=== PATIENT | male | born 1945 | race Caucasian/White ===

== ENCOUNTER 2018-10-02 11:32 | Inpatient (IN) | payer MEDICARE ==
[~2018-10-02] VITALS: Ht 170.2 cm; Wt 133.8 kg
[~2018-10-02 11:32] MED LIST: ADVAIR 250-501 EACH IH; ASPIRIN CHEW81 MG PO; COUMADIN3 MG PO; DILTIAZEM HCL ER PO; GLUCOTROL XL2.5 MG PO; LASIX40 MG PO; METOLAZONE5 MG PO; POTASSIUM CHLO10 ME1 PO; PRAVASTATIN SOD20 MG PO; TERAZOSIN HCL1 MG PO
--- OUTSIDE RECORDS SUMMARY | 2018-10-02 11:36 | XMS REPORT | Clinical Summary ---
Author Author SARIA[facility] Organization [facility] Address Unknown Phone Unavailable Care Team Providers Care Fryer Operator Name Role Phone PCP Unavailable Allergies Not on File Medications Not on file Active Problems Not on file Social History Date Tobacco Use Types Packs/Day Years Used Never Assessed Sex Assigned at Date Recorded Not on file Industry Job Start Date Occupation Not on file Not on file Not on file Travel End Travel History Travel Start No recent travel history available. Last Filed Vital Signs Not on file Plan of Treatment Not on file Results Not on fileafter 10/01/2017 Insurance Payer Benefit Subscriber ID Type Phone Address Plan / Group AETNA - MEDICARE MGD CARE AETNA xxxxxxxx [facility] [phone] [address] [place] [address] [facility] [place]
[2018-10-02 12:28] LABS: BASOPHILS # (AUTO) 0.1 (0.0-0.1); BASOPHILS % 0.6 % (0.0-1.0); EOSINOPHILS # (AUTO) 0.3 (0.0-0.4); EOSINOPHILS % 3.3 % (0.0-6.0); HEMATOCRIT 22.9 % (38.2-49.6); LYMPHOCYTES # (AUTO) 0.9 (1.0-3.2); LYMPHOCYTES % 11.4 % (18.0-39.1); MEAN CORPUSCULAR HEMOGLOBIN 30.4 pg (28-32); MEAN CORPUSCULAR HGB CONC 31.4 g/dL (31-35); MEAN CORPUSCULAR VOLUME 96.6 fL (81-99); MONOCYTES # (AUTO) 1.2 (0.2-0.8); MONOCYTES % 14.8 % (4.4-11.3); NEUTROPHILS # (AUTO) 5.5 (2.1-6.9); NEUTROPHILS % 69.1 % (38.7-80.0); PLATELET COUNT 362 x10e3/uL (140-360); RED BLOOD COUNT 2.37 x10e6/uL (4.3-5.7); RED CELL DISTRIBUTION WIDTH 14.8 % (11.7-14.4)
[2018-10-02] MEDS ORDERED: PANTOPRAZOLE 40 MG 10ML VIAL IV NR (12:30)
[2018-10-02 12:32] LABS: HEMOGLOBIN 7.2 g/dL (14.0-18.0)
[2018-10-02 12:41] LABS: INR 2.97
[2018-10-02 12:42] LABS: PARTIAL THROMBOPLASTIN TIME 59.2 seconds (23.8-35.5)
[2018-10-02 12:50] LABS: ALBUMIN 3.1 g/dL (3.5-5.0); ALBUMIN/GLOBULIN RATIO 0.8 (0.8-2.0); ANION GAP 12.9 mmol/L (8-16); CALCIUM 8.5 mg/dL (8.4-10.2); CREATININE, SERUM 2.41 mg/dL (0.72-1.25); MAGNESIUM 2.3 MG/DL (1.3-2.1); POTASSIUM 3.9 mmol/L (3.5-5.1)
--- NOTE | 2018-10-02 13:05 | Diagnostic Imaging Report ---
Examination: Single AP view of the chest. COMPARISON: None. INDICATION: Atrial fibrillation DISCUSSION: Lines/tubes: None. Lungs: Low lung volumes with atelectasis. No consolidation or edema. Pleura: There is no pleural effusion or pneumothorax. Heart and mediastinum: Prominent heart size. Bones and soft tissues: No acute bony abnormalities. IMPRESSION: 1. Low inspiration chest radiograph. No acute finding. Signed by: Dr. Rico West M.D. on 10/02/2018 1:02 PM
[2018-10-02] MEDS ORDERED: FUROSEMIDE INJ 10 MG/ML 2 ML VIAL IV PRN (13:30)
[2018-10-02] MEDS ORDERED: SODIUM CHLORIDE 0.9% 250ML 250 ML IV ONE (13:30)
[2018-10-02] MEDS ORDERED: DEXTROSE 50% SYRINGE 50 ML IV PRN (14:30)
--- OUTSIDE RECORDS SUMMARY | 2018-10-02 14:42 | XMS REPORT | Clinical Summary ---
Author Author SARIAH [facility] Organization [facility] Address Unknown Phone Unavailable Care Team Providers Care Fleet Manager Name Role Phone PCP Unavailable Allergies Not [...] AETNA - MEDICARE MGD CARE AETNA xxxxxxxx [facility] [phone] [id number] [place] [address] [facility] [place]
--- OUTSIDE RECORDS SUMMARY | 2018-10-02 14:42 | XMS REPORT ---
Author [facility] Address Unknown Phone Unavailable Care Team Providers Care Pantry Steward/Stewardess Name Role Phone Lilliana MARTINEZ Unavailable Unavailable Problems This patient has no known problems. Allergies, Adverse Reactions, Alerts This patient has no known allergies or adverse reactions. Medications This patient has no known medications. Results Test Description Test Time Test Comments Text Results Atomic Results Result Comments CHEST SINGLE (PORTABLE) 2018-10-02 13:01:00 [place] [address] Patient Name: VELMA RICO MR #: [id number] : 1945 Age/Sex: 73/M Req #: [id number] Adm Physician: Ordered by: ZAKIYA MARTINEZ MD Report #: [id number] Location: ER Room/Bed: Procedure: [id number] DX/CHEST SINGLE (PORTABLE) Exam Date: 10/02/18 Exam Time: 1210 REPORT STATUS: Signed Examination: Single AP view of the chest. ALFA RISON: None. INDICATION: Atrial fibrillation DISCUSSION: Lines/tubes: None. Lungs: Low lung volumes with atelectasis. No consolidation or edema. Pleura: There is no pleural effusion or pneumothorax. Heart and mediastinum: Prominent heart size. Bones and soft tissues: No acute bony abnormalities. IMPRESSION: 1. Low inspiration chest radiograph. No acute finding. Signed by: Dr. Jc Muhammad M.D. on 10/02/2018 1:02 PM Dictated By: JC MUHAMMAD MD 1302 Transcribed By: RAE on 10/02/18 1302 COPY TO: ZAKIYA MARTINEZ MD
--- NOTE | 2018-10-02 15:30 | NUR ---
Patient admitted to unit from ER. Patient arrived via wheelchair. Patient is AAox3. Wears glasses. Ambulates with a cane. No shortness of breath noted at rest or exertion. Lung moreno clear to auscultation. Bowel sounds present x4. LBM this morning and no dark stools noted per patient. 2+ edema noted to BLE. NO c/o pain. Right AC Iv in place. Patient to receive blood transfusion.
[2018-10-02 16:08] VITALS: BP 173/76
[2018-10-02] MEDS ORDERED: LEVOTHYROXINE50 MCG PO (16:20)
[2018-10-02] MEDS ORDERED: DILTIAZEM 24HR180 MG PO (16:20)
[2018-10-02] MEDS: INSULIN LISPRO 100 UNIT/1 ML 3ML VIAL SQ SCH ×2 (16:30→21:00)
[2018-10-02] MEDS ORDERED: HYDRALAZINE HCL 25 MG TAB ONE (16:38)
[2018-10-02] MEDS: HYDRALAZINE HCL 25 MG TAB PO PRN (16:43)
[2018-10-02 16:54] VITALS: BP 173/76
[2018-10-02] MEDS ORDERED: SODIUM CHLORIDE 0.9% 250ML 250 ML ONE (17:29)
--- NOTE | 2018-10-02 17:40 | NUR ---
patient receiving blood at this time. Patient tolerating well.
[2018-10-02 18:00] LABS: BASOPHILS # (AUTO) 0.1 (0.0-0.1); BASOPHILS % 0.8 % (0.0-1.0); EOSINOPHILS # (AUTO) 0.2 (0.0-0.4); EOSINOPHILS % 2.2 % (0.0-6.0); HEMATOCRIT 27.7 % (38.2-49.6); HEMOGLOBIN 7.9 g/dL (14.0-18.0); LYMPHOCYTES # (AUTO) 1.1 (1.0-3.2); LYMPHOCYTES % 12.6 % (18.0-39.1); MEAN CORPUSCULAR HEMOGLOBIN 29.9 pg (28-32); MEAN CORPUSCULAR HGB CONC 28.5 g/dL (31-35); MEAN CORPUSCULAR VOLUME 104.9 fL (81-99); MONOCYTES % 10.9 % (4.4-11.3); NEUTROPHILS # (AUTO) 6.4 (2.1-6.9); NEUTROPHILS % 72.7 % (38.7-80.0); PLATELET COUNT 309 x10e3/uL (140-360); RED BLOOD COUNT 2.64 x10e6/uL (4.3-5.7); RED CELL DISTRIBUTION WIDTH 14.9 % (11.7-14.4)
--- NOTE | 2018-10-02 18:10 | NUR ---
Nurse went to check on patient and patient noted to be having some shortness of breath. Patient states "I just feel funny." Nurse informed for patient to tell her what he feels. He says my arms feel like lead and my chest feels tight. Rate of transfusion lowered to 75ml, patient placed on O2 at 2L NC. Afib on heart monitor. Patient has a history of Afib. Call placed to MD to inform. Awaiting call back. Call placed to charge nurse to evaluate patient as well
--- NOTE | 2018-10-02 18:28 | NUR ---
Spoke with Dr. Dominguez and received new order for benadryl 25mg po, solumedrol 40mg IV and tylenol 650mg. MD informed not to stop the blood. no reaction at this time. Continue to monitor.
[2018-10-02] MEDS ORDERED: ACETAMINOPHEN 325 MG TAB PO ONE (18:30)
[2018-10-02] MEDS ORDERED: DIPHENHYDRAMINE HCL 25 MG CAP PO ONE (18:30)
[2018-10-02] MEDS ORDERED: METHYLPREDNISOLONE SOD SUCC 40 MG/ML VIAL 1ML IV ONE (18:30)
--- NOTE | 2018-10-02 18:48 | NUR ---
Dr. Lim in room assessing patient and new order for a STAT EKG.
--- NOTE | 2018-10-02 19:04 | NUR ---
Walking rounds done and patient noted to be feeling better he said. Patient's shortness of breath has decreased. Patient sitting on edge of bed and no s/s of distress noted
--- NOTE | 2018-10-02 19:10 | NUR ---
REPORT TAKEN FROM AM RN.WALKING ROUNDS DONE.BLOOD IS TRANSFUSING.EKG TAKEN.REPORTED TO .KEEP MONITOR THE PT.
[2018-10-02 20:00] VITALS: BP 149/67
[2018-10-02 21:00] VITALS: BP 149/67
[2018-10-02] MEDS: PANTOPRAZOLE 40 MG 10ML VIAL IV SCH (22:00)
[2018-10-02] MEDS: FUROSEMIDE INJ 10 MG/ML 2 ML VIAL IV PRN (22:00)
--- NOTE | 2018-10-02 22:00 | NUR ---
FIRST UNITS OF BLOOD COMPLETED.V/S STABLE.INJ.LASIX 40 MG IV GIVEN.EDUCATE PT ABOUT THE SIDE EFFECT OF LASIX.NO RESP.DISTRESS.NO PAIN VOICED.PT REFUSED TO PUT BED ALARM ON.BED LOCKED AN DIN LOWEST POSITION.PHONE AND CALL LIGHT WITHIN REACH.INSTRUCTED TO CALL FOR ASSISTANCE NEEDED.
--- NOTE | 2018-10-02 22:29 | NUR ---
Cardiology Consult Dictation# [id number]
--- NOTE | 2018-10-02 23:30 | NUR ---
second unit blood started.v/s stable.no resp.distress.keep monitor the pt.
[2018-10-03] VITALS (8 sets, daily range): BP systolic 144–167; BP diastolic 61–71
--- NOTE | 2018-10-03 | Consultation ---
DATE OF CONSULTATION: 10/02/2018 Cardiology Consultation REQUESTING PHYSICIAN: Dr. Dominguez. REASON FOR CONSULTATION: Atrial fibrillation. HISTORY OF PRESENT ILLNESS: This is a 73-year-old man with coronary artery disease with known 100% [employer], carotid artery disease with 50% stenosis of bilateral internal carotid artery and peripheral arterial disease, status post atherectomy and drug-coated balloon angioplasty of the left external iliac and superficial femoral artery with remaining stenosis of the right SFA, atrial fibrillation, on Xarelto, hypertension, hyperlipidemia, diabetes mellitus, and chronic kidney disease, who was instructed to present to the ER due to anemia. The patient reports he has been feeling fatigued for the last week. He had labs drawn by his PCP, and was found to be anemic. He was instructed to present to the ER for further evaluation. Of note, the patient indicates he has chest pressure when he lays down that is associated with shortness of breath. Denies any nausea, diaphoresis, or radiation. The episode lasted approximately 20 minutes and with one prior episode earlier this week as well. REVIEW OF SYSTEMS: Negative as per HPI. PAST MEDICAL HISTORY: 1. Coronary artery disease with known [employer] of the LAD. 2. Carotid artery disease with 50% stenosis of the bilateral ICA. 3. Peripheral arterial disease, status post atherectomy and drug-coated balloon angioplasty of the left external iliac and superficial femoral arteries with remaining stenosis in the right SFA, atrial fibrillation, on Xarelto. 4. Hypertension. 5. Hyperlipidemia. 6. Diabetes mellitus. 7. Chronic kidney disease. 8. COPD. PAST SURGICAL HISTORY: 1. Carpal tunnel surgery. 2. Right knee surgery. ALLERGIES: PLEASE SEE EMR. MEDICATIONS: Please see medication list. SOCIAL HISTORY: Denies tobacco or illicit drugs. He does indicate he drinks about 3-4 drinks every other day. FAMILY HISTORY: Noncontributory to current illness. PHYSICAL EXAMINATION: VITAL SIGNS: Temperature 96 degrees, pulse 87, respiratory rate 18, blood pressure 173/76, and oxygen saturation 100% on 2 L nasal cannula. GENERAL: Well-developed and well-nourished man, in no acute distress. Awake and alert. HEENT: Normocephalic and atraumatic. Pupils are equal. No scleral icterus. NECK: Supple. No thyromegaly or cervical lymphadenopathy. No carotid bruits. LUNGS: Clear to auscultation bilaterally. No wheezes or crackles. CARDIOVASCULAR: Normal rate, irregularly irregular, 3/6 systolic murmur. Normal S1 and S2. ABDOMEN: Soft and nontender. EXTREMITIES: No edema. NEUROLOGIC: Nonfocal exam. LABORATORY DATA: Sodium 135, potassium 3.9, chloride 109, CO2 is 17, BUN 46, and creatinine 2.46. Troponin 0.017. BNP 799. INR 2.97. WBC 8.8, hemoglobin 7.9, hematocrit 27.7, and platelets 309. EKG, atrial fibrillation with right bundle-branch block, inferior infarct, age undetermined. IMPRESSION: 1. Anemia. 2. Chest pain. 3. Atrial fibrillation. 4. Coronary artery disease, known chronic total occlusion of the left anterior descending. 5. Carotid artery disease with 50% stenosis of the bilateral internal carotid arteries. 6. Peripheral arterial disease, status post drug-coated balloon angioplasty, atherectomy of left external iliac and superficial femoral artery, pending staged revascularization of right superficial femoral artery. 7. Hypertension and hyperlipidemia. 8. Diabetes mellitus. 9. Chronic kidney disease. 10. Chronic obstructive pulmonary disease. RECOMMENDATIONS: Repeat EKG. Trend cardiac enzymes to rule out myocardial infarction. The patient has known chronic systolic heart failure with an EF of 45% on last echo at the office. Check BNP. Could benefit from diuresis given need for blood transfusion. Hold all anticoagulation at this time. We will order a stool occult blood. The patient's heart rate is controlled. Continue home cardiac medications. Check fasting lipid panel. Monitor patient closely on telemetry. Further evaluation of bleeding per primary, titrate up antianginal therapies given the patient's known [employer]. The patient's last cath was reviewed. Other than the LAD [employer] and 99% subtotal OM, there were no other obstructive lesions. We will titrate up antianginal therapy. The patient does have known aortic stenosis by echo performed within the last few months. If the patient is ruled out for myocardial infarction, no further cardiac evaluation is indicated at this time. Thank you for this consult. We will continue to follow. Dorita Lim MD ABS/MODL /[id number]
[2018-10-03 00:27] LABS: CREATINE KINASE MB 7.7 ng/mL (0-5.0)
[2018-10-03] MEDS: FUROSEMIDE INJ 10 MG/ML 2 ML VIAL IV PRN (03:20)
--- NOTE | 2018-10-03 03:27 | NUR ---
BLOOD TRANSFUSION COMPLETED.V/S STABLE.PT TOLERATED WELL.INJ.LASIX 40 MG IV GIVEN.NO REACTION NOTED.
[2018-10-03] MEDS: HYDRALAZINE HCL 25 MG TAB PO PRN (05:33)
[2018-10-03 06:00] LABS: BASOPHILS % 0.2 % (0.0-1.0); HEMATOCRIT 30.2 % (38.2-49.6); HEMOGLOBIN 9.6 g/dL (14.0-18.0); LYMPHOCYTES # (AUTO) 0.2 (1.0-3.2); LYMPHOCYTES % 3.8 % (18.0-39.1); MEAN CORPUSCULAR HEMOGLOBIN 29.4 pg (28-32); MEAN CORPUSCULAR HGB CONC 31.8 g/dL (31-35); MONOCYTES # (AUTO) 0.1 (0.2-0.8); MONOCYTES % 0.9 % (4.4-11.3); NEUTROPHILS % 94.2 % (38.7-80.0); PLATELET COUNT 307 x10e3/uL (140-360); RED BLOOD COUNT 3.27 x10e6/uL (4.3-5.7)
[2018-10-03 06:14] LABS: MEAN CORPUSCULAR VOLUME 92.4 fL (81-99)
[2018-10-03 06:24] LABS: ALBUMIN 3.4 g/dL (3.5-5.0); ALBUMIN/GLOBULIN RATIO 0.9 (0.8-2.0); ANION GAP 15.9 mmol/L (8-16); CALCIUM 8.9 mg/dL (8.4-10.2); CREATININE, SERUM 2.54 mg/dL (0.72-1.25); POTASSIUM 3.9 mmol/L (3.5-5.1)
[2018-10-03 06:31] LABS: CREATINE KINASE MB 9.4 ng/mL (0-5.0)
--- NOTE | 2018-10-03 07:00 | NUR ---
REPORT GIVEN TO THE ONCOMING RN.WALKING ROUNDS DONE.STABLE CONDITION.
[2018-10-03 07:12] LABS: FERRITIN 19.58 ng/mL (21.81-274.66)
[2018-10-03 07:38] LABS: LYMPHOCYTES % (MANUAL) 2 % (19-48); NEUTROPHILS % (MANUAL) 98 % (40-74); PLATELET ESTIMATE ADEQUATE; PLATELET MORPHOLOGY COMMENT NORMAL; RBC MORPHOLOGY COMMENT NORMAL
[2018-10-03] MEDS: PANTOPRAZOLE 40 MG 10ML VIAL IV SCH (08:44)
[2018-10-03] MEDS: INSULIN LISPRO 100 UNIT/1 ML 3ML VIAL SQ SCH ×4 (08:44→20:33)
[2018-10-03] MEDS: DILTIAZEM HCL ER 120 MG CAP PO SCH (08:44)
--- NOTE | 2018-10-03 08:55 | NUR ---
adair wharton regarding pt c/o pressure to chest describing it as a 6/10 v/s taken are within normal limits. tele reading showing a fib at a controlled rate pt states he felt this way yesterday. looked at previous ekg ,one done yesterday and was showing a fib while pt presented these same symptoms. cardiac markers x3 have been negative. will wait on cardio to call back for further orders will continue to monitor pt
[2018-10-03] MEDS ORDERED: DILTIAZEM HCL 180 MG CAP ER PO SCH (09:00)
[2018-10-03] MEDS ORDERED: PANTOPRAZOLE 40 MG 10ML VIAL IV SCH (09:00)
--- NOTE | 2018-10-03 10:40 | NUR ---
MD METS ROUNDED ON PT. PT STATES PRESSURE TO CHEST HAS SUBSIDED. MOSTLY C/O HEAVINESS TO EXTREMITIES AND NECK. MD STATES WEAKNESS COULD BE DUE TO ANEMIA, UPON CARDIAC STANDPOINT PT IS STABLE. WILL CONTINUE CARE AT THIS TIME
[2018-10-03] MEDS ORDERED: PHYTONADIONE 5 MG TAB PO NR ×2 (11:45→14:00)
[2018-10-03 12:07] LABS: BASOPHILS % 0.1 % (0.0-1.0); HEMOGLOBIN 10.2 g/dL (14.0-18.0); LYMPHOCYTES # (AUTO) 0.4 (1.0-3.2); LYMPHOCYTES % 4.6 % (18.0-39.1); MEAN CORPUSCULAR HEMOGLOBIN 29.8 pg (28-32); MEAN CORPUSCULAR HGB CONC 31.9 g/dL (31-35); MEAN CORPUSCULAR VOLUME 93.6 fL (81-99); MONOCYTES # (AUTO) 0.2 (0.2-0.8); MONOCYTES % 2.7 % (4.4-11.3); NEUTROPHILS # (AUTO) 7.4 (2.1-6.9); NEUTROPHILS % 91.5 % (38.7-80.0); PLATELET COUNT 370 x10e3/uL (140-360); RED BLOOD COUNT 3.42 x10e6/uL (4.3-5.7); RED CELL DISTRIBUTION WIDTH 16.6 % (11.7-14.4)
[2018-10-03 12:53] LABS: CREATINE KINASE MB 10.4 ng/mL (0-5.0)
--- NOTE | 2018-10-03 13:41 | NUR ---
SOCIAL WORK INITIAL ASSESSMENT Die Lay Out Worker to bedside to discuss plan of care with patient/family. CM/SW role and care transitions discussed. Anticipated discharge plan discussed along with duration of care. CM/SW discussed patients right to make decisions in care. CM/SW work hours given. Patient lives: IN APARTMENT BY SELF Admit/Transfer: VIA ED POA/Emergency contact: TWIN SISTER IN [facility] [place] [phone] Current/Previous Home Health: NONE PCP/Follow-up Care: Kaylen HEMPHILL Current/Previous DME:[facility] Other Services: NONE Employment Status: RETIRED Areas of Concerns: NONE Referral Needs: NONE Education Needs: NONE IMM/KEANE given and signed (if applicable): IMM Goal for discharge: RETURN HOME NO NEEDS CM/SW left business card at the bedside with contact information. Name and number was also written on the patients whiteboard. Patient verbalized understanding of discussion. CM will follow-up with ongoing discharge and transition of care needs.
--- NOTE | 2018-10-03 13:56 | NUR ---
Nutrition Screen Note RD Recommendation for Physician: Continue diet as ordered Plan of Care: RD following, monitoring for adequacy and tolerance Nutrition reason for involvement: Nutrition Risk Trigger - MST Primary Diagnose(s):Anemia, CHF, Atrial flutter Ht:67 in Wt:295lbs BMI:46.2 kg/m2 IBW:148lbs RD Assessment:(10/03/2018) Initial encounter with patient. Pt is reporting a good PO intake. Had some questions about the menu and they were answeres. Pt denies any nausea, vomiting or diarrhea, nor has any difficulty chewing or swallowing. Denies any wt changes Current Diet: Cardiac diet Malnutrition Evaluation (10/03/2018) The patient does not meet criteria for a specified degree of malnutrition at this time. Will re-evaluate at follow-up as appropriate. Diet Education Needs Assessment: Diet education not indicated. Diet Adequacy: Meeting calorie needs, Meeting protein needs, Meeting fluid needs Tolerance: Tolerating PO Nutrition Care Level:Cyril Chavez RD, LD, CNSC
--- NOTE | 2018-10-03 14:42 | Consultation ---
DATE OF CONSULTATION: Gastroenterology Consultation REASON FOR CONSULTATION: Anemia. HISTORY OF PRESENT ILLNESS: Mr. Alcala is a very pleasant 73-year-old man with below past medical history. He has considerable history of anemia. He requires chronic anticoagulation. He denies any overt bleeding aside from when he scratches himself and has minor skin bleeding. Previously, he was having a lot of trouble with anemia, requiring transfusions. During that time, he reports he already underwent EGD, colonoscopy, and a capsule endoscopy as well without any revealing thing. He denies any upper or lower GI symptoms. His outpatient chart was reviewed. He underwent capsule endoscopy on November 22, 2015. At that time, he had AVM, an hour and 23 minutes into his study without active bleeding as well as healing duodenal ulcer. His EGD on August 11, 2015, had shown some reflux esophagitis, hiatal hernia, gastritis, and had been otherwise unremarkable. His colonoscopy on September 08, 2015, showed a lipoma, colonic polyps, which were removed and diverticulosis as well as uncomplicated internal hemorrhoids. He was recommended to have another colonoscopy in 3 years or repeat colon screening with Dr. Graham. PAST MEDICAL HISTORY: Hypertension, diabetes, COPD, CHF, coronary artery disease, atrial fibrillation, hypothyroidism, and chronic kidney disease. PAST SURGICAL HISTORY: Includes carpal tunnel surgery, diagnostic and therapeutic heart catheterization, angioplasty and stent. MEDICATIONS: Reviewed. Please see MAR medication reconciliation form. ALLERGIES: REVIEWED. SOCIAL HISTORY: No alcohol, tobacco, or illicit substance. FAMILY HISTORY: Reviewed, noncontributory. REVIEW OF SYSTEMS: A 10-system is positive for that mentioned in HPI. PHYSICAL EXAMINATION: GENERAL: He is calm, alert, and oriented, in no acute distress. HEENT: Pupils are equal, round, and reactive to light. NECK: Supple. LUNGS: Clear. CARDIOVASCULAR: Irregularly irregular. ABDOMEN: Soft, nontender, and nondistended. Normal bowel sounds. EXTREMITIES: He has mild pedal edema. PSYCHIATRIC: Calm, cooperative. NEUROLOGIC: Nonfocal. LABORATORY DATA: The electronic health record was reviewed for laboratory . ASSESSMENT AND PLAN: 1. [id number] anemia without overt bleeding and with a normal MCV. 2. History of peptic ulcer disease. 3. History of colon polyps. 4. 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 It is most likely that his ongoing anemia is related to AVM disease. At the current time, I would recommend checking iron studies and considering iron replacement if deficient. At the current time, he would prefer to avoid repeat endoscopic evaluation. As he has most likely bleeding related AVMs on anticoagulation, it is not completely unreasonable, however, it has been several years since his last evaluation and he is due for a screening colonoscopy if desired given his comorbidities. At the current time, we will go ahead and watch him and follow up his iron studies. Thank you very much for asking me to see Mr. Alcala. Any questions or concerns, please do not hesitate to contact me. We will follow with you. Ashely Serra MD RLS/MODL /[id number]
[2018-10-03] MEDS: PANTOPRAZOLE SOD 40 MG TABEC PO SCH (14:48)
--- NOTE | 2018-10-03 15:00 | Progress Note ---
DATE: Cardiology Progress Note SUBJECTIVE: The patient reports heaviness of his head, fatigue, pruritus of his left upper extremity. Chest discomfort this morning resolved spontaneously. OBJECTIVE: VITAL SIGNS: Temperature 96.6, heart rate 94, respirations 16, blood pressure 156/65, and oxygen saturation 98% on room air. GENERAL: He is an elderly man, seated comfortably at bedside, in no apparent distress. CARDIOVASCULAR: Irregularly irregular. Normal rate. Systolic murmur at right upper sternal border. LUNGS: Clear to auscultation. ABDOMEN: Soft and nontender. EXTREMITIES: No edema. LABORATORY DATA: Hemoglobin 9.6. Creatinine 2.54. Troponin negative x3. Telemetry monitoring revealed atrial fibrillation. IMPRESSION: 1. Acute anemia. 2. Precordial pain. 3. Atrial fibrillation. 4. Coronary artery disease with known chronic total occlusion of the left anterior descending. 5. Carotid artery disease. 6. Peripheral arterial disease status post intervention. 7. Hypertension. 8. Hyperlipidemia. 9. Diabetes mellitus. 10. Chronic kidney disease. 11. Chronic systolic congestive heart failure. RECOMMENDATIONS: Continue telemetry monitoring. Anemia workup and treatment per primary team. The patient has mild chronic systolic congestive heart failure and we will continue current cardiovascular medications. The patient has negative troponin x3. There is no evidence of acute coronary syndrome at this point in time. The patient also has a component of anxiety and treatment per primary team. I have titrated antianginal therapies and we will continue to follow clinically. DO RUDI Zimmerman/MODL /[id number]
--- NOTE | 2018-10-03 15:22 | Diagnostic Imaging Report ---
EXAM: CT Chest without contrast INDICATION: Shortness of breath. COMPARISON: Chest radiograph 10/02/18. TECHNIQUE: Chest was scanned utilizing a multidetector helical scanner from the lung apex through the level of the adrenal glands without administration of IV contrast. Coronal and sagittal reformations were obtained. Routine protocol was performed. Dose modulation, iterative reconstruction, and/or weight based adjustment of the mA/kV was utilized to reduce the radiation dose to as low as reasonably achievable. RADIATION DOSE: Total DLP: 458.4 mGy*cm COMPLICATIONS: None FINDINGS: LINES/ TUBES: None. LUNGS AND AIRWAYS/PLEURA: The central airways are patent. There is mild diffuse bronchial wall thickening. There are small bilateral pleural effusions, right greater than left. There are mild patchy opacities within the right lower lobe. Opacities limit evaluation for underlying lung nodule. Scattered calcified and noncalcified lung nodules measuring up to 2 mm. There is a 3 mm calcified granuloma in the left lower lobe on image 28. There is scarring/atelectasis in the lingula. HEART AND MEDIASTINUM: The thyroid gland is normal. No mediastinal, hilar or axillary lymphadenopathy. There is mild cardiomegaly. No evidence of pericardial effusion. There are extensive coronary atherosclerosis. Extensive atherosclerotic calcifications of the thoracic aorta and great vessels. Aortic valvular calcifications. UPPER ABDOMEN: Limited non-contrast views of the upper abdomen show no abnormality within the partially visualized liver, spleen, or stomach. BONES: No acute osseous abnormality. No suspicious lytic or blastic lesions. Degenerative changes of the visualized spine. IMPRESSION: Small bilateral pleural effusions with patchy opacities in the right lower lobe, which may represent atelectasis or pneumonia in the appropriate clinical context. Signed by: Dr. Sherita Renteria MD on 10/03/2018 3:19 PM
[2018-10-04] VITALS (7 sets, daily range): BP systolic 123–177; BP diastolic 59–78
--- NOTE | 2018-10-04 00:51 | History and Physical ---
CHIEF COMPLAINT: Increasing shortness of breath, rapid heart rate, and anemia. PRIMARY CARE PHYSICIAN: Redd Franco MD. HISTORY OF PRESENT ILLNESS: The patient is a 73-year-old male with increasing fatigue and shortness of breath. The patient had his lab work checked previously and noticed that he has severe anemia. The patient was sent to the emergency room for an evaluation. In the emergency room, the patient was found to have hemoglobin and hematocrit of 7.2 and 22.9 respectively. The patient now received 2 units of blood transfusion. The patient is otherwise stable. He has previously had multiple workups in the past. He has iron deficiency anemia. He does have history of diverticulosis. He is on blood thinner for his atrial fibrillation. The patient is taking Xarelto. His total iron is 25 with iron saturation of 5% and transferrin is elevated at 377. BUN and creatinine are 45 and 2.5. The patient is pending for further evaluation. In the emergency room, the patient's heart rate was under control at 77 beats minute. The patient does have atrial fibrillation, however. PAST MEDICAL HISTORY: Chronic anemia, most likely secondary to diverticulosis. He is on anticoagulant therapy for atrial fibrillation. He had coronary artery disease with previous intervention. He has stent previously. He had carotid disease with noncritical stenosis. Peripheral vascular disease, hypertension, dyslipidemia, diabetes type 2, chronic kidney disease, and COPD. PAST SURGICAL HISTORY: Right knee surgery, carpal tunnel surgery, and angioplasty. SOCIAL HISTORY: The patient does not smoke or use alcohol. No recreational drugs. ALLERGIES: MORPHINE. HOME MEDICATIONS: List is reviewed. Aspirin, diltiazem, Xarelto, metolazone, pravastatin, levothyroxine, and Lasix. PHYSICAL EXAMINATION: VITAL SIGNS: Temperature is 97, blood pressure 173/74, pulse rate is 74, and respirations 18. GENERAL: The patient is not in acute distress. He is awake. HEENT: Normocephalic and atraumatic. Anicteric. NECK: Supple grossly. PULMONARY: Diminished breath sounds at the bases without any wheezing or rales. CARDIOVASCULAR: S1 and S2. Rate controlled atrial fibrillation. ABDOMEN: Obese. EXTREMITIES: No cyanosis or edema. NEUROLOGIC: No gross focal deficits. LABORATORY DATA: Sodium is 135, potassium 3.9, chloride 109, bicarb 17, BUN 46, creatinine 2.4, and glucose 130. AST and ALT are normal. Troponins negative. WBC is 7.7, hemoglobin 7.2, hematocrit 22.9, and platelets 362. Fecal occult blood is positive. INR is 2.97. IMPRESSION: 1. Chronic anemia secondary to , most likely diverticular bleed. The patient is on anticoagulant therapy. 2. Multiple chronic baseline problems including congestive heart failure, atrial fibrillation, chronic anemia, and diverticular disease. PLAN: The patient is pending for endoscopy. Continue with home medication. Hold off on his anticoagulant therapy for now. Repeat lab work. Many pending on further evaluation. IV Lasix. The chest x-ray did show some possible vascular congestion. We will obtain a CT of the chest without contrast. MD MACK Rubio/NANO /[id number]
[2018-10-04 06:05] LABS: BASOPHILS % 0.3 % (0.0-1.0); EOSINOPHILS % 0.3 % (0.0-6.0); HEMOGLOBIN 8.8 g/dL (14.0-18.0); LYMPHOCYTES # (AUTO) 0.7 (1.0-3.2); LYMPHOCYTES % 6.3 % (18.0-39.1); MEAN CORPUSCULAR HEMOGLOBIN 29.6 pg (28-32); MEAN CORPUSCULAR HGB CONC 31.4 g/dL (31-35); MEAN CORPUSCULAR VOLUME 94.3 fL (81-99); MONOCYTES % 8.8 % (4.4-11.3); NEUTROPHILS # (AUTO) 9.5 (2.1-6.9); NEUTROPHILS % 83.7 % (38.7-80.0); PLATELET COUNT 305 x10e3/uL (140-360); RED BLOOD COUNT 2.97 x10e6/uL (4.3-5.7); RED CELL DISTRIBUTION WIDTH 16.6 % (11.7-14.4)
[2018-10-04 06:28] LABS: ANION GAP 15.7 mmol/L (8-16); CALCIUM 8.6 mg/dL (8.4-10.2); CREATININE, SERUM 2.65 mg/dL (0.72-1.25); POTASSIUM 3.7 mmol/L (3.5-5.1)
[2018-10-04] MEDS: INSULIN LISPRO 100 UNIT/1 ML 3ML VIAL SQ SCH ×4 (07:30→21:00)
[2018-10-04] MEDS: DILTIAZEM HCL ER 120 MG CAP PO SCH (08:30)
[2018-10-04] MEDS: PANTOPRAZOLE SOD 40 MG TABEC PO SCH (08:30)
[2018-10-04] MEDS ORDERED: ACETAMINOPHEN 325 MG TAB PO NR (10:45)
[2018-10-04] MEDS ORDERED: DIPHENHYDRAMINE HCL 25 MG CAP PO NR (10:45)
[2018-10-04] MEDS: IRON SUCROSE 100 MG in SODIUM CHLORIDE 0.9% 100 ML 100 ML IV SCH (11:52)
[2018-10-04] MEDS ORDERED: NEBIVOLOL 10 MG TAB PO SCH (12:15)
--- NOTE | 2018-10-04 12:31 | NUR ---
SPOKE WITH MD ALICEA REGARDING HIGH BP OF 177/78 AND HR OF 78 NEW ORDERS FOR BYSTOLIC STARTED DAILY GIVEN
--- NOTE | 2018-10-04 14:24 | NUR ---
TELE CALLED PT HR DROPPED TO 48. WENT INTO PT ROOM , PT IS IN NO S.S OF DISTRESS, RESTING COMFORTABLY IN BED ,WILL CONTINUE TO MONITOR CLOSELY
--- NOTE | 2018-10-04 15:44 | NUR ---
spoke with md wharton regarding pt sustained low hr in the 40s, reported pt is asymptomatic. states he will be here shortly to round . no orders received at this time
[2018-10-04] MEDS ORDERED: PEG (High)/E-LYTE SOLN 4,000 ML BTL PO NR (16:45)
--- NOTE | 2018-10-04 18:39 | NUR ---
md wharton has rounded on pt and has addressed low hr by changing bp medication. pt remains asymptomatic .will continue to monitor
--- NOTE | 2018-10-04 20:39 | Progress Note ---
DATE: 10/04/2018 Cardiology Progress Note SUBJECTIVE: No further anginal symptoms. No other events. Blood pressure was elevated, given Bystolic. OBJECTIVE: VITAL SIGNS: Temperature is 96.3, heart rate is 56, respirations are 18, blood pressure is 133/59, and ox saturation is 98% on room air. GENERAL: He is well-appearing, well-built man, in no apparent distress. CARDIOVASCULAR: Irregularly irregular. Normal rate. Systolic murmur at the right sternal border. LUNGS: Clear to auscultation. ABDOMEN: Soft, nontender, and nondistended. EXTREMITIES: No edema. MEDICATIONS: Cardiovascular medications reviewed. Notable, the patient received Bystolic and Cardizem today. LABORATORY VALUES: Reviewed. Telemetry monitoring this morning revealed atrial fibrillation. IMPRESSION: 1. Acute anemia. 2. Precordial pain. 3. Atrial fibrillation. 4. Coronary artery disease. 5. Carotid artery disease. 6. Peripheral artery disease, status post intervention. 7. Hypertension. 8. Hyperlipidemia. 9. Chronic systolic congestive heart failure. 10. Xbojz-zl-mgdsjnl kidney disease. RECOMMENDATIONS: Continue close telemetry monitoring. The patient is tachy-bradycardic, however, he did receive Bystolic and Cardizem today. We will discontinue his Cardizem. Continue Bystolic and add amlodipine today for better blood pressure control. No evidence of acute coronary syndrome at this point in time for his chest pain as his troponin values are within normal limits x3. The patient has a component of anxiety and treatment per primary team. Jordi Birch DO BM/MODL /[id number]
--- NOTE | 2018-10-04 22:15 | NUR ---
PT ON BOWEL PREP FOR EGD AND COLONOSCOPY TOMORROW. CLEAR BM NOTED.
[2018-10-05] VITALS (7 sets, daily range): BP systolic 137–178; BP diastolic 63–74
[2018-10-05] MEDS: LEVOTHYROXINE SODIUM 50 MCG TAB PO SCH (06:00)
[2018-10-05 07:02] LABS: BASOPHILS # (AUTO) 0.1 (0.0-0.1); BASOPHILS % 0.7 % (0.0-1.0); EOSINOPHILS # (AUTO) 0.4 (0.0-0.4); EOSINOPHILS % 5.1 % (0.0-6.0); HEMATOCRIT 29.2 % (38.2-49.6); HEMOGLOBIN 9.3 g/dL (14.0-18.0); LYMPHOCYTES # (AUTO) 1.2 (1.0-3.2); LYMPHOCYTES % 14.6 % (18.0-39.1); MEAN CORPUSCULAR HEMOGLOBIN 29.3 pg (28-32); MEAN CORPUSCULAR HGB CONC 31.8 g/dL (31-35); MEAN CORPUSCULAR VOLUME 92.1 fL (81-99); MONOCYTES # (AUTO) 0.8 (0.2-0.8); MONOCYTES % 9.3 % (4.4-11.3); NEUTROPHILS % 69.8 % (38.7-80.0); PLATELET COUNT 317 x10e3/uL (140-360); RED BLOOD COUNT 3.17 x10e6/uL (4.3-5.7); RED CELL DISTRIBUTION WIDTH 16.1 % (11.7-14.4)
--- NOTE | 2018-10-05 07:08 | NUR ---
UPON WALKING ROUNDS, PM NURSE STATES PT IS CLEAR FOR COLONOSCOPY AND LAST BM WAS LAST NIGHT, PT EDUCATED ON NPO PENDING PROCEDURES, VERBALIZED UNDERSTANDING, CALL LIGHT WITHIN REACH
[2018-10-05] MEDS: INSULIN LISPRO 100 UNIT/1 ML 3ML VIAL SQ SCH ×4 (07:30→20:45)
[2018-10-05] MEDS: PANTOPRAZOLE SOD 40 MG TABEC PO SCH (07:30)
[2018-10-05] MEDS: AMLODIPINE BESYLATE 10 MG TAB PO SCH (09:00)
[2018-10-05] MEDS: NEBIVOLOL 10 MG TAB PO SCH (09:00)
--- NOTE | 2018-10-05 09:05 | NUR ---
CONSENT COMPLETED FOR GERRI AND COLONOSCOPY, PT STATES HE IS CLEAR, LAST BM WAS "LAST NIGHT", PT EDUCATED TO CALL FOR ASSISTANCE PRIOR TO GETTING OOB FOR SAFETY AND THE NEXT TIME HE HAS BM SO NURSE CAN ACCESS, PT VERBALIZED UNDERSTANDING, CALL LIGHT WITHIN REACH
--- NOTE | 2018-10-05 09:22 | NUR ---
IMM EXPLAINED TO PT, SIGNED AND PLACED ON CHART COPY TO PT IN CARE TRANSITION FOLDER
[2018-10-05] MEDS ORDERED: SODIUM CHLORIDE 0.9% 250ML 250 ML ONE (10:59)
[2018-10-05] MEDS: IRON SUCROSE 100 MG in SODIUM CHLORIDE 0.9% 100 ML 100 ML IV SCH (11:00)
--- NOTE | 2018-10-05 12:50 | NUR ---
PT WHEELED OFF UNIT VIA STRETCHER FOR EGD/COLONOSCOPY, NO CHANGE IN CONDITION
--- NOTE | 2018-10-05 15:06 | NUR ---
REPORT TO ALMITA RINCON TAKING OVER CARE OF PT
--- NOTE | 2018-10-05 15:14 | NUR ---
RECD PT FROM RECOVERY VIA STRETCHER AAOX3,DENIES PAIN ,NO DISTRESS NOTED,PT AMBULATED TO BED WITH ASSIST TOLERATED WELL.GLUCOSE 82 FROM PACU.
--- NOTE | 2018-10-05 17:15 | Progress Note ---
DATE: 10/05/2018 Cardiology Progress Note SUBJECTIVE: No major events overnight. OBJECTIVE: VITAL SIGNS: Temperature 96.5, pulse 86, respiratory rate 18, blood pressure 137/63, satting 96% on room air. GENERAL: Elderly man, well developed, well nourished, in no acute distress. CARDIOVASCULAR: Regular rate and rhythm. No murmurs, rubs, or gallops. LUNGS: Clear to auscultation bilaterally. ABDOMEN: Soft, nontender, and nondistended. NEURO/PSYCH: Alert and oriented to person, place, and time. Normal affect. INPATIENT MEDICATIONS: Reviewed. LABORATORY DATA: Reviewed. TELEMETRY: Data reviewed and shows atrial fibrillation. ASSESSMENT AND PLAN: 1. Acute anemia. 2. Precordial pain. 3. Atrial fibrillation. 4. Coronary artery disease. 5. Carotid artery disease. 6. Peripheral arterial disease, status post intervention. 7. Hypertension. 8. Hyperlipidemia. 9. Chronic systolic congestive heart failure. 10. Acute on chronic kidney disease. RECOMMENDATIONS: The patient remains on Bystolic and amlodipine. Heart rate well controlled overall. Blood pressure has improved today as well. Continue current cardiovascular medications. Thank you for this consult. We will continue to follow. MD CRISTOPHER Lozoya/NANO /[id number]
--- NOTE | 2018-10-05 17:26 | NUR ---
PT UP ON SIDE OF BED NO C/O PAIN
[2018-10-05] MEDS ORDERED: MIDAZOLAM HCL 2 MG/2 ML VIAL ONE (18:40)
[2018-10-05] MEDS ORDERED: KETAMINE HCL INJ 50 MG/ML 10 ML VIAL ONE (18:40)
--- NOTE | 2018-10-05 19:05 | NUR ---
Report received from morning nurse. Pt alert and orient to name. Pt lying in bed HOB 30 degrees. Denies pain at this time. No acute distress noted. Call luque within reach. Will continue to monitor.
[2018-10-05] MEDS ORDERED: PROPOFOL IV EMULSION 10 MG/ML 20 ML VIAL ONE (19:06)
[2018-10-05] MEDS ORDERED: IRON SUCROSE 100 MG in SODIUM CHLORIDE 0.9% 100 ML 100 ML IV SCH (20:00)
[2018-10-06] VITALS: BP 140/66
[2018-10-06 04:00] VITALS: BP 154/70
[2018-10-06] MEDS: LEVOTHYROXINE SODIUM 50 MCG TAB PO SCH (05:34)
[2018-10-06 07:30] VITALS: BP 165/72
--- NOTE | 2018-10-06 07:30 | NUR ---
PT SITTING ON SIDE OF BED NO C/O PAIN ,TELE IN PLAE NO DISTRESS NTOED.
[2018-10-06 07:57] VITALS: BP 165/72
[2018-10-06] MEDS: NEBIVOLOL 10 MG TAB PO SCH (08:22)
[2018-10-06] MEDS: PANTOPRAZOLE SOD 40 MG TABEC PO SCH (08:22)
[2018-10-06] MEDS: AMLODIPINE BESYLATE 10 MG TAB PO SCH (08:23)
--- NOTE | 2018-10-06 10:06 | NUR ---
PT DISCHARGED HOME,IV DCD WITHOUT REDNESS OR SWELLING,TRANSPORTED TO [facility] VIA W/C
== END 2018-10-06 10:06 | disposition home or self-care (01) | DRG 392 ==
LOC: ER 11:32 → ERHOLD 14:39 → MED/SURG 15:37 → MED/SURG3 10-05 15:05
PROVIDERS: ADMIT Internal Medicine; ATTEND Internal Medicine
PROC: 30233N1 Transfusion of Nonautologous Red Blood Cells into Peripheral Vein, Percutaneous Approach (ICD-10-PCS; 2018-10-02)
PROC: 0DB78ZX Excision of Stomach, Pylorus, Via Natural or Artificial Opening Endoscopic, Diagnostic (ICD-10-PCS; 2018-10-05)
PROC: 0DBM8ZX Excision of Descending Colon, Via Natural or Artificial Opening Endoscopic, Diagnostic (ICD-10-PCS; principal; 2018-10-05 13:00)
PROC: 0DBL8ZX Excision of Transverse Colon, Via Natural or Artificial Opening Endoscopic, Diagnostic (ICD-10-PCS; 2018-10-05 13:00)
PROC: 0DBP8ZX Excision of Rectum, Via Natural or Artificial Opening Endoscopic, Diagnostic (ICD-10-PCS; 2018-10-05 13:00)
PROC: 0DB98ZX Excision of Duodenum, Via Natural or Artificial Opening Endoscopic, Diagnostic (ICD-10-PCS; 2018-10-05 13:00)
DX: K31.819 Angiodysplasia of stomach and duodenum without bleeding (principal); N17.9 Acute kidney failure, unspecified; I13.0 Hypertensive heart and chronic kidney disease with heart failure and stage 1 through stage 4 chronic kidney disease, or unspecified chronic kidney disease; I50.22 Chronic systolic (congestive) heart failure; D62 Acute posthemorrhagic anemia; D50.9 Iron deficiency anemia, unspecified; K29.80 Duodenitis without bleeding; K63.5 Polyp of colon; K57.90 Diverticulosis of intestine, part unspecified, without perforation or abscess without bleeding; Z87.11 Personal history of peptic ulcer disease; I48.2 Chronic atrial fibrillation; Z79.01 Long term (current) use of anticoagulants; I25.10 Atherosclerotic heart disease of native coronary artery without angina pectoris; I73.9 Peripheral vascular disease, unspecified; E78.5 Hyperlipidemia, unspecified; J44.9 Chronic obstructive pulmonary disease, unspecified; I65.23 Occlusion and stenosis of bilateral carotid arteries; N18.9 Chronic kidney disease, unspecified; E11.22 Type 2 diabetes mellitus with diabetic chronic kidney disease; Z79.4 Long term (current) use of insulin
CPT/HCPCS: 36415; 43239; 43255; 45380; 45385; 71045; 71250; 80048; 80053; 80061; 82270; 82550; 82553; 82728; 82948; 83540; 83735; 83880; 84466; 84484; 85025; 85610; 85730; 86850; 86900; 86920; 88305; 88312; 93005; 93306; 99284; J1756; J1940; J2250; J2920; J7050; P9016

== ENCOUNTER 2019-03-22 13:48 | Inpatient (IN) | payer MEDICARE ==
[~2019-03-22] VITALS: Ht 170.2 cm; Wt 67.6 kg
[~2019-03-22 13:48] MED LIST changes: +DILTIAZEM 24HR180 MG PO; +LEVOTHYROXINE50 MCG PO
--- OUTSIDE RECORDS SUMMARY | 2019-03-22 13:52 | XMS REPORT | Summary of Care ---
Author Author CALVIN Logan, ABBI Organization Unknown Address Unknown Phone Unavailable Care Team Providers Care Fleece Tier Name Role Phone ABBI MINAYA M.D. Unavailable Unavailable JESUS HEMPHILL MD Unavailable Unavailable Abbi Minaya MD Unavailable Unavailable Unavailable Unavailable Functional Status Name Dates Details Functional status health issues are not documented Status: Name Dates Details Cognitive status health issues are not documented Status: Problems Name Dates Details Fracture of femoral neck, left (820.8, S72.002A) Status: Active Medications Name Dates Details Medications not documented Allergies and Adverse Reactions Name Dates Details Allergy history not documented Status: Procedures Procedure Dates Details Post Op Promis 29 Survey Date: 18-Nov-2018 Immunization Name Dates Details Immunizations not documented Social History Name Dates Details Unknown if ever smoked Vital Signs Date Test Result Details No Known Vitals to report Results Date Description Value Details [id number] [U] XRAY PELVIS 1 OR 2 VWS [id number] XR PELVIS 1 OR 2 VWS Images acquired, not reported on this accession number. [id number] [U] XRAY HAND MIN 3 VWS LEFT [id number] XR HAND MIN 3 VWS LEFT Images acquired, not reported on this accession number. Plan of Care Name Dates Details Planned Observations Planned Goals not documented Planned Encounters Appointment; ABBI MINAYA M.D. On: 09-Apr-2019 11:00 Interventions Provided Labs/Procedures/Imaging* [U] XRAY HAND MIN 3 VWS LEFT [id number]; Done: 08 Jan 2019 * [U] XRAY PELVIS 1 OR 2 VWS [id number]; Done: 08 Jan 2019 Instructions Name Dates Details Instructions not documented Encounters Appointment; ABBI MINAYA M.D. Encounter Diagnosis: Problem not documented On: 30-Oct-2018 8:30 Appointment; ABBI MINAYA M.D. Encounter Diagnosis: Problem not documented On: 27-Nov-2018 11:00 Appointment; ABBI MINAYA M.D. Encounter Diagnosis: Problem not documented On: 08-Jan-2019 11:00
--- OUTSIDE RECORDS SUMMARY | 2019-03-22 13:52 | XMS REPORT | Continuity of Care Document ---
Author Author [employer] Organization [facility] [employer] Information [employer] Address Unknown Phone Unavailable Care Team Providers Care Scuba Diving Instructor Name Role Phone [facility] [employer] Information [employer] Unavailable Unavailable Problems Problem Status Onset Date Classification Date Reported Comments Source Anemia Active 09/05/2015 Problem 10/06/2018 [facility] Atrial flutter Active Problem 10/06/2018 [facility] CHF Active Problem 10/06/2018 [facility] Medications Medication Details Route Status Patient Instructions Ordering Provider Order Date Source Aspirin (Aspirin Chew) 81 Mg Chew, 81 Mg Oral Daily Active 10/06/2018 [facility] Metolazone 5 Mg Tablet, 5 Mg Oral Daily Active 10/06/2018 [facility] Diltiazem Hcl Er , 240 Mg Oral Daily Active 10/02/2018 [facility] Glipizide (Glucotrol Xl*) 2.5 Mg Tab.er.24, 2.5 Mg Oral Daily Active 10/02/2018 [facility] Potassium Chloride 10 Meq Tab.er.prt, 10 Meq Oral Twice A Day Active 10/02/2018 [facility] Terazosin Hcl 1 Mg Capsule, 1 Mg Oral Daily Active 10/02/2018 [facility] Warfarin Sodium (Coumadin*) 3 Mg Tablet, 3 Mg Oral Daily Active 10/02/2018 [facility] Diltiazem Hcl (Diltiazem 24HR Er) 180 Mg Capcr Daily Active [facility] Furosemide (Lasix) 40 Mg Tablet Daily Active [facility] Levothyroxine Sodium 50 Mcg Tablet Daily@0600 Active [facility] Pravastatin Sodium 20 Mg Tablet Bedtime Active [facility] Allergies, Adverse Reactions, Alerts Substance Category Reaction Severity Reaction type Status Date Reported Comments Source Morphine SWEATING, ITCHING, INTOLERANCE Mild Allergy to Substance Active 08/04/2016 [facility] Immunizations No Data Provided for This Section Results Order Name Results Value Reference Range Date Interpretation Comments Source Capillary blood glucose measurement by glucometer (mass/volume) 99 70 - 120 10/06/2018 [facility] Blood leukocytes automated count (number/volume) 8.51 4.8 - 10.8 10/05/2018 [facility] Blood erythrocytes automated count (number/volume) 3.17 4.3 - 5.7 10/05/2018 [facility] Blood hemoglobin measurement (moles/volume) 9.3 14.0 - 18.0 10/05/2018 [facility] Automated blood hematocrit (volume fraction) 29.2 38.2 - 49.6 10/05/2018 [facility] Automated erythrocyte mean corpuscular volume 92.1 81 - 99 10/05/2018 [facility] Automated erythrocyte mean corpuscular hemoglobin (mass per erythrocyte) 29.3 28 - 32 10/05/2018 [facility] Automated erythrocyte mean corpuscular hemoglobin concentration measurement (mass/volume) 31.8 31 - 35 10/05/2018 [facility] RDW BldCo-Rto 16.1 11.7 - 14.4 10/05/2018 [facility] Automated blood platelet count (count/volume) 317 140 - 360 10/05/2018 [facility] Automated blood segmented neutrophil count as percentage of total leukocytes 69.8 38.7 - 80.0 10/05/2018 [facility] Automated blood lymphocyte count as percentage ot total leukocytes 14.6 18.0 - 39.1 10/05/2018 [facility] Automated blood monocyte count as percentage of total leukocytes 9.3 4.4 - 11.3 10/05/2018 [facility] Automated blood eosinophil count as percentage of total leukocytes 5.1 0.0 - 6.0 10/05/2018 [facility] Automated blood basophil count as percentage of total leukocytes 0.7 0.0 - 1.0 10/05/2018 [facility] IM GRANULOCYTES % 0.5 0.0 - 1.0 10/05/2018 [facility] Automated blood neutrophil count 6.0 2.1 - 6.9 10/05/2018 [facility] Blood lymphocytes count (number/volume) 1.2 1.0 - 3.2 10/05/2018 [facility] Blood monocytes automated count (number/volume) 0.8 0.2 - 0.8 10/05/2018 [facility] Automated blood eosinophil count 0.4 0.0 - 0.4 10/05/2018 [facility] Automated blood basophil count (count/volume) 0.1 0.0 - 0.1 10/05/2018 [facility] Absolute Immature Granulocyte (auto 0.04 0 - 0.1 10/05/2018 [facility] Serum or plasma sodium measurement (moles/volume) 137 136 - 145 10/04/2018 [facility] Serum or plasma potassium measurement (moles/volume) 3.7 3.5 - 5.1 10/04/2018 [facility] Serum or plasma chloride measurement (moles/volume) 109 98 - 107 10/04/2018 [facility] Serum or plasma carbon dioxide, total measurement (moles/volume) 16 22 - 29 10/04/2018 [facility] Serum or plasma anion gap 15.7 8 - 16 10/04/2018 [facility] Serum or plasma urea nitrogen measurement (mass/volume) 63 7 - 26 10/04/2018 [facility] Serum or plasma creatinine measurement (mass/volume) 2.65 0.72 - 1.25 10/04/2018 [facility] Serum or plasma urea nitrogen/creatinine mass ratio 24 6 - 25 10/04/2018 [facility] Estimated glomerular filtration rate (GFR) determination 24 60 10/04/2018 [facility] Glucose measurement 115 74 - 118 10/04/2018 [facility] Serum or plasma calcium measurement (mass/volume) 8.6 8.4 - 10.2 10/04/2018 [facility] Serum or plasma creatine kinase measurement (enzymatic activity/volume) 200 30 - 200 10/03/2018 [facility] Serum or plasma creatine kinase MB measurement (mass/volume) 10.40 0 - 5.0 10/03/2018 [facility] Troponin I measurement by highly sensitive enzyme immunoassay 0.030 0 - 0.300 10/03/2018 [facility] Stool gastrointestinal hemoglobin detection POSITIVE NEGATIVE 10/03/2018 [facility] Differential Total Cells Counted 100 10/03/2018 [facility] Manual blood neutrophils/100 leukocytes 98 40 - 74 10/03/2018 [facility] Manual blood lymphocytes/100 leukocytes 2 19 - 48 10/03/2018 [facility] Blood platelets count by estimate (number/volume) ADEQUATE 10/03/2018 [facility] Platelet morphology NORMAL 10/03/2018 [facility] RBC morphology NORMAL 10/03/2018 [facility] Serum or plasma iron measurement (mass/volume) 25 65 - 175 10/03/2018 [facility] Serum or plasma iron binding capacity measurement (mass/volume) 528 261 - 478 10/03/2018 [facility] Serum or plasma iron saturation measurement (mass fraction) 5 15 - 50 10/03/2018 [facility] Serum or plasma transferrin measurement (mass/volume) 377 174 - 364 10/03/2018 [facility] Serum or plasma ferritin measurement (mass/volume) 19.58 21.81 - 274.66 10/03/2018 [facility] Serum or plasma total bilirubin measurement (mass/volume) 1.4 0.2 - 1.2 10/03/2018 [facility] Aspartate Amino Transf (AST/SGOT) 13 5 - 34 10/03/2018 [facility] Serum or plasma alanine aminotransferase measurement (enzymatic activity/volume) 11 0 - 55 10/03/2018 [facility] Serum or plasma protein measurement (mass/volume) 7.4 6.5 - 8.1 10/03/2018 [facility] Serum or plasma albumin measurement (mass/volume) 3.4 3.5 - 5.0 10/03/2018 [facility] Plasma globulin measurement (mass/volume) 4.0 2.3 - 3.5 10/03/2018 [facility] Serum or plasma albumin/globulin mass ratio 0.9 0.8 - 2.0 10/03/2018 [facility] Serum or plasma alkaline phosphatase measurement (enzymatic activity/volume) 108 40 - 150 10/03/2018 [facility] Serum or plasma triglyceride measurement (mass/volume) 70 0 - 149 10/03/2018 [facility] Serum or plasma cholesterol measurement (mass/volume) 166 0 - 199 10/03/2018 [facility] Serum or plasma cholesterol in LDL measurement (mass/volume) 97 60 - 130 10/03/2018 [facility] Serum or plasma cholesterol in HDL measurement (mass/volume) 55 40 - 60 10/03/2018 [facility] Serum or plasma total cholesterol/cholesterol in HDL mass ratio 3.0 3.9 - 4.7 10/03/2018 [facility] BNP d[facility] 799.6 0 - 100 10/02/2018 [facility] Prothrombin time (PT) in platelet poor plasma by coagulation assay 33.0 11.9 - 14.5 10/02/2018 [facility] INR in Platelet poor plasma by Coagulation assay 2.97 10/02/2018 [facility] Activated partial thromboplastin time (aPTT) in platelet poor plasma bycoagulation assay 59.2 23.8 - 35.5 10/02/2018 [facility] Serum or plasma magnesium measurement (mass/volume) 2.3 1.3 - 2.1 10/02/2018 [facility] Pathology Reports No Data Provided for This Section Diagnostic Reports No Data Provided for This Section Consultation Notes No Data Provided for This Section Discharge Summaries No Data Provided for This Section History and Physicals No Data Provided for This Section Vital Signs No Data Provided for This Section Encounters Location Location Details Encounter Type Encounter Number Reason For Visit Attending Provider ADM Date DC Date Status Source Discharged Inpatient [id number] SABRINA ALICEA MD 10/02/2018 10/06/2018 [facility] Procedures Procedure Code Date Perfomer Comments Source EGD with biopsy [id number] 10/05/2018 [facility] Colonoscopy with biopsy [id number] 10/05/2018 [facility] Colonoscopy with polypectomy [id number] 10/05/2018 [facility] Computed tomography of chest without contrast [id number] 10/03/[address] [facility] Assessment and Plan No Data Provided for This Section Plan of Care Plan of Care Date Source Discharge Date 10/06/18 10:06am Disposition HOME, SELF-CARE Instructions/Education Provided Anemia Congestive Heart Failure Prescriptions See Medication Section Referrals TREVER EDOUARD MD (Cardiology) Order Date: 1-2 Weeks Entered Date: 10/06/2018 9:45am Address: [address] [place] [id number] VISHAL NESS MD (Gastroenterology) Order Date: 1-2 Weeks Entered Date: 10/06/2018 9:46am Address: [address] [place] [address] [id number] 10/06/2018 [facility] Social History Social History Date Source Social History Problem Response Recorded Date/Time Onset Date Status Hx Psychiatric Problems No 09/05/2015 2:05pm Not Applicable Not Applicable Hx Eating Disorder No 09/05/2015 2:05pm Not Applicable Not Applicable Hx Substance Use Disorder No 09/05/2015 2:05pm Not Applicable Not Applicable Hx Depression No 09/05/2015 2:05pm Not Applicable Not Applicable Hx Alcohol Use No 09/05/2015 2:05pm Not Applicable Not Applicable Hx Substance Use Treatment No 09/05/2015 2:05pm Not Applicable Not Applicable Hx Physical Abuse No 09/05/2015 2:05pm Not Applicable Not Applicable 10/06/2018 [facility] Family History No Data Provided for This Section Advance Directives Order Name Results Value Date Source Advance Directives Advance Directives Directive Response Recorded Date/Time Does the patient have an advance directive? No 10/02/18 3:45pm If yes, is advance directive on file with [facility]? No 09/05/15 2:05pm If not on file with [facility] will patient provide a copy? Yes 09/05/15 2:05pm Do you have a Directive to Physician? No 10/02/18 1:50pm Do you have a Medical Power of Pediatric Physician Assistant? No 10/02/18 1:50pm Do you have an out of hospital Do Not Resuscitate Order? No 10/02/18 1:50pm Do you have any special needs we should be aware of? No 10/02/18 1:50pm Do you have a support person here with you today? Yes 10/02/18 1:50pm Did patient receive Notice of Privacy Practices? Yes 10/02/18 1:50pm Did patient receive patient rights and responsibilities? Yes 10/02/18 1:50pm 10/06/2018 [facility] Functional Status No Data Provided for This Section
--- OUTSIDE RECORDS SUMMARY | 2019-03-22 13:52 | XMS REPORT | Clinical Summary ---
Author Author SARIAH [facility] Organization [facility] Address Unknown Phone Unavailable Care Team Providers Care Research Scientist Name Role Phone PCP Unavailable Allergies Not [...] Not on file Results Not on fileafter 03/21/2018 Insurance Payer Benefit Subscriber ID Type Phone Address Plan / Group [employer] - MEDICARE MGD CARE [employer] xxxxxxxx [facility] [phone] [address] [place] [address] O POS
[2019-03-22 15:05] LABS: BASOPHILS # (AUTO) 0.1 (0.0-0.1); BASOPHILS % 0.6 % (0.0-1.0); EOSINOPHILS # (AUTO) 0.2 (0.0-0.4); HEMATOCRIT 40.4 % (38.2-49.6); HEMOGLOBIN 12.7 g/dL (14.0-18.0); LYMPHOCYTES # (AUTO) 0.7 (1.0-3.2); LYMPHOCYTES % 9.2 % (18.0-39.1); MEAN CORPUSCULAR HEMOGLOBIN 31.5 pg (28-32); MEAN CORPUSCULAR HGB CONC 31.4 g/dL (31-35); MEAN CORPUSCULAR VOLUME 100.2 fL (81-99); MONOCYTES # (AUTO) 0.6 (0.2-0.8); MONOCYTES % 7.7 % (4.4-11.3); NEUTROPHILS # (AUTO) 6.4 (2.1-6.9); NEUTROPHILS % 80.1 % (38.7-80.0); PLATELET COUNT 157 x10e3/uL (140-360); RED BLOOD COUNT 4.03 x10e6/uL (4.3-5.7); RED CELL DISTRIBUTION WIDTH 14.4 % (11.7-14.4)
[2019-03-22 15:13] LABS: INR 1.31; PARTIAL THROMBOPLASTIN TIME 37.1 seconds (23.8-35.5); PROTHROMBIN TIME 16.9 seconds (11.9-14.5)
[2019-03-22 15:20] LABS: ALBUMIN 3.6 g/dL (3.5-5.0); ALBUMIN/GLOBULIN RATIO 0.9 (0.8-2.0); ANION GAP 17.2 mmol/L (8-16); CALCIUM 8.9 mg/dL (8.4-10.2); CREATININE, SERUM 5.33 mg/dL (0.72-1.25)
[2019-03-22 15:25] LABS: CREATINE KINASE MB 5.2 ng/mL (0-5.0)
[2019-03-22 15:27] LABS: POTASSIUM 5.2 mmol/L (3.5-5.1)
--- NOTE | 2019-03-22 15:41 | Diagnostic Imaging Report ---
EXAMINATION: CHEST SINGLE (PORTABLE) INDICATION: Weakness COMPARISON: Chest radiograph of 10/02/2018, chest CT of 10/03/2018 FINDINGS: LINES/TUBES:Interval placement of left chest pacer. EKG leads overlie the chest. LUNGS/PLEURA:The lung volumes are low. Mild apical pleural parenchyma thickening/scarring. Patchy opacity at the peripheral left lung base. Overlying well circumscribed lucency along the left lateral pleura. No pleural effusion. No pneumothorax. MEDIASTINUM:The cardiomediastinal silhouette appears normal in size and shape. Atherosclerotic calcifications of the thoracic aorta. BONES/SOFT TISSUES:No acute osseous injury. Possible small amount of subcutaneous emphysema at the left chest wall. ABDOMEN:No free air under the diaphragm. IMPRESSION: Left lateral basilar patchy opacity, possible subsegmental atelectasis versus aspiration or pneumonia. Interval left chest pacemaker placement. Possible subcutaneous emphysema along the left chest wall and circumscribed lucency overlying the left lateral costophrenic angle could be postprocedural if the procedure was very recent. Please correlate with procedural history. RECOMMENDATIONS: If the patient is not in the immediate postoperative period from left chest pacer placement, recommend chest CT for further evaluation. Signed by: Boyd Wilhelm MD on 03/22/2019 3:38 PM
[2019-03-22] MEDS ORDERED: SODIUM CHLORIDE 0.9% 500ML 500 ML IV ONE (15:45)
[2019-03-22] MEDS ORDERED: VANCOMYCIN 1GM/NS 250 ML 250 ML IV ONE (16:00)
[2019-03-22 16:15] LABS: ABG HCO3 7 mmol/L (23-28); ABG PCO2 22 mmHg (41-51); ABG PH 7.11 (7.31-7.41); ABG PO2 140 mmHg (80-105)
--- NOTE | 2019-03-22 16:38 | NUR ---
Bladder scan performed at bedside, noted to have approx 40 cc.
[2019-03-22] MEDS ORDERED: SODIUM CHLORIDE 0.9% 1000ML 1,000 ML IV SCH (16:47)
[2019-03-22] MEDS: CEFEPIME 1GM/NS 0.9% 50 ML 50 ML IV SCH (16:50)
[2019-03-22 16:55] LABS: BILIRUBIN,URINE SMALL (NEGATIVE); CLARITY,URINE CLOUDY (CLEAR); COLOR,URINE YELLOW (YELLOW); KETONES,URINE NEGATIVE (NEGATIVE); LEUKOCYTE ESTERASE ,URINE NEGATIVE (NEGATIVE); NITRITE,URINE NEGATIVE (NEGATIVE); PROTEIN,URINE DIPSTICK 2+ (NEGATIVE); URINE UROBILINOGEN 0.2 mg/dL (0.2 - 1)
[2019-03-22] MEDS ORDERED: SODIUM CHLORIDE 0.9% 1000ML 1,000 ML IV ONE ×2 (16:56→19:30)
[2019-03-22] MEDS ORDERED: SODIUM BICARBONATE 8.4% 50 ML VIAL IV ONE (16:56)
[2019-03-22] MEDS ORDERED: SODIUM BICARBONATE 8.4% INJ 50 ML SYR IV ONE (17:15)
[2019-03-22 17:17] LABS: AMORPHOUS SEDIMENT,URINE MODERATE (FEW); BACTERIA,URINE FEW /HPF; EPITHELIAL CELLS,URINE FEW /LPF; RBC,URINE 0-5 /HPF (0-5)
[2019-03-22] MEDS: SODIUM BICARBONATE 8.4% SYRING 150 ML in DEXTROSE 5% 1,000 ML IV SCH (17:52)
--- OUTSIDE RECORDS SUMMARY | 2019-03-22 18:01 | XMS REPORT | Continuity of Care Document ---
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 Phone [facility] Information Exchange Unavailable Unavailable Problems Problem Status Onset Date Classification Date Reported Comments Source Anemia Active 09/05/2015 Problem 10/06/2018 [facility] Atrial flutter Active Problem 10/06/2018 [facility] CHF Active Problem 10/06/2018 [facility] Medications Medication Details Route Status Patient Instructions Ordering Provider Order Date Source Aspirin (Aspirin Chew) 81 Mg Chew, 81 Mg Oral Daily Active 10/06/2018 [facility] Metolazone 5 Mg Tablet, 5 Mg Oral Daily Active 10/06/2018 [facility] Diltiazem Hcl Er , 240 Mg Oral Daily Active 10/02/2018 [facility] Glipizide (Glucotrol Xl*) 2.5 Mg Tab.er.24, 2.5 Mg Oral Daily Active 10/02/2018 [facility] Potassium Chloride 10 Meq Tab.er.prt, 10 Meq Oral Twice A Day Active 10/02/2018 [facility] Terazosin Hcl 1 Mg Capsule, 1 Mg Oral Daily Active 10/02/2018 [facility] Warfarin Sodium (Coumadin*) 3 Mg Tablet, 3 Mg Oral Daily Active 10/02/2018 [facility] Diltiazem Hcl (Diltiazem 24HR Er) 180 Mg Capcr Daily Active [facility] Furosemide (Lasix) 40 Mg Tablet Daily Active [facility] Levothyroxine Sodium 50 Mcg Tablet Daily@0600 Active [facility] Pravastatin Sodium 20 Mg Tablet Bedtime Active [facility] Allergies, Adverse Reactions, Alerts Substance Category Reaction Severity Reaction type Status Date Reported Comments Source Morphine SWEATING, ITCHING, INTOLERANCE Mild Allergy to Substance Active 08/04/2016 [facility] Immunizations No Data Provided for This Section Results Order Name Results Value Reference Range Date Interpretation Comments Source Capillary blood glucose measurement by glucometer (mass/volume) 99 70 - 120 10/06/2018 [facility] Blood leukocytes automated count (number/volume) 8.51 4.8 - 10.8 10/05/2018 [facility] Blood erythrocytes automated count (number/volume) 3.17 4.3 - 5.7 10/05/2018 [facility] Blood hemoglobin measurement (moles/volume) 9.3 14.0 - 18.0 10/05/2018 [facility] Automated blood hematocrit (volume fraction) 29.2 38.2 - 49.6 10/05/2018 [facility] Automated erythrocyte mean corpuscular volume 92.1 81 - 99 10/05/2018 [facility] Automated erythrocyte mean corpuscular hemoglobin (mass per erythrocyte) 29.3 28 - 32 10/05/2018 [facility] Automated erythrocyte mean corpuscular hemoglobin concentration measurement (mass/volume) 31.8 31 - 35 10/05/2018 [facility] RDW BldCo-Rto 16.1 11.7 - 14.4 10/05/2018 [facility] Automated blood platelet count (count/volume) 317 140 - 360 10/05/2018 [facility] Automated blood segmented neutrophil count as percentage of total leukocytes 69.8 38.7 - 80.0 10/05/2018 [facility] Automated blood lymphocyte count as percentage ot total leukocytes 14.6 18.0 - 39.1 10/05/2018 [facility] Automated blood monocyte count as percentage of total leukocytes 9.3 4.4 - 11.3 10/05/2018 [facility] Automated blood eosinophil count as percentage of total leukocytes 5.1 0.0 - 6.0 10/05/2018 [facility] Automated blood basophil count as percentage of total leukocytes 0.7 0.0 - 1.0 10/05/2018 [facility] IM GRANULOCYTES % 0.5 0.0 - 1.0 10/05/2018 [facility] Automated blood neutrophil count 6.0 2.1 - 6.9 10/05/2018 [facility] Blood lymphocytes count (number/volume) 1.2 1.0 - 3.2 10/05/2018 [facility] Blood monocytes automated count (number/volume) 0.8 0.2 - 0.8 10/05/2018 [facility] Automated blood eosinophil count 0.4 0.0 - 0.4 10/05/2018 [facility] Automated blood basophil count (count/volume) 0.1 0.0 - 0.1 10/05/2018 [facility] Absolute Immature Granulocyte (auto 0.04 0 - 0.1 10/05/2018 [facility] Serum or plasma sodium measurement (moles/volume) 137 136 - 145 10/04/2018 [facility] Serum or plasma potassium measurement (moles/volume) 3.7 3.5 - 5.1 10/04/2018 [facility] Serum or plasma chloride measurement (moles/volume) 109 98 - 107 10/04/2018 [facility] Serum or plasma carbon dioxide, total measurement (moles/volume) 16 22 - 29 10/04/2018 [facility] Serum or plasma anion gap 15.7 8 - 16 10/04/2018 [facility] Serum or plasma urea nitrogen measurement (mass/volume) 63 7 - 26 10/04/2018 [facility] Serum or plasma creatinine measurement (mass/volume) 2.65 0.72 - 1.25 10/04/2018 [facility] Serum or plasma urea nitrogen/creatinine mass ratio 24 6 - 25 10/04/2018 [facility] Estimated glomerular filtration rate (GFR) determination 24 60 10/04/2018 [facility] Glucose measurement 115 74 - 118 10/04/2018 [facility] Serum or plasma calcium measurement (mass/volume) 8.6 8.4 - 10.2 10/04/2018 [facility] Serum or plasma creatine kinase measurement (enzymatic activity/volume) 200 30 - 200 10/03/2018 [facility] Serum or plasma creatine kinase MB measurement (mass/volume) 10.40 0 - 5.0 10/03/2018 [facility] Troponin I measurement by highly sensitive enzyme immunoassay 0.030 0 - 0.300 10/03/2018 [facility] Stool gastrointestinal hemoglobin detection POSITIVE NEGATIVE 10/03/2018 [facility] Differential Total Cells Counted 100 10/03/2018 [facility] Manual blood neutrophils/100 leukocytes 98 40 - 74 10/03/2018 [facility] Manual blood lymphocytes/100 leukocytes 2 19 - 48 10/03/2018 [facility] Blood platelets count by estimate (number/volume) ADEQUATE 10/03/2018 [facility] Platelet morphology NORMAL 10/03/2018 [facility] RBC morphology NORMAL 10/03/2018 [facility] Serum or plasma iron measurement (mass/volume) 25 65 - 175 10/03/2018 [facility] Serum or plasma iron binding capacity measurement (mass/volume) 528 261 - 478 10/03/2018 [facility] Serum or plasma iron saturation measurement (mass fraction) 5 15 - 50 10/03/2018 [facility] Serum or plasma transferrin measurement (mass/volume) 377 174 - 364 10/03/2018 [facility] Serum or plasma ferritin measurement (mass/volume) 19.58 21.81 - 274.66 10/03/2018 [facility] Serum or plasma total bilirubin measurement (mass/volume) 1.4 0.2 - 1.2 10/03/2018 [facility] Aspartate Amino Transf (AST/SGOT) 13 5 - 34 10/03/2018 [facility] Serum or plasma alanine aminotransferase measurement (enzymatic activity/volume) 11 0 - 55 10/03/2018 [facility] Serum or plasma protein measurement (mass/volume) 7.4 6.5 - 8.1 10/03/2018 [facility] Serum or plasma albumin measurement (mass/volume) 3.4 3.5 - 5.0 10/03/2018 [facility] Plasma globulin measurement (mass/volume) 4.0 2.3 - 3.5 10/03/2018 [facility] Serum or plasma albumin/globulin mass ratio 0.9 0.8 - 2.0 10/03/2018 [facility] Serum or plasma alkaline phosphatase measurement (enzymatic activity/volume) 108 40 - 150 10/03/2018 [facility] Serum or plasma triglyceride measurement (mass/volume) 70 0 - 149 10/03/2018 [facility] Serum or plasma cholesterol measurement (mass/volume) 166 0 - 199 10/03/2018 [facility] Serum or plasma cholesterol in LDL measurement (mass/volume) 97 60 - 130 10/03/2018 [facility] Serum or plasma cholesterol in HDL measurement (mass/volume) 55 40 - 60 10/03/2018 [facility] Serum or plasma total cholesterol/cholesterol in HDL mass ratio 3.0 3.9 - 4.7 10/03/2018 [facility] BNP d-[facility] 799.6 0 - 100 10/02/2018 [facility] Prothrombin time (PT) in platelet poor plasma by coagulation assay 33.0 11.9 - 14.5 10/02/2018 [facility] INR in Platelet poor plasma by Coagulation assay 2.97 10/02/2018 [facility] Activated partial thromboplastin time (aPTT) in platelet poor plasma bycoagulation assay 59.2 23.8 - 35.5 10/02/2018 [facility] Serum or plasma magnesium measurement (mass/volume) 2.3 1.3 - 2.1 10/02/2018 [facility] Pathology Reports No Data Provided for This [...] Date DC Date Status Source Discharged Inpatient [id number] SABRINA ALICEA MD 10/02/2018 10/06/2018 [facility] Procedures Procedure Code Date Perfomer Comments Source EGD with biopsy [id number] 10/05/2018 [facility] Colonoscopy with biopsy [id number] 10/05/2018 [facility] Colonoscopy with polypectomy [id number] 10/05/2018 [facility] Computed tomography of chest without contrast [id number] 10/03/2018 [facility] Assessment and Plan No Data Provided for This Section Plan of Care Plan of Care Date Source Discharge Date 10/06/18 10:06am Disposition HOME, SELF-CARE Instructions/Education Provided Anemia Congestive Heart Failure Prescriptions See Medication Section Referrals TREVER EDOUARD MD (Cardiology) Order Date: 1-2 Weeks Entered Date: 10/06/2018 9:45am Address: [address] [place] [id number] VISHAL NESS MD (Gastroenterology) Order Date: 1-2 Weeks Entered Date: 10/06/2018 9:46am Address: [address] [place] [address] [id number] 10/06/2018 [facility] Social History Social History Date Source Social [...] 09/05/2015 2:05pm Not Applicable Not Applicable 10/06/2018 [facility] Family History No Data Provided for This Section Advance Directives Order Name Results Value Date Source Advance Directives Advance Directives Directive Response Recorded Date/Time Does the patient have an advance directive? No 10/02/18 3:45pm If yes, is advance directive on file with [facility]? No 09/05/15 2:05pm If not on file with [facility] will patient provide a copy? Yes 09/05/15 2:05pm Do you have a Directive to Physician? No 10/02/18 1:50pm Do you have a Medical Power of [place]? No 10/02/18 1:50pm Do you have an [...] rights and responsibilities? Yes 10/02/18 1:50pm 10/06/2018 [facility] Functional Status No Data Provided for This Section
--- OUTSIDE RECORDS SUMMARY | 2019-03-22 18:01 | XMS REPORT | Clinical Summary ---
Author Author [facility] Organization [facility] Address Unknown Phone Unavailable Care Team Providers Care Associate [employer] Name Role Phone PCP Unavailable Allergies Not [...] AETNA - MEDICARE MGD CARE [employer] xxxxxxxx [place] [phone] [id number] [place] [address] O POS
--- NOTE | 2019-03-22 18:20 | NUR ---
Pt noted to be expressing "trouble breathing", Pt noted to be anxious and working self up, c/o itching, stopped Vancomycin at this time; informed Dr. Posada.
--- NOTE | 2019-03-22 18:50 | NUR ---
Pt noted to have large BM with dark tarry stool of foul odor, additionally noted to have drop in blood pressure, 73/47 RUE and 77/40 LUE; Infored Dr. Posada, received orders for 1000 mL NS Bolus at this time.
[2019-03-22] MEDS: ALBUTEROL/IPRATROPIUM 3 ML NEB NEB SCH (19:00)
[2019-03-22 19:01] LABS: FOLATE 17.7 ng/mL (7.0-15.4)
[2019-03-22] MEDS ORDERED: SODIUM CHLORIDE 0.9% 1000ML 1,000 ML ONE (19:10)
[2019-03-22 19:25] LABS: OCCULT BLOOD STOOL POSITIVE (NEGATIVE)
[2019-03-22 19:34] LABS: FREE THYROXINE INDEX 1.782 (1.4-3.8); THYROID STIMULATING HORMONE 2.518 uIU/mL (0.350-4.940)
--- NOTE | 2019-03-22 20:10 | NUR ---
Bedside report completed with night auditor nurse, updated on current Pt status and plan of care for continuity of care.
[2019-03-22] MEDS: AZITHROMYCIN 500MG/NS 250 ML 250 ML IV SCH (20:12)
[2019-03-22 20:15] VITALS: BP 85/42
--- NOTE | 2019-03-22 20:16 | Diagnostic Imaging Report ---
EXAM: CT Chest WITHOUT contrast 03/22/2019 3:43 PM INDICATION: ^? INFILTRATE LEFT BASE ^[id number] ^[id number] COMPARISON: Chest CT, 10/03/2018 TECHNIQUE: Chest was scanned utilizing a multidetector helical scanner from the lung apex through the level of the adrenal glands without administration of IV contrast. Absence of intravenous contrast decreases sensitivity for detection of lymphadenopathy and vascular pathology. Coronal and sagittal reformations were obtained. Routine protocol was performed. Dose modulation, iterative reconstruction, and/or weight based adjustment of the mA/kV was utilized to reduce the radiation dose to as low as reasonably achievable. IV CONTRAST: None RADIATION DOSE: Total DLP: 514.51 mGy*cm Estimated effective dose: (DLP x 0.014 x size factor) mSv COMPLICATIONS: None FINDINGS: LINES/ TUBES: Implanted cardiac device on the left with transvenous leads extending to the right atrium, right ventricle and coronary sinus. LUNGS AND AIRWAYS: There is patchy subpleural airspace opacity at the right lung base. There is mild linear atelectasis at the left lung base. Trachea and main bronchi are clear. There is bilateral perihilar bronchial wall thickening noted. PLEURA: No pleural effusion or pneumothorax. HEART AND MEDIASTINUM: The thyroid gland is normal. No mediastinal, hilar or axillary lymphadenopathy. The heart is normal in size.. There is no pericardial effusion. The thoracic aorta is atherosclerotic with extensive calcified plaque. Calcifications are also seen in the aortic valve and there are extensive calcifications in the coronary arteries. There are calcifications in the mitral annulus. UPPER ABDOMEN: Included portions of the unenhanced liver, spleen, pancreas and adrenals unremarkable. BONES: No acute or suspicious bony lesions. There are degenerative changes in the thoracic spine. SOFT TISSUES: Superficial surrounding soft tissue unremarkable. IMPRESSION: There is minimal patchy airspace opacity at the right lung base. This may be due to atelectasis or minimal/early pneumonia. Findings are slightly more prominent than on the previous CT. Since last exam pleural effusions have resolved. Signed by: Dr. Raymond Mazariegos M.D. on 03/22/2019 8:13 PM
[2019-03-22 20:55] VITALS: BP 79/60
[2019-03-22 21:18] VITALS: BP 92/47
[2019-03-22 21:45] VITALS: BP 80/46
[2019-03-22] MEDS: THIAMINE HCL 100 MG TAB PO SCH (22:41)
[2019-03-22] MEDS: PRAVASTATIN 20 MG TAB PO SCH (22:41)
[2019-03-22 23:00] VITALS: BP 81/60
[2019-03-22 23:59] VITALS: BP 92/47
[2019-03-23] VITALS (28 sets, daily range): BP systolic 73–118; BP diastolic 38–77
[2019-03-23 00:08] LABS: CREATINE KINASE MB 7.6 ng/mL (0-5.0)
[2019-03-23] MEDS: METRONIDAZOLE 500MG/NS 100ML 100 ML IV SCH ×4 (00:15→20:42)
--- NOTE | 2019-03-23 01:05 | NUR ---
Patient refused Bipap. Patient refused Moore catheter. Explained to patient that he is on strict I&O'S. Patient still refused
[2019-03-23] MEDS: ALBUTEROL/IPRATROPIUM 3 ML NEB NEB SCH ×4 (01:18→19:30)
--- NOTE | 2019-03-23 02:05 | Consultation ---
DATE OF CONSULTATION: Pulmonary Consultation The patient of Dr. Franco, Dr. Birch, Dr. Dominguez, and Dr. Arcos. HISTORY OF PRESENT ILLNESS: Charming, but unfortunate 73-year-old gentleman admitted from a grocery store, the fellow customers insisted that he go to the hospital because of severe weakness. He has had a history of NJ in the past and cardiomyopathy, renal failure in the past requiring life support for two weeks at the time of his NJ. He has diarrhea. He denies dietary indiscretion. He cooks for himself. Lives alone. Pacemaker was implanted some two months ago. ALLERGIES: HE IS ALLERGIC TO MORPHINE, WHICH MAKES HIM ITCH. MEDICATIONS: Have included Xarelto, Entresto, Synthroid, Cardizem, and Pravachol. He has a history of atrial fibrillation, sick sinus syndrome, diverticular disease, AVMs in the past. He had a hip fracture, required pacemaker before the hemiarthroplasty at [facility]. He has had knee replacement, tendon repair. 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 He was born in [place]. 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 SOCIAL HISTORY: Smoked a pack a day for 40 years. Drinks 3-4 times a week, 4-5 drinks of vodka. Smoked for 25 years. PHYSICAL EXAMINATION: GENERAL: He is a well-developed jovial white male, in no acute distress. VITAL SIGNS: Temperature 97.6, pulse 80, respirations 27, blood pressure 92/40 on admission. Head: Normocephalic, atraumatic. Pacemaker in left chest. LUNGS: Few rhonchi. HEART: Regular rhythm, paced. ABDOMEN: Nontender. EXTREMITIES: Nonedematous. IMPRESSION: 1. Dehydration, severe metabolic acidosis, azotemia. Baseline creatinine seems to be 2.4, currently 5.33. 2. Diarrhea, the inciting event. The patient also has a history of obstructive sleep apnea, history of AVMs and diverticular disease, colon polyps. We will resume BiPAP at night ICU care, central line if needed. Avoid PICC line in view of this renal failure. The patient requests full measures at this time. Empiric antibiotics to cover intestinal organs. CT of the chest to evaluate lucency in the left chest, left base. Thank you for this kind referral. MD LEIGHTON Carroll/NANO /[id number]
[2019-03-23] MEDS ORDERED: LIDOCAINE HCL 2% JELLY 5 ML TUBE TOP ONE (03:00)
[2019-03-23] MEDS ORDERED: HYDROMORPHONE 1MG/1ML INJ IV PRN (03:00)
[2019-03-23] MEDS: CEFEPIME 1GM/NS 0.9% 50 ML 50 ML IV SCH ×2 (03:49→20:15)
[2019-03-23 04:40] LABS: BASOPHILS % 0.2 % (0.0-1.0); EOSINOPHILS % 0.2 % (0.0-6.0); HEMATOCRIT 35.2 % (38.2-49.6); HEMOGLOBIN 11.3 g/dL (14.0-18.0); LYMPHOCYTES # (AUTO) 0.3 (1.0-3.2); MEAN CORPUSCULAR HEMOGLOBIN 31.6 pg (28-32); MEAN CORPUSCULAR HGB CONC 32.1 g/dL (31-35); MEAN CORPUSCULAR VOLUME 98.3 fL (81-99); MONOCYTES # (AUTO) 0.9 (0.2-0.8); MONOCYTES % 6.1 % (4.4-11.3); NEUTROPHILS # (AUTO) 12.9 (2.1-6.9); NEUTROPHILS % 91.1 % (38.7-80.0); PLATELET COUNT 112 x10e3/uL (140-360); RED BLOOD COUNT 3.58 x10e6/uL (4.3-5.7); RED CELL DISTRIBUTION WIDTH 14.3 % (11.7-14.4)
[2019-03-23 04:53] LABS: INR 1.17; PROTHROMBIN TIME 15.5 seconds (11.9-14.5)
[2019-03-23 04:54] LABS: PARTIAL THROMBOPLASTIN TIME 34.3 seconds (23.8-35.5)
[2019-03-23] MEDS: LEVOTHYROXINE SODIUM 25 MCG TABLET PO SCH (05:21)
[2019-03-23 05:35] LABS: ALBUMIN 2.6 g/dL (3.5-5.0); ANION GAP 14.9 mmol/L (8-16); CALCIUM 7.8 mg/dL (8.4-10.2); CREATININE, SERUM 4.96 mg/dL (0.72-1.25); POTASSIUM 3.9 mmol/L (3.5-5.1)
[2019-03-23] MEDS ORDERED: LEVOTHYROXINE SODIUM 50 MCG TAB PO SCH (06:00)
[2019-03-23] MEDS ORDERED: VASOPRESSIN 100 UNIT in DEXTROSE 5% 100ML 100 ML IV PRN (06:45)
[2019-03-23] MEDS ORDERED: SODIUM CHLORIDE 0.9% 500ML 500 ML IV ONE (07:00)
--- NOTE | 2019-03-23 07:27 | Diagnostic Imaging Report ---
A single frontal view of the chest. HISTORY: Shortness of breath COMPARISON: Chest radiograph March 22, 2019, CT of the chest March 22, 2019. DISCUSSION: Portable technique, limits sensitivity of the exam. Soft tissue attenuation partially limits sensitivity of the exam. Multiple overlying monitoring leads. Tubes/Lines: Unchanged appearance of the left-sided implanted cardiac device. Lungs and pleura: Low lung volumes result in bibasilar vascular crowding, accentuation of the pulmonary interstitial markings, central pulmonary vasculature, and the cardiac silhouette. Allowing for these limitations, the findings are as follows: Diffusely increased mild patchy interstitial and airspace opacities. No definite pleural effusion or pneumothorax is identified. Heart and mediastinum: The cardiomediastinal silhouette is partially obscured. Bones and soft tissues: Appear unremarkable, given this limited exam. IMPRESSION: Diffuse bilateral interstitial and airspace opacities, consider mild pulmonary edema versus atypical infection in the appropriate setting. Signed by: Dr. Abrahan Barillas D.O., M.M.M. on 03/23/2019 7:24 AM
[2019-03-23 07:44] LABS: BAND NEUTROPHILS % (MANUAL) 9 %; LYMPHOCYTES % (MANUAL) 3 % (19-48); MONOCYTES % (MANUAL) 9 % (3.4-9.0); NEUTROPHILS % (MANUAL) 79 % (40-74)
[2019-03-23 07:45] LABS: ANISOCYTOSIS SLIGHT; PLATELET ESTIMATE SLIGHTLY DECREASED; PLATELET MORPHOLOGY COMMENT NORMAL; POIKILOCYTOSIS SLIGHT; RBC MORPHOLOGY COMMENT NORMAL
[2019-03-23] MEDS: AZITHROMYCIN 500MG/NS 250 ML 250 ML IV SCH (09:00)
[2019-03-23] MEDS: THIAMINE HCL 100 MG TAB PO SCH (09:46)
[2019-03-23] MEDS ORDERED: IOPAMIDOL 300 MG/ML 15ML VIAL IT ONE (11:04)
[2019-03-23] MEDS: SODIUM BICARBONATE 8.4% SYRING 150 ML in DEXTROSE 5% 1,000 ML IV SCH ×2 (11:30→16:00)
[2019-03-23 12:00] LABS: C DIFFICILE TOXIN A&B AMP PROB NEGATIVE (NEGATIVE)
--- NOTE | 2019-03-23 12:06 | Diagnostic Imaging Report ---
EXAM: Renal Ultrasound INDICATION: ^decreased urine output potential for blockage COMPARISON: None TECHNIQUE: Transverse and longitudinal images of the kidneys and bladder were obtained. FINDINGS: Right Kidney: Length: 8.9 cm Appearance: Normal echogenicity. Collecting system: No hydronephrosis Stones: None Cyst/Mass: None Left Kidney: Length: 9.7 cm Appearance: Normal echogenicity. Collecting system: No hydronephrosis Stones: None Cyst/Mass: None Bladder: Moore catheter terminates in the bladder. IMPRESSION: No renal calculi or hydronephrosis. Signed by: Boyd Wilhelm MD on 03/23/2019 12:03 PM
[2019-03-23 12:38] LABS: CREATINE KINASE MB 8.8 ng/mL (0-5.0)
[2019-03-23] MEDS ORDERED: BUMETANIDE INJ 0.25MG/ML 4ML VIAL IV ONE (12:40)
--- NOTE | 2019-03-23 14:57 | Diagnostic Imaging Report ---
PROCEDURE: Non-tunneled central venous catheter placement Procedural Personnel Attending physician(s): Boyd Wilhelm MD Fellow physician(s): None Resident physician(s): None Advanced practice provider(s): None Pre-procedure diagnosis: Acute kidney injury Post-procedure diagnosis: Same Indication: Performance of hemodialysis Additional clinical history: None Complications: No immediate complications. IMPRESSION: Insertion of right-sided non-tunneled triple-lumen temporary trialysis catheter, with tip in the expected location of the superior vena cava. Plan: The catheter may be used immediately. PROCEDURE SUMMARY: - Venous access with ultrasound guidance - Non-tunneled central venous catheter insertion with fluoroscopic guidance - Additional procedure(s): None PROCEDURE DETAILS: Pre-procedure Consent: Informed consent for the procedure including risks, benefits and alternatives was obtained and time-out was performed prior to the procedure. Preparation (MIPS): The site was prepared and draped using all elements of maximal sterile barrier technique including sterile gloves, sterile gown, cap, mask, large sterile sheet, sterile ultrasound probe cover, hand hygiene and cutaneous antisepsis with 2% chlorhexidine. Medical reason for site preparation exception (MIPS): Not applicable Anesthesia/sedation Level of anesthesia/sedation: No sedation Anesthesia/sedation administered by: Independent trained observer under attending supervision with continuous monitoring of the patient?s level of consciousness and physiologic status Access Local anesthesia was administered. The vessel was sonographically evaluated and determined to be patent. Real time ultrasound was used to visualize needle entry into the vessel and a permanent image was stored. Vein accessed: Internal jugular vein Access technique: Micropuncture set with 21 gauge needle Venography Indication for venography: Difficulty advancing wire. Vein catheterized: Right internal jugular Findings: Stenosis and tortuosity of right innominate vein, then successfully crossed. Catheter placement The access site was dilated and the catheter was placed into the vein over a wire under fluoroscopic guidance. The catheter tip location was fluoroscopically verified and a permanent image was stored.. A sterile dressing was applied. Catheter placed: Bard Trialysis Catheter size ([place]): 13 Catheter length (cm): 15 Catheter flush: Normal saline Catheter securement technique: Non-absorbable suture Contrast Contrast agent: Isovue 300 Contrast volume (mL): 10 Radiation Dose Fluoroscopy time (minutes): 2.6 Reference air kerma (mGy): 28.9 Additional Details Additional description of procedure: None Equipment details: None Specimens removed: None Estimated blood loss (mL): Less than 10 Standardized report: [email or web address] Attestation Signer name: Boyd Wilhelm MD I attest that I was present for the entire procedure. I reviewed the stored images and agree with the report as written. Signed by: Boyd Wilhelm MD on 03/23/2019 2:54 PM
[2019-03-23] MEDS ORDERED: HEPARIN SOD (PORCINE) 1000 UNIT/ML SDV ONE (15:46)
[2019-03-23] MEDS ORDERED: SODIUM CHLORIDE 0.9% 1000ML 1,000 ML ONE (15:46)
--- NOTE | 2019-03-23 15:50 | Diagnostic Imaging Report ---
PROCEDURE: Aborted non-tunneled trialysis catheter placement Procedural Personnel Attending physician(s): Boyd Wilhelm MD Fellow physician(s): None Resident physician(s): None Advanced practice provider(s): None Pre-procedure diagnosis: Acute kidney injury Post-procedure diagnosis: Same Indication: Performance of hemodialysis Additional clinical history: None IMPRESSION: Aborted non-tunneled trialysis catheter placement. Resistance was encountered passing the wire beyond the internal jugular vein under sonographic guidance after successful venous access. This could represent central venous stenosis or resistance against known pacemaker leads. Plan: Re-attempt placement in radiology department under sonographic and fluoroscopic guidance with possible venogram. PROCEDURE SUMMARY: - Venous access with ultrasound guidance - Aborted central venous catheter insertion PROCEDURE DETAILS: Pre-procedure Consent: Informed consent for the procedure including risks, benefits and alternatives was obtained and time-out was performed prior to the procedure. Preparation (MIPS): The site was prepared and draped using all elements of maximal sterile barrier technique including sterile gloves, sterile gown, cap, mask, large sterile sheet, sterile ultrasound probe cover, hand hygiene and cutaneous antisepsis with 2% chlorhexidine. Medical reason for site preparation exception (MIPS): Not applicable Anesthesia/sedation Level of anesthesia/sedation: 1% local lidocaine. Access Local anesthesia was administered. The vessel was sonographically evaluated and determined to be patent. Real time ultrasound was used to visualize needle entry into the vessel and a permanent image was stored. Vein accessed: Internal jugular vein Access technique: Micropuncture set with 21 gauge needle Catheter placement Resistance was encountered passing the wire beyond the internal jugular vein under sonographic guidance after successful venous access. This could represent central venous stenosis or resistance against known pacemaker leads. Additional Details Additional description of procedure: None Equipment details: None Specimens removed: None Estimated blood loss (mL): Less than 10 Standardized report: [id number] Attestation Signer name: Boyd Wilhelm MD I attest that I was present for the entire procedure. I reviewed the stored images and agree with the report as written. Signed by: Boyd Wilhelm MD on 03/23/2019 3:47 PM
[2019-03-23] MEDS ORDERED: BUMETANIDE INJ 0.25MG/ML 4ML VIAL ONE (17:36)
--- NOTE | 2019-03-23 19:52 | Consultation ---
DATE OF CONSULTATION: 03/23/2019 HISTORY OF PRESENT ILLNESS: Mr. Roger Alcala is a 73-year-old gentleman, who presented to the emergency room with two weeks history of diarrhea, became quite weak and was subsequently brought here to the emergency room, where he was found to be aneuric with acute kidney injury, serum creatinine 4.9 with a BUN 67. Initial bicarb 8 and potassium was elevated at 5.2. The patient was treated with Kayexalate and IV fluids. He also found to be acidotic and a normal white count with no fever was given empiric antibiotics. There was suspicion of pneumonia on initial chest x-ray. Workup also included a CT of the chest, please see official report. Overnight, the patient refused Moore catheter, subsequently agreed after I spoke to him and thereafter. Once the Moore was placed, there was no urine output. Bladder scan showed empty urinary bladder. His potassium responded well to the measures taken. He is currently awake, alert, and oriented x3. No apparent distress. Has had prior history of cardiac arrest, IA, kidney failure, three years ago, was on dialysis temporarily for a month, went [facility], and was taken off dialysis. He stop seeing Nephrology last three years. Sees Dr. Kaylen Franco as an outpatient. 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 Has four stents in the heart as well as a pacemaker. Has a history of congestive heart failure, hypertension. States he had diabetes, but since he lost 7 pounds, he is not taking anything for diabetes. LABORATORY DATA: Most recent lab show potassium 3.9, bicarbonate 12, BUN 67, creatinine 4.96. Troponin I is 0.023. SOCIAL HISTORY: Patient lives by himself. Drinks vodka every day. Does not smoke. Does not own groceries, takes care of himself. Since arrival, his white count has gone up. His cultures have been sent, which are pending. Had initial urinalysis shows specific gravity of 1.030 with rbc 0-5, wbc none. ALLERGIES: TO MORPHINE. CURRENT MEDICATIONS: The patient is on pravastatin 20 mg at bedtime. He is on IV bicarbonate drip at 100 mL an hour, thiamine 50 mg daily. He received a dose of vancomycin, received normal saline bolus earlier, started on cefepime 1 g IV q.12h, azithromycin 500 mg IV piggyback daily, metronidazole for suspicion of possible C diff. C diff test has been negative. PHYSICAL EXAMINATION: VITAL SIGNS: He is currently in no apparent respiratory distress with a blood pressure of 94/48, pulse rate 78, afebrile, respiratory rate 17. HEAD AND NECK: Shows dry mucosa. No icterus. Neck veins not distended. LUNGS: Rales noted right base more than the left. HEART: S1, S2 audible. ABDOMEN: Soft, nontender. No apparent visceromegaly. Flanks full. EXTREMITIES: Lower extremity, no edema. IMPRESSION AND PLAN: Acute kidney injury, possibly ATN with a history of prior chronic kidney disease and ATN in the past, right kidney 8.9 cm, left kidney 9.7. No calculi or hydronephrosis. Hyperkalemia, resolved. Metabolic acidosis presume sepsis. Dialysis catheter is to be placed today and then subsequent dialysis will attempt to diurese. We may be dealing with bilateral atelectasis versus congestive heart failure. We will obtain a stat BMP level, decrease IV fluid rate to 60 mL an hour, dialyzed today once the dialysis catheter was placed. Discussed with patient, plan of care discussed. MD ANDRE Duff/NANO /[id number]
[2019-03-23] MEDS ORDERED: AZITHROMYCIN 500MG/NS 250 ML 250 ML IV SCH (20:00)
[2019-03-23] MEDS: PRAVASTATIN 20 MG TAB PO SCH (20:44)
--- NOTE | 2019-03-23 20:53 | NUR ---
Pt complaining of excrutiating pain in left wrist. Area swollen and erythema noted. Dr. Dominguez notified about pt condition and that pt state's he has had a blood clot before. Dr. Dominguez aware, new orders noted.
[2019-03-23] MEDS: HYDROCODONE/APAP 5MG-325MG TAB PO PRN ×2 (21:20→21:30)
--- NOTE | 2019-03-23 21:57 | Consultation ---
DATE OF CONSULTATION: REASON FOR CONSULTATION: Sepsis, pneumonia. HISTORY OF PRESENT ILLNESS: This patient is very pleasant 73-year-old white male. The patient comes in to the hospital on March 22, 2019, here [facility] because he was not feeling well. The patient apparently he was at the grocery store shopping, while he continued to do the shopping, suddenly he felt really bad, could not even walk, so he was sent to the emergency room. The patient who is currently lying in the intensive care unit, has no specific complaint except he is weak. He stated that since he came here is better. The patient does have history of coronary artery disease, myocardial infarction, cardiomyopathy, renal failure in the past requiring life support for 2 weeks at the time of his myocardial infarction. The patient comes in with the above. He does have also history of hypothyroidism and hypercholesteremia. He is currently on Xarelto. The patient has history of atrial fibrillation, sick sinus syndrome, AVM malformation in the past, hip fracture, required pacemaker. Hemiarthroplasty in the past. He had total knee replacement, tendon repair. The patient comes in with the above complaints. Starts IV fluids, IV antibiotic. I was asked to see him and his workup was consistent with pneumonia, but the patient was not doing well at all when he first came, so he was admitted. PAST MEDICAL HISTORY: Otherwise, as above. PAST SURGICAL HISTORY: As above. ALLERGIES: NKA. SOCIAL HISTORY: There is no smoking, drug abuse, or alcohol abuse. FAMILY HISTORY: Otherwise, noncontributory. REVIEW OF SYSTEMS: GENERAL: At present time, he is just very weak. HEENT: There is no headache, visual changes, or hearing changes. GI: There is no nausea, no vomiting, no diarrhea. CARDIAC: There is no arrhythmia. NEURO: No seizure activity. SKIN: There is no rash. JOINTS: There is no erythema or edema. PHYSICAL EXAMINATION: VITAL SIGNS: Temperature 97.5, heart rate of 80, respiration 20, and blood pressure 87/65. HEENT: Normocephalic, not icteric. NECK: Supple. No JVD. No carotid. No thyromegaly. CHEST: Few crackles at the bases. HEART: S1, S2. No S3, S4, or murmur. ABDOMEN: Soft. Bowel sounds present. No tenderness. No hepatosplenomegaly. EXTREMITIES: No edema. SKIN: There is no rash. LABORATORY DATA: Reviewed. Chest x-ray showed left lateral basal opacity. CT of the chest was done, which showed minimal patchy in the right lung base. His white count on admission was 7.95, today 14.1, hemoglobin 12.7. His sodium 139, potassium 3.9, creatinine 4.96. Blood cultures, no growth in 24 hours. He had renal ultrasound, which showed no renal calculi. IMPRESSION: 1. Sepsis, on admission. Source is possibly pneumonia concerned about other. 2. Debility. 3. Weakness from [id number] kidney disease. 4. Dehydration. I would recommend to obtain blood culture, which was done. We will obtain CT of abdomen and pelvis. Agree with cefepime and azithromycin. We will change Rocephin to 1 g a day. Await the blood cultures. Agree with supportive care. The patient may need dialysis. Cardiac workup per Cardiology consult. We will follow with you to summarize sudden onset of weakness, etiology unclear, rule out cardiac versus other. Agree with antibiotic. We will get a CT scan to rule out intraabdominal process. MD KAROLYN Ball/NANO /[id number]
[2019-03-24] VITALS (26 sets, daily range): BP systolic 88–134; BP diastolic 43–82
[2019-03-24] MEDS: ALBUTEROL/IPRATROPIUM 3 ML NEB NEB SCH ×4 (01:00→18:55)
[2019-03-24] MEDS: HYDROCODONE/APAP 5MG-325MG TAB PO PRN ×3 (01:30→11:27)
[2019-03-24] MEDS: SODIUM BICARBONATE 8.4% SYRING 150 ML in DEXTROSE 5% 1,000 ML IV SCH ×3 (03:24)
[2019-03-24] MEDS: CEFEPIME 1GM/NS 0.9% 50 ML 50 ML IV SCH ×2 (03:31→15:28)
[2019-03-24] MEDS: ONDANSETRON HCL INJ 2MG/ML 2ML 2 MG/ML VIAL IV PRN (04:42)
[2019-03-24] MEDS: LEVOTHYROXINE SODIUM 25 MCG TABLET PO SCH (05:00)
[2019-03-24 05:15] LABS: BASOPHILS % 0.4 % (0.0-1.0); EOSINOPHILS # (AUTO) 0.3 (0.0-0.4); EOSINOPHILS % 3.7 % (0.0-6.0); HEMATOCRIT 27.9 % (38.2-49.6); HEMOGLOBIN 9.1 g/dL (14.0-18.0); LYMPHOCYTES # (AUTO) 0.5 (1.0-3.2); LYMPHOCYTES % 7.5 % (18.0-39.1); MEAN CORPUSCULAR HEMOGLOBIN 30.6 pg (28-32); MEAN CORPUSCULAR HGB CONC 32.6 g/dL (31-35); MEAN CORPUSCULAR VOLUME 93.9 fL (81-99); MONOCYTES # (AUTO) 0.6 (0.2-0.8); MONOCYTES % 9.2 % (4.4-11.3); NEUTROPHILS # (AUTO) 5.4 (2.1-6.9); NEUTROPHILS % 78.6 % (38.7-80.0); PLATELET COUNT 83 x10e3/uL (140-360); RED BLOOD COUNT 2.97 x10e6/uL (4.3-5.7); RED CELL DISTRIBUTION WIDTH 14.1 % (11.7-14.4)
[2019-03-24 05:26] LABS: INR 1.12; PROTHROMBIN TIME 14.9 seconds (11.9-14.5)
[2019-03-24] MEDS: METRONIDAZOLE 500MG/NS 100ML 100 ML IV SCH ×4 (05:30→17:28)
[2019-03-24 05:33] LABS: ALBUMIN 2.9 g/dL (3.5-5.0); ANION GAP 14.5 mmol/L (8-16); CALCIUM 7.2 mg/dL (8.4-10.2); CREATININE, SERUM 3.29 mg/dL (0.72-1.25); POTASSIUM 3.5 mmol/L (3.5-5.1)
[2019-03-24 06:48] LABS: PLATELET ESTIMATE SLIGHTLY DECREASED; RBC MORPHOLOGY COMMENT NORMAL
[2019-03-24 06:49] LABS: PLATELET MORPHOLOGY COMMENT NORMAL
[2019-03-24] MEDS ORDERED: SODIUM CHLORIDE 0.9% 1000ML 2,000 ML ONE (07:11)
--- NOTE | 2019-03-24 09:26 | Diagnostic Imaging Report ---
EXAMINATION: WRIST COMPLETE LEFT INDICATION: Wrist pain COMPARISON: None FINDINGS: 3 views of the left wrist demonstrate no acute fracture or dislocation. Alignment is anatomic. No substantial degenerative change. The soft tissues appear unremarkable. IMPRESSION: No acute osseous injury. Signed by: Boyd Wilhelm MD on 03/24/2019 9:23 AM
[2019-03-24] MEDS ORDERED: METHYLPREDNISOLONE SOD SUCC 40 MG/ML VIAL 1ML IV ONE (09:30)
[2019-03-24] MEDS ORDERED: PROMETHAZINE 25MG/ NS 50ML (IV) IV ONE (10:45)
[2019-03-24] MEDS: THIAMINE HCL 100 MG TAB PO SCH (11:11)
[2019-03-24] MEDS: IRON SUCROSE 100 MG in SODIUM CHLORIDE 0.9% 100 ML 100 ML IV SCH (12:00)
[2019-03-24] MEDS: CYCLOBENZAPRINE HCL 10 MG TAB PO PRN (12:44)
--- NOTE | 2019-03-24 12:50 | NUR ---
pt w/ hr of 110 to 140's instructed to remain in bed, he is sitting in side of the bed intermittently getting up with assistance of visitor. pt demonstrates increased weakness and is unable to hold self up. pt verbalizes understanding of fall or worsening of symptoms if unable to hold self up. medication given as per emar.
--- NOTE | 2019-03-24 14:25 | NUR ---
Nutrition Screen Note RD Recommendation for Physician: -Continue diet as ordered -Rec Nepro BID if PO <50% Plan of Care: RD following, monitoring for tolerance and adequacy Nutrition reason for involvement: Nutrition Risk Trigger MST Primary Diagnose(s): sepsis, debility, weakness, RUFINO PMH: CAD, [place], cardiomyopathy, renal failure, hypothyroidism, hypercholesteremia, atrial fibrillation, sick sinus syndrome Ht: 67in Wt: 160lb BMI: 25.1kg/m2 IBW: 148lb +/- 10% RD Assessment: (03/24) Chart reviewed. Labs and meds reviewed. 73yo M, who was admitted for weakness. Pt was discussed during AM rounds. Pt had dialysis today and yesterday. Hyperkalemia has resolved. Renal function has improved. Visited pt in the room. Pt appeared uncomfortable with complain of nausea or vomiting. RN stated pt didnt eat breakfast this AM as he was being dialyzed. LBM 03/23. Unable to complete my assessment as pt was complaining of discomfort. Will reassess when appropriate. Current Diet: cardiac diet Malnutrition Evaluation (03/24/2019) Unable to evaluate during my time of visit. Diet Education Needs Assessment: Diet education not indicated. Nutrition Care Level: low Signed: Pebbles Zavala, MS, RD, LD
[2019-03-24] MEDS: PRAVASTATIN 20 MG TAB PO SCH (20:04)
[2019-03-25] VITALS (23 sets, daily range): BP systolic 100–155; BP diastolic 50–93
[2019-03-25] MEDS: ALBUTEROL/IPRATROPIUM 3 ML NEB NEB SCH ×4 (00:30→19:25)
[2019-03-25] MEDS: METRONIDAZOLE 500MG/NS 100ML 100 ML IV SCH ×7 (01:12→23:33)
[2019-03-25] MEDS: SODIUM BICARBONATE 8.4% SYRING 150 ML in DEXTROSE 5% 1,000 ML IV SCH ×2 (04:07→17:04)
[2019-03-25] MEDS: CEFEPIME 1GM/NS 0.9% 50 ML 50 ML IV SCH ×2 (04:07→16:09)
[2019-03-25] MEDS: LEVOTHYROXINE SODIUM 25 MCG TABLET PO SCH (06:03)
--- NOTE | 2019-03-25 06:46 | Diagnostic Imaging Report ---
A single frontal view of the chest. HISTORY: Pneumonia, metabolic acidosis, community-acquired pneumonia COMPARISON: Chest radiograph March 23, 2019 DISCUSSION: Portable technique, limits sensitivity of the exam. Soft tissue attenuation partially limits sensitivity of the exam. Multiple overlying monitoring leads. Tubes/Lines: Unchanged appearance of the left-sided implanted cardiac device. Lungs and pleura: Low lung volumes result in bibasilar vascular crowding, accentuation of the pulmonary interstitial markings, central pulmonary vasculature, and the cardiac silhouette. Allowing for these limitations, the findings are as follows: Diffusely increased mild patchy interstitial and airspace opacities. No definite pleural effusion or pneumothorax is identified. Heart and mediastinum: The cardiomediastinal silhouette remains partially obscured. Bones and soft tissues: Appear unremarkable, given this limited exam. IMPRESSION: Diffuse bilateral interstitial and airspace opacities, remains most consistent with mild pulmonary edema although atypical/multifocal pneumonia is a consideration the provided setting. Signed by: Dr. Abrahan Barillas D.O., M.M.M. on 03/25/2019 6:43 AM
[2019-03-25] MEDS: THIAMINE HCL 100 MG TAB PO SCH (08:00)
[2019-03-25] MEDS: IRON SUCROSE 100 MG in SODIUM CHLORIDE 0.9% 100 ML 100 ML IV SCH (09:00)
[2019-03-25] MEDS: APIXAB 2.5 MG TABLET PO SCH (17:29)
--- NOTE | 2019-03-25 17:34 | NUR ---
Dr. Arcos called this morning, no dialysis orders given for today. Will most likely do dialysis tomorrow. BNP drawn, Dr. Arcos's office paged to inform MD of results. Page went unanswered. Patient ambulated with physical therapy today in hallway and has spent most of the day up in the chair. Patient has had a good appetite today. Orders given to transfer patient to medical surgical unit with telemetry. Patient has history of stroke and WI, current rhythm is AFIB on monitor (history of AFIB as well). Patient informed RN he takes eliquis. Dr. Dominguez notified, eliquis resumed per MD.
[2019-03-25] MEDS: PRAVASTATIN 20 MG TAB PO SCH (20:46)
[2019-03-26] VITALS (8 sets, daily range): BP systolic 93–140; BP diastolic 48–71
[2019-03-26] MEDS: ALBUTEROL/IPRATROPIUM 3 ML NEB NEB SCH ×4 (01:10→19:30)
--- NOTE | 2019-03-26 03:04 | NUR ---
Patient remains in bedside chair per his request, patient stands independently and repositions self in chair ad gene
[2019-03-26] MEDS: CEFEPIME 1GM/NS 0.9% 50 ML 50 ML IV SCH ×2 (03:51→16:45)
[2019-03-26 05:11] LABS: BASOPHILS % 0.5 % (0.0-1.0); EOSINOPHILS # (AUTO) 0.3 (0.0-0.4); EOSINOPHILS % 3.5 % (0.0-6.0); HEMATOCRIT 29.3 % (38.2-49.6); HEMOGLOBIN 9.5 g/dL (14.0-18.0); LYMPHOCYTES # (AUTO) 0.9 (1.0-3.2); LYMPHOCYTES % 10.9 % (18.0-39.1); MEAN CORPUSCULAR HEMOGLOBIN 31.6 pg (28-32); MEAN CORPUSCULAR HGB CONC 32.4 g/dL (31-35); MEAN CORPUSCULAR VOLUME 97.3 fL (81-99); MONOCYTES # (AUTO) 0.6 (0.2-0.8); MONOCYTES % 7.3 % (4.4-11.3); NEUTROPHILS % 77.4 % (38.7-80.0); PLATELET COUNT 93 x10e3/uL (140-360); RED BLOOD COUNT 3.01 x10e6/uL (4.3-5.7); RED CELL DISTRIBUTION WIDTH 14.5 % (11.7-14.4)
[2019-03-26 05:32] LABS: ALBUMIN 3.1 g/dL (3.5-5.0); ANION GAP 15.4 mmol/L (8-16); CALCIUM 7.3 mg/dL (8.4-10.2); CREATININE, SERUM 2.18 mg/dL (0.72-1.25); POTASSIUM 3.4 mmol/L (3.5-5.1)
[2019-03-26] MEDS: METRONIDAZOLE 500MG/NS 100ML 100 ML IV SCH ×3 (05:42→18:30)
[2019-03-26] MEDS: LEVOTHYROXINE SODIUM 25 MCG TABLET PO SCH (05:42)
--- NOTE | 2019-03-26 06:14 | NUR ---
AM labs reported to Dr. Wilson, states to just wait for Dr. rAcos to see him today
--- NOTE | 2019-03-26 08:30 | NUR ---
Dr. Arcos called this a.m. No HD ordered for this morning
[2019-03-26] MEDS: THIAMINE HCL 100 MG TAB PO SCH (08:57)
[2019-03-26] MEDS: APIXAB 2.5 MG TABLET PO SCH ×2 (08:57→17:09)
[2019-03-26] MEDS: IRON SUCROSE 100 MG in SODIUM CHLORIDE 0.9% 100 ML 100 ML IV SCH (11:02)
--- NOTE | 2019-03-26 14:45 | NUR ---
Dr. Lim paged for new patient consult. waiting on return call
[2019-03-26] MEDS ORDERED: MAGNESIUM SULFATE 2GM/50ML 50 ML IV ONE (16:00)
[2019-03-26] MEDS ORDERED: CEFTRIAXONE SOD 1 GM/NS 50 ML 50 ML IV SCH (16:00)
[2019-03-26] MEDS ORDERED: POTASSIUM CHLORIDE 20MEQ/100ML 200 ML IV ONE (16:00)
[2019-03-26] MEDS: BUMETANIDE INJ 0.25MG/ML 4ML VIAL IV SCH ×2 (16:46→22:46)
--- NOTE | 2019-03-26 16:54 | NUR ---
Nutrition Follow-up Note RD Recommendation for Physician: The patient meets criteria for MODERATE protein-calorie malnutrition. - Continue diet as ordered Plan of Care: RD following, monitoring for tolerance and adequacy Nutrition reason for involvement: Follow up Primary Diagnose(s): sepsis, debility, weakness, RUFINO PMH: CAD, IA, cardiomyopathy, renal failure, hypothyroidism, hypercholesteremia, atrial fibrillation, sick sinus syndrome Ht: 67in Wt: 160lb BMI: 25.1kg/m2 IBW: 148lb +/- 10% RD Assessment: (03/26) Visited pt in the room. Pt was very pleasant during my visit. His appetite has improved with 50-100% meal intake. No plan for HD today. Renal function has improved. Pt denied any nausea or vomiting. LBM 03/26. Pt denied any chewing or swallowing difficulty. Pt reported 80lbs weight loss in the last year due to chronic illnesses and multiple hospital admissions. Pt refused any oral nutrition supplements. Discussed menu options with pt. Will continue to monitor and follow. (03/24) Chart reviewed. Labs and meds reviewed. 73yo M, who was admitted for weakness. Pt was discussed during AM rounds. Pt had dialysis today and yesterday. Hyperkalemia has resolved. Renal function has improved. Visited pt in the room. Pt appeared uncomfortable with complain of nausea or vomiting. RN stated pt didnt eat breakfast this AM as he was being dialyzed. LBM 03/23. Unable to complete my assessment as pt was complaining of discomfort. Will reassess when appropriate. Current Diet: cardiac diet Malnutrition Evaluation (03/26/2019) The patient meets criteria for MODERATE protein-calorie malnutrition. Energy intake: <75% of estimated energy requirements for >3 months Weight loss: >20% in 1 year (Chronic) Fat loss: Mild- clavicle protrusion Muscle loss: Mild- temporal depression Supporting Evidence: Fluid accumulation: unable to evaluate Functional Status: reduced Malnutrition Evaluation (03/24/2019) Unable to evaluate during my time of visit. Diet Education Needs Assessment: Diet education not indicated. Nutrition Care Level: mod Signed: Pebbles Zavala, MS, RD, LD
--- NOTE | 2019-03-26 18:24 | Consultation ---
DATE OF CONSULTATION: Cardiology Consultation HISTORY OF PRESENT ILLNESS: This is a 73-year-old man, who presented with generalized weakness, fatigue and shortness of breath. The patient was found to be in acute renal failure with a creatinine of 5.3 in significant metabolic acidosis. The patient has a prior history of a coronary artery disease, peripheral artery disease, atrial fibrillation, carotid arterial disease, hypertension, hyperlipidemia, chronic systolic congestive heart failure, presence of a pacemaker. We were consulted for atrial fibrillation. The patient is on blood thinners at home for stroke risk reduction. No evidence of bleeding at home. He denies any other ongoing symptoms such as chest pain, shortness of breath, palpitations, or syncopal symptoms. REVIEW OF SYSTEMS: A 12-point review of system was conducted, is negative except as stated above in the HPI. PAST MEDICAL HISTORY: As stated above in the HPI. PAST SURGICAL HISTORY: Cardiac catheterization, carpal tunnel, knee surgery. MEDICATIONS: See medication reconciliation form. SOCIAL HISTORY: No illicit drug, alcohol, or tobacco use. ALLERGIES: MORPHINE. PHYSICAL EXAMINATION: VITAL SIGNS: Temperature is 96.4, heart rate is 92, respirations are 18, blood pressure is 106/48, ox saturation 100% on room air. GENERAL: Well-appearing elderly man, seated at bedside. HEAD: Normocephalic, atraumatic. Eyes, the extraocular intact. Conjunctivae clear. NECK: No JVD. No bruits. CARDIOVASCULAR: He is irregularly irregular with episodes of tachycardia, systolic murmur at the left sternal border. LUNGS: Diminished breath sounds at bases. ABDOMEN: Soft, nontender, nondistended. EXTREMITIES: No edema. VASCULAR: Diminished pulses. NEUROLOGIC: No focal deficits noted. LABORATORY DATA: Creatinine 2.18, potassium 3.4. BNP is 2674. Troponins are negative x4. Telemetry monitoring revealed atrial fibrillation with ventricular paced rhythm. IMPRESSION: 1. Acute on chronic kidney disease. 2. Atrial fibrillation. 3. Congestive heart failure. 4. Coronary artery disease. 5. Peripheral arterial disease. 6. Hypertension. 7. Presence of permanent pacemaker. RECOMMENDATIONS: Recent echocardiogram in our office showed a left ventricular ejection fraction of 45% to 50%. Please have the pacemaker interrogated. Bumex has been initiated and will continue this to monitor daily creatinines and urinary outputs. Continue apixaban for his anticoagulation needs. Resume beta blockers. Avoid nephrotoxic agents. DO RUDI Zimmerman/NANO /[id number]
[2019-03-26] MEDS: METOPROLOL TARTRATE 25 MG TAB PO SCH (18:35)
[2019-03-26] MEDS: PRAVASTATIN 20 MG TAB PO SCH (20:38)
[2019-03-27] VITALS (10 sets, daily range): BP systolic 92–133; BP diastolic 49–73
[2019-03-27] MEDS ORDERED: SODIUM CHLORIDE 0.9% 250ML 250 ML ONE ×2 (00:25→17:33)
[2019-03-27] MEDS: ALBUTEROL/IPRATROPIUM 3 ML NEB NEB SCH ×2 (01:08→07:00)
[2019-03-27] MEDS: METRONIDAZOLE 500MG/NS 100ML 100 ML IV SCH ×4 (01:29→18:09)
--- NOTE | 2019-03-27 02:33 | Diagnostic Imaging Report ---
Frontal and lateral views of the chest. HISTORY: Pneumonia, metabolic acidosis, CHF COMPARISON: Chest radiograph March 25, 2019 DISCUSSION: Portable technique, limits sensitivity of the exam. Soft tissue attenuation partially limits sensitivity of the exam. Multiple overlying monitoring leads. Tubes/Lines: Unchanged appearance of the left-sided implanted cardiac device. Lungs and pleura: Low lung volumes result in bibasilar vascular crowding, accentuation of the pulmonary interstitial markings, central pulmonary vasculature, and the cardiac silhouette. Allowing for these limitations, the findings are as follows: Interval decrease of the mild patchy interstitial and airspace opacities. No definite pleural effusion or pneumothorax is identified. Heart and mediastinum: The cardiomediastinal silhouette appears unremarkable. Bones and soft tissues: Appear unremarkable, given this limited exam. IMPRESSION: 1. Interval improved interstitial edema. 2. No consolidative pneumonia. Signed by: Dr. Abrahan Barillas D.O., M.M.M. on 03/27/2019 2:30 AM
[2019-03-27] MEDS: CEFEPIME 1GM/NS 0.9% 50 ML 50 ML IV SCH ×2 (04:02→10:17)
[2019-03-27 05:46] LABS: ALBUMIN 2.9 g/dL (3.5-5.0); ALBUMIN/GLOBULIN RATIO 0.9 (0.8-2.0); ANION GAP 11.8 mmol/L (8-16); CALCIUM 7.6 mg/dL (8.4-10.2); CREATININE, SERUM 2.18 mg/dL (0.72-1.25); MAGNESIUM 1.8 MG/DL (1.3-2.1); PHOSPHORUS 2.1 MG/DL (2.3-4.7); POTASSIUM 3.8 mmol/L (3.5-5.1)
[2019-03-27] MEDS: LEVOTHYROXINE SODIUM 25 MCG TABLET PO SCH (06:53)
[2019-03-27] MEDS: BUMETANIDE INJ 0.25MG/ML 4ML VIAL IV SCH ×3 (06:53→22:00)
[2019-03-27] MEDS: APIXAB 2.5 MG TABLET PO SCH ×2 (10:17→17:07)
[2019-03-27] MEDS: THIAMINE HCL 100 MG TAB PO SCH (10:17)
[2019-03-27] MEDS: METOPROLOL TARTRATE 25 MG TAB PO SCH ×2 (10:17→17:07)
[2019-03-27] MEDS ORDERED: PHOSPHORUS 250 MG TAB PO NR (15:30)
--- NOTE | 2019-03-27 15:30 | NUR ---
Patient arrived to the unit at this time via wheelchair. Patient A&Ox3. Patient verbalizes no pain. Moore catheter intact and draining by gravity. Call luque within reach. Bed is low and locked. Instructed patient to call for assistance. Addendum: 03/27/19 at 1626 by Edward Ospina RN Patient stated he will not call before getting up. He states, "I forget." He proceeded to laugh and smile at me. I educated him that it could be detrimental if he falls. I set the bed alarm for precaution.
--- NOTE | 2019-03-27 18:15 | Progress Note ---
DATE: 03/27/2019 Cardiology Progress Note SUBJECTIVE: The patient denies chest pain. He reports his shortness of breath has improved. OBJECTIVE: VITAL SIGNS: Temperature 97.1 degrees, pulse 97, respiratory rate 13, blood pressure 108/58, oxygen saturation 99% on room air. GENERAL: Elderly man, no acute distress, awake and alert. LUNGS: Diminished breath sounds at the bases. CARDIOVASCULAR: Normal rate, irregularly irregular. Systolic murmur is present. ABDOMEN: Soft, nontender. EXTREMITIES: 1+ pitting edema. CARDIAC MEDICATIONS: Metoprolol tartrate 25 mg p.o. b.i.d., apixaban 2.5 mg p.o. b.i.d., Bumex 2 mg IV q.8 hours, levothyroxine 25 mcg p.o. daily. LABORATORY DATA: Sodium 142, potassium 3.8, chloride 101, CO2 of 33, BUN 27, and creatinine 2.18. TELEMETRY: Atrial fibrillation with ventricular pacing. IMPRESSION: 1. Acute on chronic kidney disease. 2. Atrial fibrillation. 3. Chronic mild systolic heart failure, EF 45% to 50% on echocardiogram at the office. 4. Coronary artery disease. 5. Peripheral arterial disease. 6. Hypertension. 7. Status post permanent pacemaker. RECOMMENDATIONS: Monitor the patient on telemetry. Device check revealed 100% atrial fibrillation with 9.5 years. Battery remaining 94% BiV paced. No events. Continue current cardiac medications. Continue apixaban for CVA prophylaxis. Diuresis per Nephrology given acute on chronic kidney disease. Thank you for this consult. We will continue to follow. Dorita Lim MD ABS/MODL /[id number]
--- NOTE | 2019-03-27 19:30 | NUR ---
Patient received sitting in recliner chair. AAO x 3. Patient had no complaints of pain. Respirations even and non-labored. Moore catheter draining pale clear yellow urine. Safety precautions maintained. Patient instructed to call for assistance when needed. Call light within reach.
[2019-03-27] MEDS: PRAVASTATIN 20 MG TAB PO SCH (20:39)
[2019-03-27] MEDS ORDERED: ZOLPIDEM TARTRATE 5 MG TAB PO PRN (21:00)
[2019-03-28] VITALS (9 sets, daily range): BP systolic 113–134; BP diastolic 56–79
[2019-03-28] MEDS: METRONIDAZOLE 500MG/NS 100ML 100 ML IV SCH ×5 (00:20→23:56)
[2019-03-28] MEDS: BUMETANIDE INJ 0.25MG/ML 4ML VIAL IV SCH ×3 (05:32→22:25)
[2019-03-28] MEDS: LEVOTHYROXINE SODIUM 25 MCG TABLET PO SCH (05:33)
--- NOTE | 2019-03-28 07:09 | NUR ---
Patient resting comfortably. Shift report given to oncoming nurse regarding patient's status.
[2019-03-28] MEDS: CEFEPIME 1GM/NS 0.9% 50 ML 50 ML IV SCH (09:04)
[2019-03-28] MEDS: THIAMINE HCL 100 MG TAB PO SCH (09:04)
[2019-03-28] MEDS: APIXAB 2.5 MG TABLET PO SCH ×2 (09:04→16:33)
[2019-03-28] MEDS: METOPROLOL TARTRATE 25 MG TAB PO SCH ×2 (09:05→16:34)
[2019-03-28] MEDS: CHOLESTYRAMINE 4 GM PACKET PO SCH ×2 (09:05→16:34)
--- NOTE | 2019-03-28 18:46 | NUR ---
upon completion of rounds, pt alert resp even and unlabored at this time, no distress noted, call light in reach
--- NOTE | 2019-03-28 19:26 | NUR ---
Patient received in recliner chair. Denies pain or discomfort at this tome. No signs of respiratory discomfort. Moore catheter draining pale clear yellow urine. Call light within reach.
[2019-03-28] MEDS: PRAVASTATIN 20 MG TAB PO SCH (20:46)
[2019-03-29] VITALS (9 sets, daily range): BP systolic 82–113; BP diastolic 50–61
[2019-03-29] MEDS: ONDANSETRON HCL INJ 2MG/ML 2ML 2 MG/ML VIAL IV PRN (00:04)
--- NOTE | 2019-03-29 00:19 | Progress Note ---
DATE: 03/28/2019 Cardiology Progress Note SUBJECTIVE: The patient denies chest pain or shortness of breath. OBJECTIVE: VITAL SIGNS: Temperature 96.6 degrees, pulse 81, respiratory rate 16, blood pressure 115/79, oxygen saturation 96% on room air. GENERAL: Elderly man, in no acute distress, awake and alert. LUNGS: Diminished breath sounds at the bases. CARDIOVASCULAR: Normal rate, irregularly irregular. Systolic murmur. ABDOMEN: Soft, nontender. EXTREMITIES: 1+ pitting edema. CARDIAC MEDICATIONS: Metoprolol tartrate 25 mg p.o. b.i.d., apixaban 2.5 mg p.o. b.i.d., Bumex 2 mg IV q.8 hours, levothyroxine 25 mcg p.o. daily. LABORATORY DATA: None today. TELEMETRY: V-paced. IMPRESSION: 1. Zibdm-kg-arrhpbf kidney disease. 2. Atrial fibrillation. 3. Chronic systolic heart failure, EF 45% to 50% on echocardiogram at the office. 4. Coronary artery disease. 5. Peripheral arterial disease. 6. Hypertension, status post permanent pacemaker. RECOMMENDATIONS: Monitor the patient on telemetry while admitted. Continue current cardiac medications including apixaban for CVA prophylaxis. Diuresis per Nephrology given rielc-vi-fherfjf kidney disease. Thank you for this consult. We will continue to follow. Dorita Lim MD ABS/MODL /[id number]
[2019-03-29] MEDS: METRONIDAZOLE 500MG/NS 100ML 100 ML IV SCH ×2 (05:26→11:42)
[2019-03-29] MEDS: LEVOTHYROXINE SODIUM 25 MCG TABLET PO SCH (05:27)
[2019-03-29] MEDS: BUMETANIDE INJ 0.25MG/ML 4ML VIAL IV SCH ×2 (05:27→13:48)
--- NOTE | 2019-03-29 06:44 | NUR ---
Patient refused bed alarm. Patient purposefully getting out of from bed and letting the alarm go off because he does not want the constraints of a bed alarm. Patient instructed on benefits/risks of bed alarm. Patient nodded in acknowledgement.
--- NOTE | 2019-03-29 07:00 | NUR ---
Walking rounds done. Report given to oncoming nurse.
--- NOTE | 2019-03-29 07:00 | NUR ---
received am report from nurse, morning rounds done. pt is alert, sitting up in bed, no s/s of distress. call light within reach, instructed to call nurse for help. walker is easily accessible at the bedside.
[2019-03-29] MEDS: METOPROLOL TARTRATE 25 MG TAB PO SCH ×2 (08:45→17:13)
[2019-03-29] MEDS: THIAMINE HCL 100 MG TAB PO SCH (09:00)
[2019-03-29] MEDS: APIXAB 2.5 MG TABLET PO SCH ×2 (09:00→17:13)
[2019-03-29] MEDS: CHOLESTYRAMINE 4 GM PACKET PO SCH ×2 (09:00→17:14)
[2019-03-29 11:05] LABS: ALBUMIN/GLOBULIN RATIO 0.8 (0.8-2.0); ALKALINE PHOSPHATASE 52 IU/L (40-150); ANION GAP 12.9 mmol/L (8-16); BLOOD UREA NITROGEN 26 mg/dL (7-26); BUN/CREATININE RATIO 12 (6-25); CALCIUM 8.5 mg/dL (8.4-10.2); CARBON DIOXIDE 30 mmol/L (22-29); CHLORIDE 97 mmol/L (98-107); CREATININE, SERUM 2.14 mg/dL (0.72-1.25); EST GLOMERULAR FILTRATION RATE 31 ML/MIN (60-); GLUCOSE 90 mg/dL (74-118); POTASSIUM 3.9 mmol/L (3.5-5.1); SODIUM 136 mmol/L (136-145)
[2019-03-29 11:07] LABS: ALANINE AMINOTRANSFERASE < 6 IU/L (0-55)
--- NOTE | 2019-03-29 11:22 | NUR ---
EDUCATED ABOUT IMM, SIGNED, FILED IN CHART, WITH COPY LEFT WITH FAMILY AT BEDSIDE.
[2019-03-29] MEDS ORDERED: SODIUM CHLORIDE 0.9% 250ML 250 ML ONE (11:39)
--- NOTE | 2019-03-29 13:48 | NUR ---
pt's bp is 82/52 heart rate 88. 1400 dose of bumex held
--- NOTE | 2019-03-29 13:55 | NUR ---
Dr. Dominguez returned call and gave orders to change Metoprolol to 12.5mg BID and Bumex 1mg at 0600 and 12 noon.
[2019-03-29] MEDS ORDERED: ONDANSETRON HCL 4 MG ORAL DISINTEGRATING TAB PO PRN (17:00)
--- NOTE | 2019-03-29 18:39 | Consultation ---
DATE OF CONSULTATION: 03/29/2019 Urology Consultation REASON FOR CONSULTATION: Urinary retention. HISTORY OF PRESENT ILLNESS: Roger Alcala is a 73-year-old man, who has chronic renal insufficiency. He has been seeing a environmental sampler in the [facility]. The patient was admitted with a 2-week history of diarrhea and weakness. He was found to be anuric with acute kidney injury. A Moore catheter was placed following the patient's consent. Apparently, his bladder scan showed an empty bladder. The patient denies previous history of hematuria, dysuria, urinary tract infections, or urolithiasis. Denies ever seeing a urologist. PAST MEDICAL AND SURGICAL HISTORY: 1. Cardiac arrest. 2. Myocardial infarction. 3. Chronic kidney failure with acute exacerbation 3 years ago, was on temporary dialysis. 4. Coronary artery stents x4. 5. Status post pacemaker placement. 6. Diabetes, that is now diet-controlled following weight loss. 7. Status post right total knee arthroplasty. 8. Left total hip arthroplasty. 9. Status post hand surgery. 10. Status post left biceps tendon repair. 11. History of clavicle fracture. SOCIAL HISTORY: The patient lives by himself. He denies current smoking and drug use. He drinks vodka daily. He quit smoking over 20 years ago. 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 FAMILY HISTORY: Noncontributory to the active urological problems. ALLERGIES: MORPHINE. CURRENT MEDICATIONS: Please refer to the MAR. REVIEW OF SYSTEMS: Discussed as above history of present illness and past medical history, otherwise negative for all systems. PHYSICAL EXAMINATION: GENERAL: Very pleasant 73-year-old man, sitting up in a chair, in no apparent distress. VITAL SIGNS: He is currently afebrile. Vital signs are currently stable. ABDOMEN: Soft, nondistended, nontender without costovertebral angle tenderness. Kidneys not palpable without hepatosplenomegaly. GENITOURINARY: Testes descended bilaterally. Testes and epididymides bilaterally palpably normal. The patient has a circumcised male phallus with excess eventual tissue and what appears to be a fatty subcutaneous mass. Eventually, digital rectal examination is deferred at the present time. There is a 14-Kyrgyz Moore catheter draining yellow urine out. For the remaining physical examination systems, please refer to the admission history and physical and chart. LABORATORY STUDIES: There is no urine culture is pending. The patient did have a white blood cell count of 14,100 earlier during this hospitalization. The latest white blood cell count is 7790, hemoglobin 9.5, and platelets are 93,000. The patient's creatinine was elevated at 5.33. His latest is 2.14. His potassium was elevated upon admission at 5.2 and then it became lower than normal at 3.4, but it has since normalized 3.9. The patient's calcium was 7.6 and it has since then normalized at 8.5. Urinalysis was unremarkable except for proteinuria. Renal sonography was normal. ASSESSMENT: 1. Presumed urinary retention with the exact volume obtained unclear at the present time. 2. Moore catheter in situ. 3. Leukocytosis, improved. 4. Anemia. 5. Thrombocytopenia. 6. Dzvzr-qr-wgrqvay renal insufficiency. 7. Hyperkalemia, that improved. 8. Hyperkalemia, that improved. 9. Hypocalcemia, that improved. 10. Proteinuria. PLAN: 1. Leave the Moore catheter in place. 2. Hopefully, at some point. We will find out how much was in the bladder upon Moore catheter insertion. 3. I defer the management of the electrolyte abnormalities to the environmental sampler on the case. 4. I defer the hematological abnormalities to the admitting physician. 5. Plan will be to follow the patient up as an outpatient and of course on long-term basis urodynamic study maybe in order to evaluate his symptomatology. In the meantime, we will begin the patient on Flomax. Thank you much for involving us in the care of your patient. We will be happy to follow him along with you as well as an outpatient. Vadim Patterson MD [facility]/MODL /[id number] cc: Redd Franco MD
--- NOTE | 2019-03-29 19:15 | NUR ---
Patient received sitting in recliner chair. AAO x 3. No acute distress noted . Moore catheter draining pale clear yellow urine. Call light within reach.
[2019-03-29] MEDS: PRAVASTATIN 20 MG TAB PO SCH (21:25)
[2019-03-30] VITALS (11 sets, daily range): BP systolic 78–122; BP diastolic 42–66
[2019-03-30] MEDS: METRONIDAZOLE 500MG/NS 100ML 100 ML IV SCH ×2 (00:10→05:35)
--- NOTE | 2019-03-30 01:00 | Progress Note ---
DATE: 03/29/2019 Cardiology Progress Note SUBJECTIVE: The patient denies chest pain or shortness of breath. OBJECTIVE: VITAL SIGNS: Temperature 96.1 degrees, pulse 81, respiratory rate 16, blood pressure 99/51, and oxygen saturation 98% on room air. GENERAL: Elderly man. Awake and alert, in no acute distress. LUNGS: Diminished breath sounds at the right, otherwise clear to auscultation. CARDIOVASCULAR: Normal rate. Irregularly irregular. Systolic murmur. ABDOMEN: Soft and nontender. EXTREMITIES: 1+ pitting edema. CARDIAC MEDICATIONS: Metoprolol tartrate 12.5 mg p.o. b.i.d., Percocet 2.5 mg p.o. b.i.d., levothyroxine 25 mcg p.o. daily, and Bumex 1 mg IV q.12 hours. LABORATORY DATA: Sodium 136, potassium 3.9, chloride 97, CO2 of 30, BUN 26, and creatinine 2.14. Telemetry, V-paced. ASSESSMENT: 1. Acute on chronic kidney disease. 2. Atrial fibrillation. 3. Chronic systolic heart failure, ejection fraction 45%-50% on echo. Last echocardiogram at the office. 4. Coronary artery disease. 5. Peripheral arterial disease. 6. Hypotension. 7. Status post permanent pacemaker. PLAN: 1. Monitor the patient on telemetry while admitted. Continue current cardiac medications including apixaban for CVA prophylaxis, dosage per Nephrology, given acute on chronic kidney disease. Note, the patient is more hypotensive today, metoprolol has been decreased. 2. We will continue to monitor blood pressure. Thank you for this consult. We will continue to follow. Dorita Lim MD ABS/MODL /[id number]
[2019-03-30] MEDS: HYDROCODONE/APAP 5MG-325MG TAB PO PRN (01:55)
[2019-03-30] MEDS: CYCLOBENZAPRINE HCL 10 MG TAB PO PRN (03:01)
[2019-03-30] MEDS: LEVOTHYROXINE SODIUM 25 MCG TABLET PO SCH (05:36)
[2019-03-30] MEDS ORDERED: BUMETANIDE INJ 0.25MG/ML 4ML VIAL IV SCH (06:00)
--- NOTE | 2019-03-30 07:15 | NUR ---
Walking rounds done. Shift report given to oncoming nurse.
[2019-03-30] MEDS ORDERED: SODIUM CHLORIDE 0.9% 250ML 250 ML IV ONE (08:00)
[2019-03-30] MEDS: METOPROLOL TARTRATE 25 MG TAB PO SCH ×2 (08:26→16:12)
[2019-03-30] MEDS: THIAMINE HCL 100 MG TAB PO SCH (09:00)
[2019-03-30] MEDS: APIXAB 2.5 MG TABLET PO SCH ×2 (09:00→17:30)
[2019-03-30] MEDS ORDERED: SODIUM CHLORIDE 0.9% 1000ML 1,000 ML ONE (10:01)
[2019-03-30 10:17] LABS: BASOPHILS % 0.5 % (0.0-1.0); EOSINOPHILS # (AUTO) 0.4 (0.0-0.4); HEMATOCRIT 31.4 % (38.2-49.6); HEMOGLOBIN 9.9 g/dL (14.0-18.0); LYMPHOCYTES # (AUTO) 1.1 (1.0-3.2); LYMPHOCYTES % 13.9 % (18.0-39.1); MEAN CORPUSCULAR HEMOGLOBIN 31.1 pg (28-32); MEAN CORPUSCULAR HGB CONC 31.5 g/dL (31-35); MEAN CORPUSCULAR VOLUME 98.7 fL (81-99); MONOCYTES # (AUTO) 0.8 (0.2-0.8); MONOCYTES % 10.7 % (4.4-11.3); NEUTROPHILS # (AUTO) 5.4 (2.1-6.9); NEUTROPHILS % 69.1 % (38.7-80.0); PLATELET COUNT 125 x10e3/uL (140-360); RED BLOOD COUNT 3.18 x10e6/uL (4.3-5.7); RED CELL DISTRIBUTION WIDTH 14.1 % (11.7-14.4)
[2019-03-30 10:32] LABS: ANION GAP 12.4 mmol/L (8-16); CALCIUM 7.9 mg/dL (8.4-10.2); CREATININE, SERUM 2.81 mg/dL (0.72-1.25); POTASSIUM 3.4 mmol/L (3.5-5.1)
--- NOTE | 2019-03-30 11:05 | NUR ---
PT PRESENTED WITH LETHARGY AND GENERALIZED WEAKNESS, THE LEFT SIDE BEING MORE PROMINENTLY WEAKER THAN THE RIGHT. PT WAS ABLE TO STATE HIS NAME AND DATE OF WHEN ASKED, RESPONSE WAS [place]UGG[place]. RAID RESPONSE WAS CALLED AND PT WAS TAKEN FOR A STAT CT OF THE BRAIN.
--- NOTE | 2019-03-30 11:34 | Diagnostic Imaging Report ---
EXAMINATION: Head CT HISTORY: Left-sided weakness, pneumonia, metabolic acidosis. COMPARISON: Head CT 08/04/2016. TECHNIQUE: Multidetector axial images were obtained without contrast from the foramen magnum to the vertex . The images were reconstructed using brain and bone algorithms. Thin section brain images were reformatted into coronal and sagittal planes. Image quality: Motion/streaking artifact limits the evaluation of the skull base and posterior cranial fossa. Dose modulation, iterative reconstruction, and/or weight based adjustment of the mA/kV was utilized to reduce the radiation dose to as low as reasonably achievable. FINDINGS: Parenchyma: 1. Small chronic lacunar infarcts in the bilateral putamina and left frontal periventricular white matter. 2. Small chronic cortical infarct in the right cerebellum. 3. A few scattered hypodensities in the supratentorial white matter are nonspecific but most compatible with chronic small vessel ischemic changes.. 4. No mass or hemorrhage. No CT evidence of acute territorial vascular insult. Extra-axial spaces:No abnormal density. No extra-axial fluid collections Brain volume: Normal for age. Ventricles: No hydrocephalus or displacement. Arteries: No density suggestive of thrombus. Dural sinuses: No abnormal density. Extra-axial spaces: No abnormal density. Foramen magnum: No mass, Chiari malformation, or basilar invagination. Sella: No obvious mass. Paranasal/mastoid sinuses: Imaged portions unremarkable. Skull/Scalp: No lytic or blastic lesions. No fractures. IMPRESSION: 1. No acute intracranial hemorrhage or cortical infarcts. 2. Stable mild chronic microvascular ischemic changes and small chronic infarcts compared to head CT of 08/04/2016. Signed by: Dr. Mami Welch M.D. on 03/30/2019 11:31 AM
--- NOTE | 2019-03-30 11:46 | NUR ---
RECEIVED PT BACK FROM CT. PT IS MORE AWAKE, LEFT SIDED WEAKNESS IS STILL PRESENT. 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 PT IS COMPLAINING OF SPASMS IN THE LEFT KNEE.
--- NOTE | 2019-03-30 12:33 | Diagnostic Imaging Report ---
CT of the abdomen and pelvis, without contrast, 03/30/2019. History: Sepsis, abdominal pain. Comparison: None available. Technique: Multidetector CT scanning of the abdomen and pelvis was performed from the level of the lung bases to the inferior pubic rami without intravenous or oral contrast. Coronal and sagittal multiplanar reformations were obtained. RADIATION DOSE: Total DLP: 797 mGy*cm Dose modulation, iterative reconstruction, and/or weight based adjustment of the mA/kV was utilized to reduce the radiation dose to as low as reasonably achievable. Discussion: Examination is limited without contrast. Lung bases: There is bibasilar atelectasis. The heart is enlarged. Pacer wires are present. Abdomen: Multiple stones are present within the gallbladder. There is no gallbladder wall thickening or pericholecystic fluid. The liver, biliary tree, spleen, pancreas, adrenal glands, and kidneys are unremarkable. The abdominal aorta is calcified but within normal limits for size. There is no bowel dilatation. The appendix is visualized and is normal. Multiple diverticuli are present within the descending and sigmoid colon without evidence of adjacent inflammation. There is no evidence of adenopathy or free fluid. Pelvis: Metallic streak artifact from left hip prosthesis limits evaluation of the left pelvis. A Moore catheter is present within the bladder which is decompressed. Prostate is unremarkable. There is no evidence of free fluid or adenopathy. Bones and soft tissues: Advanced degenerative changes are present throughout the lumbar spine without evidence of lytic or sclerotic lesion. IMPRESSION: 1. Unchanged cholelithiasis without visible gallbladder wall thickening. 2. Colonic diverticulosis without evidence of diverticulitis. Otherwise unremarkable noncontrast exam. No evidence of nephrolithiasis, appendicitis, or bowel obstruction. Signed by: Dayo Groves on 03/30/2019 12:29 PM
--- NOTE | 2019-03-30 12:39 | Diagnostic Imaging Report ---
CT of the extremity, without contrast, 03/30/2019. History: Sepsis, left knee pain. Comparison: <None available>. Technique: Multidetector imaging of the left knee was performed without contrast. RADIATION DOSE: Total DLP: 198 mGy*cm Dose modulation, iterative reconstruction, and/or weight based adjustment of the mA/kV was utilized to reduce the radiation dose to as low as reasonably achievable. Discussion: There is diffuse osteopenia. Severe joint space narrowing with subchondral sclerosis, subchondral cysts, and osteophytosis is present involving all 3 compartments of the left knee. There is no evidence of fracture or dislocation. There are no focal lytic or sclerotic lesions. A small cyst suprapatellar joint effusion is present. Vascular calcifications are noted posteriorly. There is diffuse subcutaneous edema. 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 Signed by: Dayo Groves on 03/30/2019 12:36 PM
[2019-03-30] MEDS ORDERED: POTASSIUM CHLORIDE 20 MEQ TAB CR PO ONE (14:00)
--- NOTE | 2019-03-30 14:14 | NUR ---
DR. TYLER WAS AT THE BEDSIDE. HE LOOKED AT TELEMETRY STRIPS FROM 10:00 AM TO 11:[address] TYLER REQUESTED THAT THE NURSE CALL DR. SONG AND REPORT TO HER THAT "THE PT HAS SOME SORT OF ARRHYTHMIA." PAGED DR. SONG AND WAITING FOR CALL BACK
--- NOTE | 2019-03-30 15:00 | NUR ---
PT'S BP IS 86/[address] SONG. RECEIVED NEW ORDERS TO GIVE 250ML BOLUS OF NS AND COLLECT BLOOD CULTURE.
--- NOTE | 2019-03-30 15:09 | Progress Note ---
DATE: 03/30/2019 Cardiology Progress Note SUBJECTIVE: METER READER was called for patient just prior to arrival due to hypotension as well as altered mental status. On evaluation, the patient was lethargic, would follow simple commands, but was noted to have left-sided weakness. Stat CT of the head was ordered for patient as well as Neurology consultation. OBJECTIVE: VITAL SIGNS: Temperature 96.1 degrees, pulse 92, respiratory rate 20, blood pressure 122/66, oxygen saturation 97% on room air. GENERAL: Elderly man, no acute distress, lethargic. LUNGS: Diminished breath sounds at the right, otherwise clear to auscultation. CARDIOVASCULAR: Normal rate, irregularly irregular. Systolic murmur. ABDOMEN: Soft, nontender. EXTREMITIES: 1+ pitting edema. NEURO: Lethargic, would follow simple commands. However, left upper extremity was noticeably weaker than the right. CARDIAC MEDICATIONS: Metoprolol tartrate 12.5 mg p.o. b.i.d., apixaban 2.5 mg p.o. b.i.d. LABORATORY DATA: WBC 7.86, hemoglobin 9.9, hematocrit 31.4, platelets 125. Sodium 132, potassium 3.4, chloride 99, CO2 of 24, BUN 33, creatinine 2.81. TELEMETRY: V paced. IMPRESSION: 1. Acute on chronic kidney disease. 2. Atrial fibrillation. 3. Chronic systolic heart failure with EF 45% to 50% on last echo at the office. 4. Coronary artery disease. 5. Peripheral arterial disease. 6. Hypertension status post permanent pacemaker. RECOMMENDATIONS: Monitor the patient on telemetry while admitted. Continue current cardiac medications including apixaban for CVA prophylaxis. Bumex has been stopped due to rising creatinine. Monitor volume status closely. The patient's blood pressure improved with IV fluid bolus. Hold metoprolol for now given altered mental status and asymmetric weakness. Stat CT head and Neurology consultation were ordered. Continue current cardiac medications otherwise. Thank you for this consult. We will continue to follow. Dorita Lim MD ABS/MODL /[id number]
[2019-03-30] MEDS ORDERED: SODIUM CHLORIDE 0.9% 250ML 250 ML IV NR (16:15)
[2019-03-30] MEDS ORDERED: SODIUM CHLORIDE 0.9% 250ML 250 ML ONE (16:17)
--- NOTE | 2019-03-30 17:42 | NUR ---
PT'S BP IS 98/43 HR 90. BP ON SECOND CHECK WAS 84/43. CALLED DR. ALICEA, HE GAVE ORDERS TO CONTINUE MONITORING PT, THAT THE BP MAY BE A MISREADING BECAUSE OF A-FIB/PACEMAKER. WILL CONTINUE TO MONITOR PT.
[2019-03-30] MEDS: PRAVASTATIN 20 MG TAB PO SCH (20:51)
--- NOTE | 2019-03-30 22:26 | Consultation ---
DATE OF CONSULTATION: 03/30/2019 Neurology Consult Note HISTORY OF PRESENT ILLNESS: Mr. Alcala has been hospitalized at [facility] for approximately 8 days. Due to his prolonged and complex hospitalization, elements of the patient's history have been obtained from review of the electronic medical records. Mr. Alcala was admitted to [facility] on March 22, 2019, after presenting to the emergency center with a 2-week history of diarrhea, fatigue, generalized weakness, and shortness of breath. In the emergency center, the patient was found to be dehydrated with severe metabolic acidosis, acute kidney injury superimposed on chronic kidney disease with a creatinine of 5.33, and septic secondary to possible pneumonia. Mr. Alcala was admitted to [facility] for further evaluation and treatment of the aforementioned. Throughout his hospitalization, in addition to being under the care of Dr. Artem Dominguez, the patient's primary attending, Mr. Alcala has been under the care of the Cardiology service for atrial fibrillation, the Renal service for acute kidney injury superimposed on chronic kidney disease with the patient requiring two rounds of hemodialysis during this hospitalization, and the Infectious Disease service for sepsis secondary to pneumonia. On the morning of March 30, 2019, the patient was found to be hypotensive with a blood pressure of 78/42 mmHg. On physical examination, the patient was noted to be lethargic, confused, and with left hemiparesis, which was believed to be a new focal deficit. Mr. Alcala underwent an electrocardiogram, which revealed atrial fibrillation with premature aberrantly conducted complexes. A CT of the brain without contrast was performed. This study did not reveal evidence of recent large territorial ischemia or hemorrhage. Subsequently, a Neurology consultation was placed for further evaluation and treatment of the above described symptoms. For symptomatic treatment, Mr. Alcala has received a total of 1500 mL of normal saline intravenously through a series of boluses beginning at approximately 0830 on March 30, 2019. Mr. Alcala does report a history of a prior stroke occurring 20 years ago with residual left homonymous hemianopia, left facial droop, left hemiparesis, and left hemihypesthesia. Mr. Alcala does acknowledge worsening of his baseline neurological deficits earlier today in conjunction with decrease in the patient's blood pressure. REVIEW OF SYSTEMS: Fatigue, shortness of breath, diarrhea, left homonymous hemianopsia (chronic), left facial weakness and numbness (chronic), generalized weakness superimposed on chronic left hemiparesis, chronic left hemihypesthesia, and impairment of balance and gait. Otherwise, a 12-point review of systems is negative. PAST MEDICAL HISTORY: Hypertension, hyperlipidemia, diabetes mellitus controlled with diet, coronary artery disease with prior myocardial infarction (infarction), systolic congestive heart failure, atrial fibrillation, thyroid disease, chronic kidney disease with a reported significant decline in kidney function requiring hemodialysis for one month, three years ago, diverticulitis, colon polyps, sick sinus syndrome, stroke with residual left homonymous hemianopsia, left facial droop, left hemiparesis, and left hemihypesthesia, peripheral arterial disease, carotid artery stenosis, obstructive sleep apnea, and peripheral neuropathy of undetermined etiology. PAST SURGICAL HISTORY: Pacemaker implantation, prior fracture of the left hip with hemiarthroplasty, right knee replacement, left biceps tendon repair, cardiac catheterization with four stents placed, and carpal tunnel release. PAST HOSPITALIZATIONS: Surgeries/procedures as listed, numerous hospitalizations for various diagnoses. FAMILY MEDICAL HISTORY: There is no reported significant family medical history. SOCIAL HISTORY: Mr. Alcala is single. He lives alone and cares for himself. The patient is retired. There is a prior history of tobacco use. Mr. Alcala previously smoked one pack of cigarettes per day for at least 25 years. He reportedly quit smoking cigarettes 20 years ago. The patient does consume a few drinks (vodka) multiple days per week. There is no reported current or prior recreational drug use. HOME MEDICATIONS: The list of the patient's home medications is reportedly incomplete. Medications listed include Lasix 40 mg by mouth daily, levothyroxine 25 mcg by mouth daily, and pravastatin 20 mg by mouth at bedtime daily. Mr. Alcala was reportedly taking Xarelto prior to his admission as well. HOSPITAL MEDICATIONS: Eliquis, Flexeril, Pepcid, [place], levothyroxine, metoprolol, Zofran, thiamine, and zolpidem. ALLERGIES: MORPHINE, ALBUTEROL, AND IPRATROPIUM. NO KNOWN FOOD ALLERGIES. NO KNOWN ALLERGIES TO LATEX. NO KNOWN ALLERGIES TO IODINE OR OTHER CONTRAST MATERIALS. PHYSICAL EXAMINATION: VITAL SIGNS: Height 67 inches, weight 160 pounds, BMI 25.1 kg/m2, blood pressure 92/51 mmHg, pulse 86 beats per minute, respiratory rate 20 breaths per minute, and oxygen saturation 97% on room air. GENERAL: The patient is awake and alert, does not appear distressed. HEENT: Normocephalic and atraumatic. Pupils are equal, round, and sluggishly reactive to light. Moist mucous membranes. NECK: Supple. No appreciable thyromegaly. No appreciable carotid bruits. CARDIOVASCULAR: S1, S2, regular rate, irregular rhythm. A low grade systolic ejection murmur is appreciated. No rubs or gallops. RESPIRATORY: Clear to auscultation bilaterally. No wheezes, rhonchi, or rales. EXTREMITIES: The skin is warm and dry. No clubbing, cyanosis, or edema. The posterior tibial and dorsalis pedis pulses are 1+ and symmetric. SKIN: No rashes or lesions. NEUROLOGIC: Memory/Attention: The patient is awake and alert, oriented to person, place (hospital, city, state), not to time, and minimally the situation. Cranial Nerves: Cranial nerve I - not tested. Cranial nerves II, III, IV, and - pupils are equal and round, react sluggishly to light (from 4 mm to 2 mm). Extraocular movements intact. No nystagmus. There is a left homonymous hemianopsia to confrontation. Cranial nerve V - sensation to light touch and pinprick is intact in the bilateral V1 through V3 distributions. Strength in the temporalis and masseter muscles are within normal limits. Cranial nerve VII - the face is asymmetric on the left as are all facial movements. Mild central left facial weakness is appreciated. Cranial nerve VIII - hearing is intact to finger rub bilaterally. Cranial nerves IX, X - the soft palate elevates equally and symmetrically. Cranial nerve XI - normal strength of the bilateral sternocleidomastoid and trapezius muscles. Cranial nerve XII - the tongue protrudes midline and moves symmetrically from gqck-vq-mbsf. Strength: Bulk is normal. Strength is 5/5 in the right deltoid, biceps, triceps, wrist flexors and extensors, finger flexors and extensors, intrinsic hand muscles, hip flexors, knee flexors and extensors, ankle dorsiflexion and plantar flexion, and intrinsic foot muscles. Strength in the left arm is 4- to 4/5. Strength is approximately 2/5 in the left leg. Tone is decreased in the left arm and left leg. DTRs: Deep tendon reflexes are trace and symmetric at the triceps and biceps. Deep tendon reflexes are absent and symmetric at the brachioradialis, patellas, and Achilles. Plantar responses are flexor bilaterally. Sensation: Sensation is intact to light touch and pinprick in both arms. Mr. Alcala is able to sense pressure over both legs, but cannot differentiate between light touch and pinprick. Cerebellar: Upnnne-hrjm-wgmcep and heel-luo movements are intact without dysmetria or other impairment on the right. Ouytin-bpsj-gzpacn and heel-luo movements are impaired on the left, but within the bounds of paresis. Gait: Deferred. Speech: Spontaneous speech is mildly dysarthric without aphasia. Repetition is intact. Involuntary Movements: None. Pronator Drift: As per motor exam. LABORATORY DATA: The most recent basic metabolic panel is significant for sodium of 132, potassium of 3.4, BUN of 33, creatinine of 2.81, estimated GFR of 22, and calcium of 7.9. A liver function panel collected on March 29, 2019, was significant for an albumin of 3.0 and globulin of 3.6. The most recent CBC with differential and platelets reveals a white blood cell count of 7.86 with 69.1% neutrophils, 13.9% lymphocytes, 10.7% monocytes, 5.0% eosinophils, and 0.5% basophils. The hemoglobin and hematocrit are 9.9 and 31.4, respectively. The platelet count is 125. Blood cultures were collected on March 30, 2019, and are pending. DIAGNOSTIC STUDIES: Electrocardiogram on 03/30/2019: Demand pacemaker, interpretation based on intrinsic rhythm. Atrial fibrillation at 89 beats per minute with premature aberrantly conducted complexes. Right bundle-branch block. Chest x-ray on 03/27/2019: Interval improved interstitial edema. No consolidative pneumonia. CT of the abdomen/pelvis on 03/30/2019: 1. Unchanged cholelithiasis without visible gallbladder wall thickening. 2. Colonic diverticulosis without evidence of diverticulitis. Otherwise unremarkable noncontrast exam. No evidence of nephrolithiasis, appendicitis, or bowel obstruction. CT of the knee on 03/30/2019: Severe tricompartmental degenerative joint disease of the left knee with small joint effusion. CT of the brain without contrast on 03/30/2019: On my review, there is no evidence of recent large territorial ischemia, hemorrhage, mass, or mass effect. Remote lacunar infarcts are seen in the bilateral putamen, left frontal periventricular right matter, and right cerebellum. Cerebral volumes are appropriate for age. There are findings compatible with [id number] chronic small-vessel ischemic disease. According to the neuroradiologist who reviewed the images, there has been no significant change compared to a prior CT of the brain without contrast performed on August 04, 2016. ASSESSMENT AND PLAN: Mr. Alcala is a 73-year-old right-hand dominant man with an extensive past medical history including a prior stroke occurring 20 years ago with residual left homonymous hemianopsia, left facial droop, left hemiparesis, and left hemihypesthesia, who on the morning of March 30, 2019, developed worsening of baseline neurological deficits, lethargy, and confusion in the setting of hypotension. Mr. Alcala has undergone a thorough neurological examination with findings detailed above. His laboratory data and other diagnostic studies have been reviewed and are documented above. 1. Neurologic: I strongly suspect the worsening left hemiparesis observed on the morning of March 30, 2019, represent recrudescence of prior deficits secondary to hypotension/possible sepsis. A repeat CT of the brain without contrast will be performed at approximately 1100 on March 31, 2019 (24 hours following prior neuroimaging) to ensure the patient has not experienced another ischemic stroke. If this repeat CT of the brain without contrast does not reveal evidence of recent ischemia, no further evaluation for stroke is necessary. Peripheral neuropathy: Mr. Alcala has a known history of peripheral neuropathy of undetermined etiology. At present, the patient does not report burning pain, tingling, pins and needles sensation, or other uncomfortable sensation over the feet or legs. No further treatment is recommended at this time. 2. Cardiac: Mr. Alcala is hypotensive at present. His antihypertensive medications are being held. Due to compromised renal function, resuscitation with boluses or continuous intravenous fluids is recommended against to avoid volume overload. Monitor vital signs per unit protocol. Atrial fibrillation: Continue treatment with Eliquis 2.5 mg by mouth twice daily. 3. Respiratory: No active issues. Continue treatment with CPAP at night for obstructive sleep apnea. Monitor vital signs per unit protocol. 4. Endocrine: Mr. Alcala has a history of hyperlipidemia/dyslipidemia. Treatment with the patient's home medication of pravastatin 20 mg by mouth at bedtime daily should be continued. Hypothyroidism - continue treatment with the patient's home medication of levothyroxine 25 mcg by mouth daily. 5. FEN/GI: Mr. Alcala is tolerating oral intake. Continue thiamine supplementation. Replete electrolytes per unit protocol. 6. Renal: Acute kidney injury has resolved. Mr. Alcala appears to have returned to his baseline chronic kidney disease. Once again, replete electrolytes per unit protocol. Defer further treatment to the Renal Service. 7. Infectious Disease: Mr. Alcala is afebrile. However, the patient has developed worsening hypotension within the past 12 hours. Repeat blood cultures have been drawn. Follow up the results of those cultures. At present, the patient is not receiving any antibiotics. Defer further evaluation and treatment to the Infectious Disease service. 8. Gastrointestinal prophylaxis with Pepcid 20 mg by mouth twice daily with meals will be ordered. Deep venous thrombosis prophylaxis with Eliquis 2.5 mg by mouth twice daily will be continued. Thank you for this consultation. I will continue to follow the patient, while he remains in the hospital. TIME SPENT: 70 minutes. Angela Reyes MD CP/NANO /[id number] MTDD
[2019-03-31] VITALS (12 sets, daily range): BP systolic 94–133; BP diastolic 51–64
[2019-03-31 05:13] LABS: BASOPHILS % 0.4 % (0.0-1.0); EOSINOPHILS # (AUTO) 0.4 (0.0-0.4); EOSINOPHILS % 4.7 % (0.0-6.0); HEMATOCRIT 29.4 % (38.2-49.6); HEMOGLOBIN 9.2 g/dL (14.0-18.0); LYMPHOCYTES # (AUTO) 0.9 (1.0-3.2); LYMPHOCYTES % 11.5 % (18.0-39.1); MEAN CORPUSCULAR HEMOGLOBIN 30.7 pg (28-32); MEAN CORPUSCULAR HGB CONC 31.3 g/dL (31-35); MONOCYTES # (AUTO) 0.9 (0.2-0.8); MONOCYTES % 11.1 % (4.4-11.3); NEUTROPHILS # (AUTO) 5.8 (2.1-6.9); NEUTROPHILS % 71.7 % (38.7-80.0); PLATELET COUNT 128 x10e3/uL (140-360); RED CELL DISTRIBUTION WIDTH 14.1 % (11.7-14.4)
[2019-03-31 05:31] LABS: ALBUMIN 2.5 g/dL (3.5-5.0); ALBUMIN/GLOBULIN RATIO 0.8 (0.8-2.0); ALKALINE PHOSPHATASE 42 IU/L (40-150); ANION GAP 13.2 mmol/L (8-16); BLOOD UREA NITROGEN 36 mg/dL (7-26); BUN/CREATININE RATIO 12 (6-25); CALCIUM 7.9 mg/dL (8.4-10.2); CARBON DIOXIDE 23 mmol/L (22-29); CHLORIDE 103 mmol/L (98-107); CREATININE, SERUM 3.04 mg/dL (0.72-1.25); EST GLOMERULAR FILTRATION RATE 20 ML/MIN (60-); GLUCOSE 80 mg/dL (74-118); MAGNESIUM 1.4 MG/DL (1.3-2.1); PHOSPHORUS 4.7 MG/DL (2.3-4.7); POTASSIUM 4.2 mmol/L (3.5-5.1); SODIUM 135 mmol/L (136-145)
[2019-03-31 05:32] LABS: ALANINE AMINOTRANSFERASE < 6 IU/L (0-55)
[2019-03-31] MEDS: LEVOTHYROXINE SODIUM 25 MCG TABLET PO SCH (05:52)
--- NOTE | 2019-03-31 07:00 | NUR ---
BEDSIDE SHIFT REPORT RECEIVED FROM THE [employer] WORKER RN. PT DENIES NEEDS AT THIS TIME. EDUCATED PT ABOUT FALL PRECAUTIONS. PT REFUSED BED ALARM. CALL LIGHT WITH IN EASY REACH. INSTRUCTED PT TO USE CALL LIGHT FOR ANY NEEDS.
[2019-03-31] MEDS: FAMOTIDINE 20 MG TAB PO SCH ×2 (08:00→16:45)
[2019-03-31] MEDS: APIXAB 2.5 MG TABLET PO SCH ×2 (09:07→16:45)
[2019-03-31] MEDS: THIAMINE HCL 100 MG TAB PO SCH (09:09)
[2019-03-31] MEDS: METOPROLOL TARTRATE 25 MG TAB PO SCH ×2 (09:14→17:00)
--- NOTE | 2019-03-31 10:45 | NUR ---
PAGED DR. ALICEA TO CHECK IF THE PT NEED ANY ANTIBIOTICS. NO NEW ORDERS RECEIVED.
--- NOTE | 2019-03-31 11:21 | NUR ---
EDUCATED ABOUT IMM SIGNED FILED IN CHART AND LEFT COPY WITH PT BEDSIDE WITH CARD FOR ANY FURTHER QUESTIONS
--- NOTE | 2019-03-31 11:55 | NUR ---
PT OFF UNIT FOR PROCEDURE IN SAFE CONDITION.
--- NOTE | 2019-03-31 12:22 | NUR ---
PT BACK TO UNIT AFTER PROCEDURE. PT DENIES NEEDS AT THIS TIME.
--- NOTE | 2019-03-31 13:40 | Diagnostic Imaging Report ---
EXAMINATION: Head CT HISTORY: Left-sided weakness COMPARISON: Head CT 03/30/2019 TECHNIQUE: Multidetector axial images were obtained without contrast from the foramen magnum to the vertex . The images were reconstructed using brain and bone algorithms. Thin section brain images were reformatted into coronal and sagittal planes. Image quality: Motion/streaking artifact limits the evaluation of the skull base and posterior cranial fossa. Dose modulation, iterative reconstruction, and/or weight based adjustment of the mA/kV was utilized to reduce the radiation dose to as low as reasonably achievable. FINDINGS: Parenchyma: 1. Small chronic lacunar infarcts in the bilateral putamina and left frontal periventricular white matter. 2. Small chronic cortical infarct in the right cerebellum. 3. Persistent mild nonspecific white matter chronic small vessel ischemic changes.. 4. No mass or hemorrhage. No CT evidence of acute territorial vascular insult. Extra-axial spaces:No abnormal density. No extra-axial fluid collections Brain volume: Normal for age. Ventricles: No hydrocephalus or displacement. Arteries: No density suggestive of thrombus. Dural sinuses: No abnormal density. Extra-axial spaces: No abnormal density. Foramen magnum: No mass, Chiari malformation, or basilar invagination. Sella: No obvious mass. Paranasal/mastoid sinuses: Imaged portions unremarkable. Skull/Scalp: No lytic or blastic lesions. No fractures. IMPRESSION: 1. No acute intracranial hemorrhage or cortical infarcts. 2. Mild chronic microvascular ischemic changes, stable compared to head CT of 03/30/2019. Signed by: Dr. Mami Welch M.D. on 03/31/2019 1:37 PM
--- NOTE | 2019-03-31 13:49 | NUR ---
Nutrition Follow-up Note RD Recommendation for Physician: - Continue diet as ordered Plan of Care: RD following, monitoring for tolerance and adequacy Nutrition reason for involvement: Follow up Primary Diagnose(s): sepsis, debility, weakness, RUFINO PMH: CAD, MS, cardiomyopathy, renal failure, hypothyroidism, hypercholesteremia, atrial fibrillation, sick sinus syndrome Ht: 67in Wt: 160lb; 175.25lb BMI: 25.1kg/m2 IBW: 148lb +/- 10% RD Assessment: (03/31) Visited pt in the room. Pt ate ~75% of lunch today. No GI complains reported. Current diet is appropriate and adequate. Pt has no other question during my time of visit. (03/26) Visited pt in the room. Pt was very pleasant during my visit. His appetite has improved with 50-100% meal intake. No plan for HD today. Renal function has improved. Pt denied any nausea or vomiting. LBM 03/26. Pt denied any chewing or swallowing difficulty. Pt reported 80lbs weight loss in the last year due to chronic illnesses and multiple hospital admissions. Pt refused any oral nutrition supplements. Discussed menu options with pt. Will continue to monitor and follow. (03/24) Chart reviewed. Labs and meds reviewed. 73yo M, who was admitted for weakness. Pt was discussed during AM rounds. Pt had dialysis today and yesterday. Hyperkalemia has resolved. Renal function has improved. Visited pt in the room. Pt appeared uncomfortable with complain of nausea or vomiting. RN stated pt didnt eat breakfast this AM as he was being dialyzed. LBM 03/23. Unable to complete my assessment as pt was complaining of discomfort. Will reassess when appropriate. Current Diet: cardiac diet Malnutrition Evaluation (03/26/2019) The patient meets criteria for MODERATE protein-calorie malnutrition. Energy intake: <75% of estimated energy requirements for >3 months Weight loss: >20% in 1 year (Chronic) Fat loss: Mild- clavicle protrusion Muscle loss: Mild- temporal depression Supporting Evidence: Fluid accumulation: unable to evaluate Functional Status: reduced Malnutrition Evaluation (03/24/2019) Unable to evaluate during my time of visit. Diet Education Needs Assessment: Diet education not indicated. Nutrition Care Level: low Signed: Pebbles Zavala, MS, RD, LD
--- NOTE | 2019-03-31 18:00 | NUR ---
CALLED DR. ALICEA AND INFORMED PT LOW BP LEVELS. NO NEW ORDERS RECEIVED.
--- NOTE | 2019-03-31 18:07 | NUR ---
PAGED DR. SONG AND INFORMED PT VITAL SIGNS. PER DR. SONG HOLD METOPROLOL FOR THE EVENING.
--- NOTE | 2019-03-31 19:00 | NUR ---
BEDSIDE SHIFT REPORT GIVEN TO THE [employer]OUT WORKER RN. PT DENIED FURTHER NEEDS.
--- NOTE | 2019-03-31 19:20 | NUR ---
PATIENT RECEIVED. PATIENT IS RESTING IN BED, AAOX3. RESP EVEN AND UNLABORED. NO ACUTE DISTRESS NOTED AT THIS TIME. DAVIS IN PLACE, CLEAR AND YELLOW URINE NOTED, TELE IN PLACE. CALL LIGHT WITHIN REACH. INSTRUCT TO CALL FOR ASSISTANCE. PATIENT REFUSES BED ALARM. BED LOW/LOCKED. CONTINUE TO MONITOR CLOSELY
--- NOTE | 2019-03-31 19:46 | Progress Note ---
DATE: 03/31/2019 Cardiology Progress Note SUBJECTIVE: The patient denies chest pain. He does endorse dyspnea on exertion. OBJECTIVE: VITAL SIGNS: Temperature 98.7 degrees, pulse 85, respiratory rate 20, blood pressure 105/53, oxygen saturation 100% on room air. GENERAL: Awake, alert, in no acute distress. LUNGS: Diminished breath sounds at the right, otherwise clear to auscultation. CARDIOVASCULAR: Normal rate, irregularly irregular. Systolic murmur. ABDOMEN: Soft, nontender. EXTREMITIES: 1+ pitting edema. CARDIAC MEDICATIONS: Apixaban 2.5 mg p.o. b.i.d., metoprolol tartrate 12.5 mg p.o. b.i.d., levothyroxine 25 mcg p.o. daily. LABORATORY DATA: WBC 8.02, hemoglobin 9.2, hematocrit 29.4, platelets 128. Sodium 135, potassium 4.2, chloride 103, CO2 of 23, BUN 36, creatinine 3.04. CT brain, no acute intracranial hemorrhage or cortical infarcts. Mild chronic microvascular ischemic changes, stable compared to head CT of 03/30/2019. IMPRESSION: 1. Acute on chronic kidney disease. 2. Atrial fibrillation. 3. Chronic systolic heart failure with EF 45% to 50% on last echo at the office. 4. Coronary artery disease and peripheral artery disease. 5. Hypertension. 6. Status post permanent pacemaker. RECOMMENDATIONS: Monitor the patient on telemetry while admitted. Continue current cardiac medications including apixaban for CVA prophylaxis. Hold diuretics, given worsening renal function. Monitor volume status closely. The patient's blood pressure is acceptable. Continue low-dose metoprolol. We will monitor closely. Thank you for this consult. We will continue to follow. Dorita Lim MD ABS/MODL /[id number]
[2019-03-31] MEDS: PRAVASTATIN 20 MG TAB PO SCH (20:52)
[2019-04-01] VITALS (7 sets, daily range): BP systolic 104–134; BP diastolic 59–70
[2019-04-01] MEDS: LEVOTHYROXINE SODIUM 25 MCG TABLET PO SCH (05:14)
[2019-04-01 05:19] LABS: BASOPHILS % 0.5 % (0.0-1.0); EOSINOPHILS # (AUTO) 0.4 (0.0-0.4); EOSINOPHILS % 5.1 % (0.0-6.0); HEMOGLOBIN 9.2 g/dL (14.0-18.0); LYMPHOCYTES % 13.9 % (18.0-39.1); MEAN CORPUSCULAR HGB CONC 31.7 g/dL (31-35); MEAN CORPUSCULAR VOLUME 97.6 fL (81-99); MONOCYTES # (AUTO) 0.6 (0.2-0.8); MONOCYTES % 8.6 % (4.4-11.3); NEUTROPHILS # (AUTO) 5.3 (2.1-6.9); NEUTROPHILS % 71.2 % (38.7-80.0); PLATELET COUNT 145 x10e3/uL (140-360); RED BLOOD COUNT 2.97 x10e6/uL (4.3-5.7); RED CELL DISTRIBUTION WIDTH 14.2 % (11.7-14.4)
[2019-04-01 05:39] LABS: ANION GAP 13.2 mmol/L (8-16); CALCIUM 8.4 mg/dL (8.4-10.2); CREATININE, SERUM 3.01 mg/dL (0.72-1.25); POTASSIUM 4.2 mmol/L (3.5-5.1)
--- NOTE | 2019-04-01 07:05 | NUR ---
RCD PT AT BED PT IS ALERT AND ORIENTED RESTING ON BED NO SIGNS OF ANY DISTRESS NOTED IV PATENT BED LOW AND LOCKED CALL LIGHT IN REACH
[2019-04-01] MEDS: FAMOTIDINE 20 MG TAB PO SCH ×2 (07:30→16:30)
[2019-04-01] MEDS: THIAMINE HCL 100 MG TAB PO SCH (09:00)
[2019-04-01] MEDS: APIXAB 2.5 MG TABLET PO SCH (09:00)
[2019-04-01] MEDS: METOPROLOL TARTRATE 25 MG TAB PO SCH ×2 (09:00→17:00)
--- NOTE | 2019-04-01 13:55 | NUR ---
Discontinuing physical therapy services since patient is Mod I in functional mobility. Thank you. Addendum: 04/01/19 at 1356 by Dat pedraza PT Amended: Links added.
[2019-04-01] MEDS: FUROSEMIDE 40 MG TAB PO SCH (17:04)
--- NOTE | 2019-04-01 18:02 | Progress Note ---
DATE: 04/01/2019 Cardiology Progress Note SUBJECTIVE: The patient denies chest pain or shortness of breath. OBJECTIVE: VITAL SIGNS: Temperature 96.7 degrees, pulse 94, respiratory rate 18, blood pressure 133/70, and oxygen saturation 100% on room air. GENERAL: Awake, alert, in no acute distress. LUNGS: Clear to auscultation bilaterally. No wheeze or crackles. CARDIOVASCULAR: Normal rate. Irregularly irregular. Systolic murmur. ABDOMEN: Soft and nontender. EXTREMITIES: 1+ pitting edema. CARDIAC MEDICATIONS: 1. Metoprolol tartrate 12.5 mg p.o. b.i.d. 2. Apixaban 2.5 mg p.o. b.i.d. 3. Levothyroxine 25 mcg p.o. daily. LABORATORY DATA: WBC 7.42, hemoglobin 9.2, hematocrit 29, and platelets 145. Sodium 133, potassium is 4.2, chloride 103, CO2 of 21, BUN 40, and creatinine 3.01. TELEMETRY: V paced. IMPRESSION: 1. Acute on chronic kidney disease. 2. Atrial fibrillation. 3. Chronic systolic heart failure with ejection fraction 45% to 50% on last echo at the office. 4. Coronary artery disease. 5. Peripheral arterial disease. 6. Hypertension. 7. Status post permanent pacemaker. RECOMMENDATIONS: Monitor the patient on telemetry while admitted. Continue current cardiac medications including apixaban for CVA prophylaxis. Diuretics currently on hold given worsening renal function. Monitor volume status closely. The patient's blood pressure is currently acceptable. We will continue low-dose metoprolol. Thank you for this consult. We will continue to follow. Dorita Lim MD ABS/MODL /[id number]
--- NOTE | 2019-04-01 18:40 | NUR ---
PT RESTING ON BED BED SIDE REPORT GIVEN TO THE ONCOMING NURSE
[2019-04-01] MEDS: PRAVASTATIN 20 MG TAB PO SCH (21:23)
[2019-04-02] VITALS (8 sets, daily range): BP systolic 101–124; BP diastolic 55–66
[2019-04-02 05:38] LABS: BASOPHILS % 0.5 % (0.0-1.0); EOSINOPHILS # (AUTO) 0.3 (0.0-0.4); EOSINOPHILS % 5.6 % (0.0-6.0); HEMATOCRIT 26.5 % (38.2-49.6); HEMOGLOBIN 8.2 g/dL (14.0-18.0); LYMPHOCYTES # (AUTO) 0.8 (1.0-3.2); LYMPHOCYTES % 12.6 % (18.0-39.1); MEAN CORPUSCULAR HEMOGLOBIN 30.7 pg (28-32); MEAN CORPUSCULAR HGB CONC 30.9 g/dL (31-35); MEAN CORPUSCULAR VOLUME 99.3 fL (81-99); MONOCYTES # (AUTO) 0.6 (0.2-0.8); MONOCYTES % 10.5 % (4.4-11.3); NEUTROPHILS # (AUTO) 4.2 (2.1-6.9); NEUTROPHILS % 70.1 % (38.7-80.0); PLATELET COUNT 138 x10e3/uL (140-360); RED BLOOD COUNT 2.67 x10e6/uL (4.3-5.7); RED CELL DISTRIBUTION WIDTH 14.1 % (11.7-14.4)
[2019-04-02 05:53] LABS: ANION GAP 14.4 mmol/L (8-16); CREATININE, SERUM 3.47 mg/dL (0.72-1.25); POTASSIUM 4.4 mmol/L (3.5-5.1)
[2019-04-02] MEDS: FAMOTIDINE 20 MG TAB PO SCH ×2 (07:30→16:24)
[2019-04-02] MEDS: METOPROLOL TARTRATE 25 MG TAB PO SCH ×2 (09:00→16:24)
[2019-04-02] MEDS: THIAMINE HCL 100 MG TAB PO SCH (09:00)
[2019-04-02 12:00] LABS: LYMPHOCYTES % (MANUAL) 26 % (19-48); NEUTROPHILS % (MANUAL) 74 % (40-74); PLATELET ESTIMATE MODERATELY DECREASED; RBC MORPHOLOGY COMMENT NORMAL
--- NOTE | 2019-04-02 12:26 | Progress Note ---
DATE: 04/02/2019 Cardiology Progress Note SUBJECTIVE: The patient denies chest pain or shortness of breath. OBJECTIVE: VITAL SIGNS: Temperature 95.6 degrees, pulse 98, respiratory rate 18, blood pressure 130/62, and oxygen saturation 97% on room air. GENERAL: Awake, alert, no acute distress. LUNGS: Clear to auscultation bilaterally. No wheezes or crackles. CARDIOVASCULAR: Normal rate. Irregularly irregular. Systolic murmur. ABDOMEN: Soft, nontender. EXTREMITIES: 1+ pitting edema. CARDIAC MEDICATIONS: Metoprolol tartrate 12.5 mg p.o. b.i.d., furosemide 40 mg p.o. daily, and levothyroxine 25 mcg p.o. daily. LABORATORY DATA: WBC 6.02, hemoglobin 8.2, hematocrit 26.5, and platelets 138. Sodium 139, potassium 4.4, chloride 109, CO2 of 20, BUN 49, and creatinine 3.47. TELEMETRY: V paced. IMPRESSION: 1. Acute on chronic kidney disease. 2. Atrial fibrillation. 3. Chronic systolic heart failure with ejection 45% to 50% on last echo at the office. 4. Coronary artery disease. 5. Peripheral arterial disease. 6. Hypertension. 7. Status post permanent pacemaker. RECOMMENDATIONS: Monitor the patient on telemetry while admitted. Device interrogation revealed normal function. The patient's lower rate limit is set at 80. Telemetry strips were reviewed. No evidence of bradycardia to explain. The patient's symptoms were observed. Continue current cardiac medications including apixaban for CVA prophylaxis. Diuretics are currently held due to the patient's worsening renal function. Monitor volume status closely. The patient's blood pressure is currently acceptable. We will continue low-dose metoprolol. Thank you for this consult. We will continue to follow. Dorita Lim MD ABS/MODL /[id number]
--- NOTE | 2019-04-02 12:52 | NUR ---
EDUCATED ABOUT IMM, SIGNED, FILED IN CHART, WITH COPY LEFT WITH FAMILY AT BEDSIDE.
[2019-04-02] MEDS ORDERED: FUROSEMIDE INJ 10 MG/ML 4 ML VIAL IV ONE (16:00)
--- NOTE | 2019-04-02 16:00 | NUR ---
PT REFUSED RUDI HOSE HE SAID HE KNOWS ABOUT RUDI HOSE
[2019-04-02] MEDS: FUROSEMIDE 40 MG TAB PO SCH (17:47)
--- NOTE | 2019-04-02 18:45 | NUR ---
PT RESTING ON BED BED SIDE REPORT GIVEN TO ONCOMING NURSE
[2019-04-02] MEDS: PRAVASTATIN 20 MG TAB PO SCH (21:00)
[2019-04-02] MEDS: HYDROCODONE/APAP 5MG-325MG TAB PO PRN (23:29)
[2019-04-03] VITALS (8 sets, daily range): BP systolic 104–122; BP diastolic 54–72
[2019-04-03] MEDS: HYDROCODONE/APAP 5MG-325MG TAB PO PRN (04:50)
[2019-04-03 05:30] LABS: BASOPHILS % 0.4 % (0.0-1.0); EOSINOPHILS # (AUTO) 0.4 (0.0-0.4); EOSINOPHILS % 5.8 % (0.0-6.0); HEMATOCRIT 29.4 % (38.2-49.6); HEMOGLOBIN 9.2 g/dL (14.0-18.0); LYMPHOCYTES # (AUTO) 1.1 (1.0-3.2); LYMPHOCYTES % 15.7 % (18.0-39.1); MEAN CORPUSCULAR HEMOGLOBIN 30.9 pg (28-32); MEAN CORPUSCULAR HGB CONC 31.3 g/dL (31-35); MEAN CORPUSCULAR VOLUME 98.7 fL (81-99); MONOCYTES # (AUTO) 0.6 (0.2-0.8); MONOCYTES % 9.1 % (4.4-11.3); NEUTROPHILS # (AUTO) 4.7 (2.1-6.9); NEUTROPHILS % 68.4 % (38.7-80.0); PLATELET COUNT 180 x10e3/uL (140-360); RED BLOOD COUNT 2.98 x10e6/uL (4.3-5.7); RED CELL DISTRIBUTION WIDTH 14.2 % (11.7-14.4)
[2019-04-03 05:47] LABS: ANION GAP 18.4 mmol/L (8-16); CALCIUM 8.7 mg/dL (8.4-10.2); CREATININE, SERUM 3.9 mg/dL (0.72-1.25); POTASSIUM 4.4 mmol/L (3.5-5.1)
[2019-04-03] MEDS: FUROSEMIDE 40 MG TAB PO SCH ×2 (06:18→17:20)
[2019-04-03] MEDS: FAMOTIDINE 20 MG TAB PO SCH ×2 (06:18→16:38)
[2019-04-03] MEDS: LEVOTHYROXINE SODIUM 25 MCG TABLET PO SCH ×2 (06:18→06:19)
[2019-04-03] MEDS: THIAMINE HCL 100 MG TAB PO SCH (08:40)
[2019-04-03] MEDS: METOPROLOL TARTRATE 25 MG TAB PO SCH ×2 (08:40→16:38)
[2019-04-03] MEDS: APIXAB 2.5 MG TABLET PO SCH (15:20)
--- NOTE | 2019-04-03 16:15 | NUR ---
Dr. Memo du MD for Dr. Arcos spoke to patient in detail regarding dialysis and need for permanent access for dialysis, patient unsure about permanent dialysis at this time, orders received for labs in am and that patient will need to discuss options with Dr. Arcos, verbalized understanding and discussed with patient that dialysis is not need today, will continue to monitor labs
[2019-04-03] MEDS: PRAVASTATIN 20 MG TAB PO SCH (21:36)
[2019-04-04] VITALS (9 sets, daily range): BP systolic 108–126; BP diastolic 54–64
[2019-04-04] MEDS: HYDROCODONE/APAP 5MG-325MG TAB PO PRN ×2 (00:02→05:50)
[2019-04-04] MEDS: LEVOTHYROXINE SODIUM 25 MCG TABLET PO SCH (05:58)
[2019-04-04] MEDS: FUROSEMIDE 40 MG TAB PO SCH ×2 (05:58→18:00)
[2019-04-04 06:17] LABS: BASOPHILS % 0.6 % (0.0-1.0); EOSINOPHILS # (AUTO) 0.4 (0.0-0.4); EOSINOPHILS % 5.8 % (0.0-6.0); HEMATOCRIT 30.5 % (38.2-49.6); HEMOGLOBIN 9.4 g/dL (14.0-18.0); LYMPHOCYTES # (AUTO) 1.1 (1.0-3.2); LYMPHOCYTES % 15.4 % (18.0-39.1); MEAN CORPUSCULAR HEMOGLOBIN 30.7 pg (28-32); MEAN CORPUSCULAR HGB CONC 30.8 g/dL (31-35); MEAN CORPUSCULAR VOLUME 99.7 fL (81-99); MONOCYTES # (AUTO) 0.6 (0.2-0.8); MONOCYTES % 8.7 % (4.4-11.3); NEUTROPHILS # (AUTO) 4.8 (2.1-6.9); NEUTROPHILS % 69.1 % (38.7-80.0); PLATELET COUNT 190 x10e3/uL (140-360); RED BLOOD COUNT 3.06 x10e6/uL (4.3-5.7); RED CELL DISTRIBUTION WIDTH 14.4 % (11.7-14.4)
[2019-04-04 06:55] LABS: ANION GAP 14.3 mmol/L (8-16); CALCIUM 8.7 mg/dL (8.4-10.2); CREATININE, SERUM 3.6 mg/dL (0.72-1.25); POTASSIUM 4.3 mmol/L (3.5-5.1)
--- NOTE | 2019-04-04 07:49 | NUR ---
Report given to oncoming nurse Tia, walking round done.
[2019-04-04] MEDS: APIXAB 2.5 MG TABLET PO SCH ×2 (08:47→17:00)
[2019-04-04] MEDS: FAMOTIDINE 20 MG TAB PO SCH ×2 (08:47→16:30)
[2019-04-04] MEDS: THIAMINE HCL 100 MG TAB PO SCH (08:48)
[2019-04-04] MEDS: METOPROLOL TARTRATE 25 MG TAB PO SCH ×2 (08:49→17:00)
--- NOTE | 2019-04-04 11:14 | Progress Note ---
DATE: Cardiology Progress Note SUBJECTIVE: The patient is without any new complaints. He does endorse some shortness of breath and also left lower extremity swelling. Denies any chest pain or palpitation. OBJECTIVE: VITAL SIGNS: Temperature 96.2, pulse 83, respiratory rate 16, blood pressure 108/54, and oxygen saturation 100% on room air. GENERAL: Alert and oriented x3. Resting comfortably on the side of the bed. Does not appear to be in any acute distress. NECK: Supple. No JVD noted. CARDIOVASCULAR: Irregular rate and rhythm. Systolic murmur present. Normal rate. LUNGS: Clear to auscultation throughout. No wheezing. No rhonchi or crackles. ABDOMEN: Soft and nontender. EXTREMITIES: Lower extremity, 2+ pitting edema, left greater than right. CARDIOVASCULAR MEDICATIONS: 1. Levothyroxine 25 mcg p.o. daily. 2. Metoprolol 12.5 mg p.o. b.i.d. 3. Apixaban 2.5 mg p.o. b.i.d. LABORATORY DATA: WBC 6.89, hemoglobin 9.4, hematocrit 30.5, and platelets 190. TELEMETRY: V paced rhythm. IMPRESSION: 1. Acute on chronic kidney disease. 2. Atrial fibrillation. 3. Chronic systolic heart failure, last ejection fraction 45% to 50%. 4. Coronary artery disease. 5. Peripheral arterial disease. 6. Hypertension. 7. Status post pacemaker. 8. Neuropathy. RECOMMENDATIONS: Maintain on telemetry. Continue the above-listed cardiac medication. Recent device interrogation reveals normal function. The patient's lower limit is set at 80. Nephrology on the case and they will dictate when we can resume diuretics. The patient reports at this time they are holding off on dialysis. Monitor volume status closely. Monitor blood pressure closely as well. Dictated by Ailyn Lundberg NP MD CRESENCIO Pearson/NANO /[id number]
[2019-04-04] MEDS: PRAVASTATIN 20 MG TAB PO SCH (20:54)
[2019-04-05] VITALS (8 sets, daily range): BP systolic 101–129; BP diastolic 43–61
[2019-04-05] MEDS: HYDROCODONE/APAP 5MG-325MG TAB PO PRN ×3 (02:01→16:12)
--- NOTE | 2019-04-05 05:48 | Progress Note ---
DATE: 04/03/2019 Cardiology Progress Note SUBJECTIVE: The patient does endorse some shortness of breath and fatigue and also knee pain. Denies any chest pain. OBJECTIVE: VITAL SIGNS: Temperature 97.7, pulse 82, respiratory rate 18, blood pressure 104/56, and oxygen saturation 97% on room air. GENERAL: Alert and oriented x3. Standing at the window, looking outside. No acute distress. NECK: Supple. No JVD noted. LUNGS: Clear to auscultation throughout. No wheezing. No rhonchi or crackles. CARDIOVASCULAR: Normal rate, irregular beating pattern. Systolic murmur present. ABDOMEN: Soft and nontender. EXTREMITIES: Lower extremity, trace edema bilaterally. CARDIOVASCULAR MEDICATIONS: 1. Metoprolol tartrate 12.5 mg p.o. b.i.d. 2. Levothyroxine 25 mcg p.o. daily. LABORATORY DATA: WBC 6.93, hemoglobin 9.2, hematocrit 29.4, and platelets 180. Sodium 141, potassium 4.4, BUN 50, creatinine 3.90, and calcium 8.7. TELEMETRY: Atrial fibrillation. IMPRESSION: 1. Acute on chronic kidney disease. 2. Atrial fibrillation. 3. Chronic systolic heart failure, ejection fraction 45% to 50% on last echo in the office. 4. Coronary artery disease. 5. Peripheral arterial disease. 6. Hypertension. 7. Status post permanent pacemaker. RECOMMENDATIONS: Continue telemetry monitoring. Recent device interrogation reveals normal function. The patient's lower limit is set at 80. Continue current cardiac medication including apixaban for CVA prophylaxis. His diuretics are currently on hold due to the patient's worsening renal function. We will continue to monitor his creatinine closely and also blood pressure. Continue low-dose metoprolol as tolerated. Dictated by Ailyn Lundberg NP MD CRESENCIO Pearson/NANO /[id number]
[2019-04-05] MEDS: FUROSEMIDE 40 MG TAB PO SCH (05:51)
[2019-04-05] MEDS: LEVOTHYROXINE SODIUM 25 MCG TABLET PO SCH (05:51)
--- NOTE | 2019-04-05 07:09 | NUR ---
Report given to oncoming nurse, walking round done.
[2019-04-05] MEDS: APIXAB 2.5 MG TABLET PO SCH ×2 (08:16→16:11)
[2019-04-05] MEDS: THIAMINE HCL 100 MG TAB PO SCH (08:16)
[2019-04-05] MEDS: METOPROLOL TARTRATE 25 MG TAB PO SCH ×2 (08:16→16:12)
[2019-04-05] MEDS: FAMOTIDINE 20 MG TAB PO SCH ×2 (08:16→16:11)
--- NOTE | 2019-04-05 08:21 | NUR ---
Patient refuses RUDI hose. Educated on importance of having RUDI hose on. Patient remains refusing.
--- NOTE | 2019-04-05 09:20 | NUR ---
Discontinued Moore catheter as ordered. No s/s of acute distress noted.
[2019-04-05] MEDS ORDERED: TAMSULOSIN HCL 0.4 MG CAP PO ONE (09:30)
--- NOTE | 2019-04-05 09:42 | NUR ---
EDUCATED ABOUT IMM, SIGNED, FILED IN CHART, WITH COPY LEFT WITH FAMILY AT BEDSIDE.
--- NOTE | 2019-04-05 13:30 | NUR ---
Patient voided without discomfort
--- NOTE | 2019-04-05 15:57 | NUR ---
Right IJ HD catheter removed by Jeremiah Alvarado RN under sterile technique. Tip intact. No s/s of acute distress noted. 2x2 gauze and tegaderm placed. Will continue to monitor.
--- NOTE | 2019-04-05 18:00 | NUR ---
Spoke to pt regarding home health. Pt is agreeable. States he is fine with using any company that takes his insurance. Choice letter signed for [facility], [facility], and [facility]. Signed copy placed in chart. Copy to pt. Referral was faxed to [facility] Notified liaison Barbara Lorenzana of referral.
--- NOTE | 2019-04-05 19:15 | NUR ---
Report given to oncoming nurse of patient's status. Sitting on recliner. AAOX3 to time, person, place. Respirations even and unlabored. Call light within reach.
--- NOTE | 2019-04-05 20:16 | Progress Note ---
DATE: 04/05/2019 Cardiology Progress Note SUBJECTIVE: No major events overnight. OBJECTIVE: VITAL SIGNS: Temperature afebrile, pulse 85, respiratory rate 20, blood pressure 102/54, saturating 100% on room air. GENERAL: Elderly man, in no acute distress. CARDIOVASCULAR: Regular rate and rhythm. No murmurs, rubs, or gallops. LUNGS: Clear to auscultation bilaterally. ABDOMEN: Soft, nontender, nondistended. NEUROLOGIC AND PSYCHIATRIC: Alert and oriented to person, place, and time. Normal affect. INPATIENT MEDICATIONS: Reviewed. LABORATORY DATA: Reviewed. TELEMETRY DATA: Shows rate controlled atrial fibrillation. ASSESSMENT: 1. Acute on chronic kidney disease. 2. Atrial fibrillation, chronic. 3. Chronic systolic heart failure, ejection fraction 45% to 50%. 4. Coronary artery disease. 5. Peripheral arterial disease. 6. Hypertension. 7. Status post pacemaker placement. RECOMMENDATIONS: Overall, he is doing well. Continue apixaban 2.5 mg b.i.d. for anticoagulation. He remains rate controlled. Resume diuretics once renal function improves at his home oral dose. Thank you for this consult. We will continue to follow. MD CRISTOPHER Lozoya/NANO /[id number]
[2019-04-05] MEDS: TAMSULOSIN HCL 0.4 MG CAP PO SCH (20:42)
[2019-04-05] MEDS: PRAVASTATIN 20 MG TAB PO SCH (20:42)
[2019-04-06] VITALS (8 sets, daily range): BP systolic 100–156; BP diastolic 51–87
[2019-04-06] MEDS: HYDROCODONE/APAP 5MG-325MG TAB PO PRN ×2 (01:08→09:50)
[2019-04-06 05:05] LABS: BASOPHILS # (AUTO) 0.1 (0.0-0.1); BASOPHILS % 0.7 % (0.0-1.0); EOSINOPHILS # (AUTO) 0.5 (0.0-0.4); EOSINOPHILS % 6.7 % (0.0-6.0); HEMATOCRIT 28.9 % (38.2-49.6); HEMOGLOBIN 8.8 g/dL (14.0-18.0); LYMPHOCYTES % 13.7 % (18.0-39.1); MEAN CORPUSCULAR HEMOGLOBIN 30.4 pg (28-32); MEAN CORPUSCULAR HGB CONC 30.4 g/dL (31-35); MONOCYTES # (AUTO) 0.8 (0.2-0.8); MONOCYTES % 10.8 % (4.4-11.3); NEUTROPHILS # (AUTO) 4.8 (2.1-6.9); NEUTROPHILS % 67.7 % (38.7-80.0); PLATELET COUNT 218 x10e3/uL (140-360); RED BLOOD COUNT 2.89 x10e6/uL (4.3-5.7); RED CELL DISTRIBUTION WIDTH 14.3 % (11.7-14.4)
[2019-04-06 05:33] LABS: ANION GAP 18.3 mmol/L (8-16); CALCIUM 8.9 mg/dL (8.4-10.2); CREATININE, SERUM 4.29 mg/dL (0.72-1.25); POTASSIUM 5.3 mmol/L (3.5-5.1)
[2019-04-06] MEDS: LEVOTHYROXINE SODIUM 25 MCG TABLET PO SCH (05:45)
--- NOTE | 2019-04-06 07:40 | NUR ---
PAGED TO NOTIFY OF LAB RESULTS
[2019-04-06] MEDS: APIXAB 2.5 MG TABLET PO SCH (08:00)
[2019-04-06] MEDS: THIAMINE HCL 100 MG TAB PO SCH (08:00)
[2019-04-06] MEDS: FAMOTIDINE 20 MG TAB PO SCH ×2 (08:00→16:03)
[2019-04-06] MEDS: FUROSEMIDE 40 MG TAB PO SCH (08:00)
[2019-04-06] MEDS: METOPROLOL TARTRATE 25 MG TAB PO SCH ×2 (08:00→16:04)
--- NOTE | 2019-04-06 08:46 | NUR ---
Patient aware bladder scan to be done after voiding. Patient states "I will let you know the next time I void"
--- NOTE | 2019-04-06 08:53 | NUR ---
Repaged to notify of lab results
--- NOTE | 2019-04-06 09:30 | NUR ---
aware per discharge to be held.
[2019-04-06] MEDS ORDERED: SOD POLYSTYRENE SULFONATE SUSP 15 GM/60 ML BTL PO ONE (09:45)
[2019-04-06] MEDS ORDERED: LACTULOSE SYRUP 20 GM/30 ML UDC PO ONE (09:45)
--- NOTE | 2019-04-06 09:55 | NUR ---
16 F de la rosa inserted as ordered. Lashon Patiño Rn observed in the sterile insertion of catheter. 50cc of clear yellow urine noted. De La Rosa securement device in place.
--- NOTE | 2019-04-06 10:22 | NUR ---
O aware of 's order to insert Moore. Notified patient voided 30 minutes prior to Moore insertion. Upon insertion 50 cc of urine noted.
--- NOTE | 2019-04-06 13:02 | NUR ---
Patient resting in bed, lights off, using relaxation techniques for headache. BP 156/87 P68 Addendum: 04/06/19 at 1303 by BAMBI DE LA GARZA RN ERROR
--- NOTE | 2019-04-06 13:10 | NUR ---
aware of output. See orders
--- NOTE | 2019-04-06 13:16 | NUR ---
Spoke with Alondra with [facility] to notify patient to have HD tomorrow 04/07/19 per
[2019-04-06] MEDS ORDERED: FUROSEMIDE INJ 10 MG/ML 4 ML VIAL IV ONE (13:45)
--- NOTE | 2019-04-06 15:07 | NUR ---
Received call from Lupe RN, radiology nurse. States "Per Dr. Figueredo, Eliquis need to be on hold for 48 hours. Patient took Eliquis this morning. Procedure scheduled for ." Paged to notify of message
--- NOTE | 2019-04-06 15:28 | NUR ---
aware tunneled cath to be placed on morning. Eliquis placed on hold. Notified Alondra with [facility] patient to be dialyzed on 04/[address] Arcos
--- NOTE | 2019-04-06 15:44 | NUR ---
SPOKE WITH PATIENT ABOUT GETTING SET UP FOR DIALYSIS CHAIR, SIGNED CHOICE FOR [facility] WOULD LIKE AND FRIDAY 9 AM BUT WILL TAKE WHAT CAN GET AND WORK IN TO APPROPRIATE CHOICE.
--- NOTE | 2019-04-06 15:55 | NUR ---
Notified Lupe LAYTON ,with radiology, Dr.Khan colon with Right IJ placement on morning.
[2019-04-06] MEDS: CYCLOBENZAPRINE HCL 10 MG TAB PO PRN (16:32)
--- NOTE | 2019-04-06 17:45 | Progress Note ---
DATE: 04/06/2019 Cardiology Progress Note SUBJECTIVE: No major events overnight. Potassium was elevated today. Creatinine continues to go up. Plan is for hemodialysis soon. OBJECTIVE: VITAL SIGNS: Temperature afebrile, pulse 68, respiratory rate 18, blood pressure 109/55, saturating 97% on room air. GENERAL: Elderly man, in no acute distress. CARDIOVASCULAR: Regular rate and rhythm. No murmurs, rubs, or gallops. LUNGS: Clear to auscultation bilaterally. ABDOMEN: Soft, nontender, and nondistended. NEURO AND PSYCH: Alert and oriented to person, place, and time. Normal affect. INPATIENT MEDICATIONS: Reviewed. LABORATORY DATA: Reviewed. Potassium 5.3, creatinine 4.3, continues to worsen. TELEMETRY DATA: Reviewed, shows rate controlled atrial fibrillation, atrial flutter with the V-paced rhythm. ASSESSMENT: 1. Dpyxp-mv-hnxxsnv kidney disease. 2. Atrial fibrillation, chronic. 3. Chronic systolic heart failure, ejection fraction 45% to 50%. 4. Coronary artery disease. 5. Peripheral arterial disease. 6. Hypertension. 7. Status post pacemaker placement. RECOMMENDATIONS: Doing well from cardiovascular standpoint. Continue apixaban 2.5 mg b.i.d. Okay to hold for any procedures. Remains rate controlled. We will defer volume management and dialysis to Nephrology. Thank you for this consult. We will continue to follow. MD CRISTOPHER Lozoya/MODL /[id number]
--- NOTE | 2019-04-06 19:02 | NUR ---
Report given to oncoming nurse of patient's status.Sitting on recliner. No s/s of acute distress noted. call light within reach.
--- NOTE | 2019-04-06 19:05 | NUR ---
Pt visited in room during nursing rounds. Patient alert and oriented x3. Up with assist using walker prn. Pt currently resting on bedside recliner chair. Moore catheter in place for 24 hr urine collection as per MD order. Urine specimen (for 24 hr urine) will be sent at 1000 (04/07/19). Pt states he feels fine. Call luque within reach. Will monitor closely.
[2019-04-06] MEDS: PRAVASTATIN 20 MG TAB PO SCH (21:00)
[2019-04-06] MEDS: TAMSULOSIN HCL 0.4 MG CAP PO SCH (21:00)
--- NOTE | 2019-04-06 23:23 | NUR ---
Paged Mayte Alvares to verify order on date for the tunnel catheter placement procedure (either on 04/07 or 04/08). Awaiting on MD call back.
[2019-04-07] VITALS (8 sets, daily range): BP systolic 106–137; BP diastolic 53–66
[2019-04-07] MEDS: LEVOTHYROXINE SODIUM 25 MCG TABLET PO SCH (06:36)
[2019-04-07] MEDS: FAMOTIDINE 20 MG TAB PO SCH ×2 (06:36→16:45)
--- NOTE | 2019-04-07 06:50 | NUR ---
rounded with ui application developer nurse, patient aware of change and in no distress. call luque within reach and bed in lowest position.
[2019-04-07] MEDS: FUROSEMIDE 40 MG TAB PO SCH (08:50)
[2019-04-07] MEDS: THIAMINE HCL 100 MG TAB PO SCH (08:50)
[2019-04-07] MEDS: METOPROLOL TARTRATE 25 MG TAB PO SCH ×2 (12:00→16:45)
--- NOTE | 2019-04-07 14:30 | NUR ---
per Dr Arcos, patient will need dialysis tomorrow after tunneled catheter is placed. Called [facility] to schedule dialysis. Patient to have catheter placed at 8 am.
[2019-04-07 15:05] LABS: CREATININE,URINE RANDOM 42.42 mg/dL (63-166); TOTAL PROTEIN, URINE 91.8 mg/dL (1-14)
[2019-04-07 15:58] LABS: CALCIUM 8.9 mg/dL (8.4-10.2); CREATININE, SERUM 4.77 mg/dL (0.72-1.25)
--- NOTE | 2019-04-07 18:45 | NUR ---
rounded with power and recovery shift engineer nurse, patient aware of change and in no distress. patient sitting in bedside chair with call luque in reach.
[2019-04-07] MEDS: PRAVASTATIN 20 MG TAB PO SCH (20:09)
[2019-04-07] MEDS: TAMSULOSIN HCL 0.4 MG CAP PO SCH (20:09)
[2019-04-08] VITALS (10 sets, daily range): BP systolic 111–182; BP diastolic 50–74
[2019-04-08] MEDS: CYCLOBENZAPRINE HCL 10 MG TAB PO PRN (00:06)
[2019-04-08] MEDS: LEVOTHYROXINE SODIUM 25 MCG TABLET PO SCH (04:34)
[2019-04-08 05:06] LABS: BASOPHILS % 0.6 % (0.0-1.0); EOSINOPHILS # (AUTO) 0.5 (0.0-0.4); EOSINOPHILS % 6.5 % (0.0-6.0); HEMATOCRIT 26.6 % (38.2-49.6); HEMOGLOBIN 8.2 g/dL (14.0-18.0); LYMPHOCYTES # (AUTO) 0.9 (1.0-3.2); LYMPHOCYTES % 13.6 % (18.0-39.1); MEAN CORPUSCULAR HEMOGLOBIN 30.7 pg (28-32); MEAN CORPUSCULAR HGB CONC 30.8 g/dL (31-35); MEAN CORPUSCULAR VOLUME 99.6 fL (81-99); MONOCYTES # (AUTO) 0.5 (0.2-0.8); MONOCYTES % 7.5 % (4.4-11.3); NEUTROPHILS # (AUTO) 4.9 (2.1-6.9); NEUTROPHILS % 71.4 % (38.7-80.0); PLATELET COUNT 256 x10e3/uL (140-360); RED BLOOD COUNT 2.67 x10e6/uL (4.3-5.7); RED CELL DISTRIBUTION WIDTH 14.3 % (11.7-14.4)
[2019-04-08 05:34] LABS: ALBUMIN 2.8 g/dL (3.5-5.0); ALBUMIN/GLOBULIN RATIO 0.8 (0.8-2.0); ALKALINE PHOSPHATASE 65 IU/L (40-150); ANION GAP 16.8 mmol/L (8-16); BLOOD UREA NITROGEN 50 mg/dL (7-26); BUN/CREATININE RATIO 11 (6-25); CARBON DIOXIDE 20 mmol/L (22-29); CHLORIDE 107 mmol/L (98-107); EST GLOMERULAR FILTRATION RATE 13 ML/MIN (60-); GLUCOSE 81 mg/dL (74-118); POTASSIUM 4.8 mmol/L (3.5-5.1); SODIUM 139 mmol/L (136-145)
[2019-04-08 05:38] LABS: ALANINE AMINOTRANSFERASE < 6 IU/L (0-55)
--- NOTE | 2019-04-08 06:50 | NUR ---
rounded with night clerk nurse, patient aware of change and in no distress. call luque within reach and bed in lowest position.
[2019-04-08] MEDS ORDERED: SODIUM CHLORIDE 0.9% 250ML 250 ML ONE (07:00)
[2019-04-08] MEDS ORDERED: LIDOCAINE HCL 1% LOCAL INJ 20 ML VIAL ONE (07:00)
--- NOTE | 2019-04-08 07:17 | NUR ---
patient alert and oriented, leaving unit via hospital bed to radiology for tunneled catheter placement.
[2019-04-08] MEDS ORDERED: HEPARIN SOD (PORCINE) 1000 UNIT/ML 30ML ONE (07:29)
[2019-04-08] MEDS ORDERED: MIDAZOLAM HCL 2 MG/2 ML VIAL ONE (07:35)
[2019-04-08] MEDS ORDERED: FENTANYL CITRATE/PF 100MCG/2 ML INJ ONE (07:36)
[2019-04-08] MEDS ORDERED: LIDOCAINE 2% /EPINEPHRINE 20 ML SDV INJ ONE (08:12)
[2019-04-08] MEDS ORDERED: CEFAZOLIN SOD 1 GM/NS 50ML 50 ML IV ONE (08:13)
--- NOTE | 2019-04-08 09:40 | NUR ---
report received from Lupe, patient drowsy, but easily awakened. Patient to arrive back to unit via hospital bed.
--- NOTE | 2019-04-08 09:50 | NUR ---
patient returned to unit via hospital bed, drowsy but oriented and easily awakened. call luque within reach and bed in lowest position.
[2019-04-08] MEDS: FAMOTIDINE 20 MG TAB PO SCH ×2 (10:10→16:23)
[2019-04-08] MEDS: METOPROLOL TARTRATE 25 MG TAB PO SCH ×2 (10:10→16:23)
[2019-04-08] MEDS: FUROSEMIDE 40 MG TAB PO SCH (10:10)
[2019-04-08] MEDS: THIAMINE HCL 100 MG TAB PO SCH (10:11)
[2019-04-08] MEDS: LIDOCAINE 5% PATCH TP SCH (10:28)
[2019-04-08] MEDS ORDERED: SODIUM CHLORIDE 0.9% 1000ML 2,000 ML ONE (11:09)
[2019-04-08] MEDS ORDERED: SODIUM CHLORIDE 0.9% 250ML 500 ML IV PRN (11:15)
[2019-04-08] MEDS ORDERED: MANNITOL 25% 12.5GM/50 ML VIAL IV PRN (11:15)
[2019-04-08] MEDS ORDERED: SODIUM CHLORIDE 0.9% 1000ML 2,000 ML IV PRN (11:15)
[2019-04-08] MEDS ORDERED: HEPARIN SOD (PORCINE) 1000 UNIT/ML SDV IV PRN (11:15)
[2019-04-08] MEDS ORDERED: EPOETIN ALFA 10000 UNIT/ML VIAL SC SCH (12:15)
[2019-04-08] MEDS ORDERED: IRON SUCROSE 100 MG in SODIUM CHLORIDE 0.9% 100 ML 100 ML IV SCH (13:00)
--- NOTE | 2019-04-08 15:21 | Diagnostic Imaging Report ---
Exam: Tunnel Dialysis Catheter Insertion Clinical History: End-stage renal disease Consent: Benefits and risks were explained to the patient who gave consent to the procedure. Complication: None immediate Sedation: The procedure was performed with conscious sedation. Continuous cardiorespiratory monitoring was performed by a registered nurse throughout the procedure. Total sedation time 20 minutes Total fluoroscopy time 0.6 minutes Total image 1 Medication: Versed 2 mg, Fentanyl 100 ug Procedure: The right chest and neck were prepped and draped in usual sterile fashion. 2% lidocaine was used as local anesthetic. Under ultrasound guidance the right internal jugular vein, which was patent, was accessed using 21 g micropuncture needle. A hard copy of the image was obtained. A second incision was made in the right chest wall, follow by creation of a subcutaneous tunnel by blunt dissection. The tunnel dialysis catheter was pulled through the tunnel and inserted through the venotomy site until the tip is at the cavoatrial junction under fluoroscopic guidance. Both lumens flushed and aspirated easily and were heparinized. The catheter was secured using 2-0 Prolene and the venotomy site was closed using Dermabond. The patient tolerated the procedure well without any adverse reaction, and was transferred to the department in stable condition. Impression: Successful tunnel dialysis catheter insertion. Signed by: Dr. Dick Maldonado MD on 04/08/2019 3:17 PM
--- NOTE | 2019-04-08 15:28 | NUR ---
spoke to [facility] to make sure patient is on the schedule for dialysis for tomorrow 04/09 and Tuesday 04/10, patient is confirmed on schedule for both days.
[2019-04-08] MEDS: IRON SUCROSE 100 MG in SODIUM CHLORIDE 0.9% 100 ML 100 ML IV SCH (16:23)
[2019-04-08] MEDS: EPOETIN ALFA 10000 UNIT/ML VIAL SC SCH (16:24)
--- NOTE | 2019-04-08 19:12 | NUR ---
Bedside report and walking rounds with day shift RN complete. Pt resting in bed and in no apparent distress. All safety measures ensured and pt call luque near.
[2019-04-08] MEDS: PRAVASTATIN 20 MG TAB PO SCH (21:17)
[2019-04-08] MEDS: TAMSULOSIN HCL 0.4 MG CAP PO SCH (21:17)
[2019-04-09] VITALS (7 sets, daily range): BP systolic 93–132; BP diastolic 46–66
[2019-04-09 05:24] LABS: TOTAL PROTEIN 24HR, URINE 1285.2 mg/24hr (50-100)
[2019-04-09] MEDS: LEVOTHYROXINE SODIUM 25 MCG TABLET PO SCH (06:14)
--- NOTE | 2019-04-09 07:27 | NUR ---
Bedside report and walking rounds complete with day shift RN.
[2019-04-09] MEDS: METOPROLOL TARTRATE 25 MG TAB PO SCH ×2 (08:16→17:00)
[2019-04-09] MEDS: FUROSEMIDE 40 MG TAB PO SCH (08:16)
[2019-04-09] MEDS: LIDOCAINE 5% PATCH TP SCH (09:43)
[2019-04-09] MEDS ORDERED: TRAMADOL HCL 50 MG TAB PO ONE (11:00)
[2019-04-09] MEDS ORDERED: TRAMADOL HCL 50 MG TAB PO PRN (11:00)
[2019-04-09] MEDS: FAMOTIDINE 20 MG TAB PO SCH ×2 (11:32→16:59)
[2019-04-09] MEDS: THIAMINE HCL 100 MG TAB PO SCH (11:32)
--- NOTE | 2019-04-09 11:34 | NUR ---
Pharmacist, Sukumar called at this time. Attempted to get in touch with Dr. Dominguez. Ultram discontinued due to adverse reaction with cyclobenzaprine. Hydrocodone available on emar for pain.
[2019-04-09] MEDS: HYDROCODONE/APAP 5MG-325MG TAB PO PRN (11:54)
--- NOTE | 2019-04-09 12:51 | NUR ---
EDUCATED ABOUT IMM, SIGNED, FILED IN CHART, WITH COPY LEFT WITH FAMILY AT BEDSIDE
--- NOTE | 2019-04-09 13:16 | Progress Note ---
DATE: 04/09/2019 Cardiology Progress Note SUBJECTIVE: No major events overnight. The patient is now on dialysis. OBJECTIVE: VITAL SIGNS: Temperature afebrile, pulse 86, respiratory rate 18, blood pressure 132/66, saturating 95% on 2 L nasal cannula. GENERAL: Elderly white man, in no acute distress. CARDIOVASCULAR: Regular rate and rhythm. No murmurs, rubs, or gallops. LUNGS: Clear to auscultation bilaterally. ABDOMEN: Soft, nontender, nondistended. NEURO AND PSYCH: Alert and oriented to person, place, and time. Normal affect. INPATIENT MEDICATIONS: Reviewed. LABORATORY DATA: Reviewed. TELEMETRY DATA: Reviewed, shows rate controlled atrial fibrillation, atrial flutter with V-paced rhythm. ASSESSMENT: 1. Acute on chronic kidney disease, now on dialysis. 2. Chronic atrial fibrillation/atrial flutter. 3. Chronic systolic heart failure, ejection fraction 45% to 50%. 4. Coronary artery disease. 5. Peripheral arterial disease. 6. Hypertension. 7. Status post pacemaker placement. RECOMMENDATIONS: Doing well from cardiovascular standpoint. The patient now resumed on dialysis. Okay to continue apixaban 2.5 mg b.i.d. even with dialysis. Continue other cardiovascular medications. Thank you for this consult. We will continue to follow. MD CRISTOPHER Lozoya/NANO /[id number]
--- NOTE | 2019-04-09 13:32 | Progress Note ---
DATE: 04/09/2019 SUBJECTIVE: Seen on dialysis, tolerating procedure. He is on erythropoietin. OBJECTIVE: VITAL SIGNS: Temperature 96.5, pulse 80, and blood pressure 110/55. CHEST: Clear. Diminished breath sounds at the bases. EXTREMITIES: 1+ edema. ABDOMEN: Benign. NEURO: Alert, appropriate. Speech is normal. LABORATORY DATA: Serum CO2 is 19, K is 4.4, creatinine 3.9, BUN 50, and hemoglobin is 8.2. ASSESSMENT: 1. New end-stage renal disease. Fluid overload is improving. 2. Hyperkalemia is better controlled. 3. Metabolic acidosis. PLAN: 1. Hemodialysis today, 3-hour run, F160 filter, 3 potassium bath, blood flow rate 250 mL/minute. 2. Dialysate flow rate 500 mL/minute. 3. Continue Epogen. He also getting iron series and p.o. Lasix for the time being. 4. We will follow along after tomorrow can be safely discharged to go to outpatient dialysis clinic. MD ЮЛИЯ Barrios/UMAIRL /[id number]
--- NOTE | 2019-04-09 15:12 | NUR ---
Spoke with Dr. Wilson at this time, who is covering for Dr. Arcos. Orders received to remove Moore catheter.
--- NOTE | 2019-04-09 15:15 | NUR ---
Removed Moore catheter at this time. Prior to removal, drained 750 mL of cloudy, yellow urine form bag. Upon removal, 9.5 mL removed from balloon, removed Moore at that time. Tip intact. Patient tolerated well. Patient voiced much relief. Educated patient that he must urinate within 6 hours and if he doesn't there may be a chance of having to re-insert Moore. I told him to use the urinal when he goes so I could verify and record the amount. Patient verbalized understanding.
[2019-04-09] MEDS: APIXAB 2.5 MG TABLET PO SCH (17:00)
[2019-04-09] MEDS: IRON SUCROSE 100 MG in SODIUM CHLORIDE 0.9% 100 ML 100 ML IV SCH (17:00)
--- NOTE | 2019-04-09 18:55 | NUR ---
Received report from previous nurse. Call light within reach. Patient in bed.
--- NOTE | 2019-04-09 19:10 | NUR ---
Received report from previous nurse. Call light within reach. Patient in bed. Addendum: 04/10/19 at 0631 by Maegan Mejia RN ignore because wrote note already
[2019-04-09] MEDS: PRAVASTATIN 20 MG TAB PO SCH (21:09)
[2019-04-09] MEDS: TAMSULOSIN HCL 0.4 MG CAP PO SCH (21:09)
[2019-04-10] VITALS (7 sets, daily range): BP systolic 92–133; BP diastolic 46–60
[2019-04-10] MEDS: HYDROCODONE/APAP 5MG-325MG TAB PO PRN (00:30)
[2019-04-10] MEDS: LEVOTHYROXINE SODIUM 25 MCG TABLET PO SCH (06:17)
--- NOTE | 2019-04-10 07:21 | NUR ---
GAVE REPORT TO ONCOMING NURSE. CALL LIGHT WITHIN REACH. PATIENT IN BED.
[2019-04-10] MEDS: FAMOTIDINE 20 MG TAB PO SCH ×2 (07:45→16:15)
--- NOTE | 2019-04-10 08:30 | NUR ---
Notified by telemetry that patient's heart rate is in the 170's. Assessed patient sitting on the side of bed. Patient returned from walking in the [place]. Patient stated, "It was a little taxing." According to tele box, heart rate is 93, V-paced. Patient exhibiting shortness of breath, 24 breaths/minute. Patient's lung sounds are clear. Call luque within reach. Advised patient to rest while heart rate continues to decrease and to catch his breath. Patient verbalized understanding and agreed.
[2019-04-10] MEDS: ASPIRIN 81 MG CHEW TAB PO SCH ×2 (09:00→12:45)
[2019-04-10] MEDS: APIXAB 2.5 MG TABLET PO SCH (09:00)
[2019-04-10] MEDS: METOPROLOL TARTRATE 25 MG TAB PO SCH (09:00)
[2019-04-10] MEDS: FUROSEMIDE 40 MG TAB PO SCH (09:00)
[2019-04-10] MEDS: LIDOCAINE 5% PATCH TP SCH (10:04)
--- NOTE | 2019-04-10 12:17 | Progress Note ---
DATE: SUBJECTIVE: Mr. Alcala is lying in bed comfortably and is no complaint. He is getting his dialysis. REVIEW OF SYSTEMS: At present time; HEENT: Negative. PULMONARY: Negative. CARDIAC: Negative. : Negative. No new issues, otherwise. PHYSICAL EXAMINATION: VITAL SIGNS: Stable. Afebrile. HEENT: He is not icteric. NECK: Supple. CHEST: Clear. HEART: S1, S2. No S3, S4, or murmur. ABDOMEN: Soft. Bowel sounds present. No tenderness. No hepatosplenomegaly. EXTREMITIES: No edema. SKIN: No rash. IMPRESSION AND PLAN: 1. Tntmc-uj-qekqtos kidney disease, currently on dialysis. 2. Chronic atrial fibrillation. 3. Chronic congestive heart failure. 4. Coronary artery disease. 5. Hypertension. 6. Stable from Infectious Disease point of view, status post pneumonia, off antibiotics. Okay for discharge planning. MD KAROLYN Ball/NANO /[id number]
[2019-04-10] MEDS: THIAMINE HCL 100 MG TAB PO SCH (12:45)
[2019-04-10] MEDS ORDERED: METOPROLOL SUCCINATE 25 MG TAB XL PO SCH (16:00)
[2019-04-10] MEDS: DIGOXIN 0.25 MG TAB PO SCH (16:15)
[2019-04-10] MEDS: IRON SUCROSE 100 MG in SODIUM CHLORIDE 0.9% 100 ML 100 ML IV SCH (16:15)
[2019-04-10] MEDS: EPOETIN ALFA 10000 UNIT/ML VIAL SC SCH (16:15)
--- NOTE | 2019-04-10 19:05 | NUR ---
Received report from previous nurse. call light within reach. patient in bed.
[2019-04-10] MEDS: TAMSULOSIN HCL 0.4 MG CAP PO SCH (20:35)
[2019-04-10] MEDS: PRAVASTATIN 20 MG TAB PO SCH (20:36)
--- NOTE | 2019-04-11 | Progress Note ---
DATE: 04/10/2019 Medicine Progress Note SUBJECTIVE: I am covering for Dr. Dominguez. This patient has been here for several weeks now. He had multiple comorbidities. According to the nursing staff, he is currently doing well with no complaints. He is also on dialysis, found to be acute kidney injury. Possibly also end-stage renal disease. He was treated for underlying pneumonia, but he is off antibiotics. He is currently doing well, sitting on the edge of the bed. Awaiting for discharge hopefully soon. He did have an elevated heart rate, which needed to have Cardiology evaluate further. LABORATORY DATA: Reviewed. CBC looks within normal range. Chemistry reviewed and stable. MICROBIOLOGY: Noted. No antibiotics currently. IMAGING STUDIES: None. PHYSICAL EXAMINATION: VITAL SIGNS: He is afebrile. Pulse currently is 88, he does have a pacer, respiratory rate is 18, blood pressure 131/59, and pulse ox 95% on room air. GENERAL: Not in acute distress. Alert and oriented x3. Cooperative on examination. HEENT: Head is normocephalic and atraumatic. Eyes; pupils are equal, round, and reactive to light bilaterally. Extraocular movements intact bilaterally. Throat; no evidence of erythema or exudates in the posterior pharynx. Has poor dentition. NECK: Supple. Good range of motion throughout. PULMONARY: Clear to auscultation bilaterally. No wheezing, no rales, no rhonchi, no crackles appreciated. CARDIOVASCULAR: Positive S1 and S2. No murmurs, rubs, or gallops appreciated. ABDOMEN: Soft, nondistended, and nontender to palpation. Bowel sounds present. MUSCULOSKELETAL: Strength is 5/5 throughout. No evidence of any muscle deficits on examination. No weakness appreciated. NEUROLOGIC: Cranial nerve II through XII grossly intact. No evidence of any neurological deficits on exam. SKIN: Intact. Warm to touch. Good cap refill. PSYCHIATRIC: Normal affect and mood. EXTREMITIES: No edema. Good range of motion throughout. IMPRESSION: 1. Acute on chronic kidney disease, now on hemodialysis. 2. Chronic atrial fibrillation with a pacemaker. 3. Chronic congestive heart failure. 4. Coronary artery disease. 5. Hypertension. 6. Status post pneumonia, off antibiotics. PLAN: At this time, he is scheduled for dialysis next Friday as an outpatient. He is currently doing well. He is off antibiotics. He did have an episode of tachycardia, which I wanted to have Cardiology's input before discharge. Urology was following as well. He is currently doing well, follow the business process consultant's recommendations. Hopefully, he can be discharged here in the next 1 to 2 days. Possibly discharge tomorrow. The patient is very eager to discharge. MD SARIAH Vaz/NANO /[id number]
[2019-04-11 00:34] VITALS: BP 124/57
--- NOTE | 2019-04-11 01:00 | NUR ---
Patient asleep in bed.
[2019-04-11] MEDS: HYDROCODONE/APAP 5MG-325MG TAB PO PRN (02:54)
[2019-04-11 04:05] VITALS: BP 154/67
[2019-04-11 06:07] LABS: BASOPHILS % 0.6 % (0.0-1.0); EOSINOPHILS # (AUTO) 0.5 (0.0-0.4); EOSINOPHILS % 10.1 % (0.0-6.0); HEMATOCRIT 28.4 % (38.2-49.6); HEMOGLOBIN 8.7 g/dL (14.0-18.0); LYMPHOCYTES % 20.3 % (18.0-39.1); MEAN CORPUSCULAR HEMOGLOBIN 30.9 pg (28-32); MEAN CORPUSCULAR HGB CONC 30.6 g/dL (31-35); MEAN CORPUSCULAR VOLUME 100.7 fL (81-99); MONOCYTES # (AUTO) 0.7 (0.2-0.8); MONOCYTES % 13.7 % (4.4-11.3); NEUTROPHILS # (AUTO) 2.6 (2.1-6.9); NEUTROPHILS % 54.9 % (38.7-80.0); PLATELET COUNT 188 x10e3/uL (140-360); RED BLOOD COUNT 2.82 x10e6/uL (4.3-5.7); RED CELL DISTRIBUTION WIDTH 14.2 % (11.7-14.4)
[2019-04-11] MEDS: LEVOTHYROXINE SODIUM 25 MCG TABLET PO SCH (06:20)
[2019-04-11 06:24] LABS: ANION GAP 10.7 mmol/L (8-16); CALCIUM 9.3 mg/dL (8.4-10.2); CREATININE, SERUM 2.53 mg/dL (0.72-1.25); POTASSIUM 3.7 mmol/L (3.5-5.1)
--- NOTE | 2019-04-11 07:37 | NUR ---
GAVE REPORT TO ONCOMING NURSE. CALL LIGHT WITHIN REACH. PATIENT IN BED.
[2019-04-11] MEDS: FAMOTIDINE 20 MG TAB PO SCH (07:39)
[2019-04-11 08:00] VITALS: BP 145/61
[2019-04-11 08:51] VITALS: BP 145/61
[2019-04-11] MEDS: LIDOCAINE 5% PATCH TP SCH (08:56)
[2019-04-11] MEDS ORDERED: METOPROLOL SUCCINATE 25 MG TAB XL PO SCH (09:00)
[2019-04-11] MEDS: ASPIRIN 81 MG CHEW TAB PO SCH (09:22)
[2019-04-11] MEDS: DIGOXIN 0.25 MG TAB PO SCH (09:22)
[2019-04-11] MEDS: FUROSEMIDE 40 MG TAB PO SCH (09:22)
[2019-04-11] MEDS: THIAMINE HCL 100 MG TAB PO SCH (09:23)
[2019-04-11 12:01] VITALS: BP 153/83
[2019-04-11] MEDS ORDERED: ULTRAM50 MG PO (14:35)
[2019-04-11] MEDS ORDERED: CYCLOBENZAPRINE5 MG PO (14:36)
[2019-04-11] MEDS ORDERED: THIAMINE H100 MG/1 M PO (14:37)
[2019-04-11] MEDS ORDERED: FLOMAX0.4 MG PO (14:37)
[2019-04-11] MEDS ORDERED: TOPROL XL25 MG PO (14:38)
[2019-04-11] MEDS ORDERED: DIGOXIN250 MCG PO (14:39)
--- NOTE | 2019-04-11 15:49 | Progress Note ---
DATE: Cardiology Progress Note SUBJECTIVE: The patient is feeling better. Denies any chest pain, shortness of breath, or palpitations. OBJECTIVE: VITAL SIGNS: Temperature is 96.1, heart rate is 89, respirations 18, blood pressure is 145/61, and ox saturation is 94% on room air. GENERAL: Well-appearing elderly man, seated at bedside. HEAD: Normocephalic and atraumatic. CARDIOVASCULAR: Irregularly irregular, normal rate. LUNGS: Clear to auscultation. ABDOMEN: Soft, nontender, and nondistended. EXTREMITIES: No edema. LABORATORY DATA: Reviewed. CARDIOVASCULAR MEDICATIONS: Reviewed. TELEMETRY: Monitoring revealed ventricular paced rhythm. IMPRESSION: 1. Atrial fibrillation. 2. Chronic systolic congestive heart failure. 3. Coronary artery disease. 4. Peripheral artery disease. 5. Pacemaker implantation. 6. Corox-zn-mupvfmy kidney disease. RECOMMENDATIONS: I have changed his cardiovascular medications to Toprol-XL 25 mg b.i.d. and digoxin 0.25 mg daily for better heart rate control. Continue all other current cardiovascular medications including apixaban. The patient may be discharged from a cardiovascular standpoint with outpatient followup. DO RUDI Zimmerman/UMAIRL /[id number]
--- NOTE | 2019-04-12 08:41 | Progress Note ---
DATE: Cardiology Progress Note. SUBJECTIVE: The patient feels better and wants to go home. OBJECTIVE: VITAL SIGNS: Temperature is 96.5, heart rate is 78, respirations are 20, blood pressure is 118/60, oxygen saturation 97% on room air. GENERAL: Well-appearing elderly man, seated at bedside. CARDIOVASCULAR: Irregular rate and rhythm with episodes of rapid ventricular response. LUNGS: Clear to auscultation. ABDOMEN: Soft, nontender, nondistended. EXTREMITIES: No edema. NEUROLOGIC: No focal deficits noted. CARDIOVASCULAR MEDICATIONS: Reviewed. LABORATORY DATA: Reviewed. TELEMETRY: Monitoring revealed episodes of atrial fibrillation with rapid ventricular response. IMPRESSION: 1. Acute on chronic kidney disease. 2. Chronic atrial fibrillation/flutter. 3. Chronic systolic congestive heart failure. 4. Coronary artery disease. 5. Peripheral artery disease. 6. Hypertension. 7. History of pacemaker. RECOMMENDATIONS: The patient has intermittent episodes of rapid ventricular response. We will change metoprolol to long-acting. We will also give digoxin for better heart rate control. Maintain on telemetry monitoring. Continue Eliquis for anticoagulation. Jordi Birch DO BM/MODL /[id number]
== END 2019-04-11 15:10 | disposition home or self-care (01) | DRG 871 ==
LOC: ER 13:48 → ERHOLD 16:47 → ICU 20:12 → MED/SURG2 03-27 15:47
PROVIDERS: ADMIT Internal Medicine; ATTEND Internal Medicine
PROC: 02HV33Z Insertion of Infusion Device into Superior Vena Cava, Percutaneous Approach (ICD-10-PCS; principal; 2019-03-23)
PROC: 5A1D70Z Performance of Urinary Filtration, Intermittent, Less than 6 Hours Per Day (ICD-10-PCS; 2019-03-23)
PROC: 5A1D70Z Performance of Urinary Filtration, Intermittent, Less than 6 Hours Per Day (ICD-10-PCS; 2019-03-24)
PROC: 5A1D70Z Performance of Urinary Filtration, Intermittent, Less than 6 Hours Per Day (ICD-10-PCS; 2019-03-26)
PROC: 5A1D70Z Performance of Urinary Filtration, Intermittent, Less than 6 Hours Per Day (ICD-10-PCS; 2019-04-08)
PROC: 0JH63XZ Insertion of Tunneled Vascular Access Device into Chest Subcutaneous Tissue and Fascia, Percutaneous Approach (ICD-10-PCS; 2019-04-08)
PROC: 02HV33Z Insertion of Infusion Device into Superior Vena Cava, Percutaneous Approach (ICD-10-PCS; 2019-04-08)
PROC: 5A1D70Z Performance of Urinary Filtration, Intermittent, Less than 6 Hours Per Day (ICD-10-PCS; 2019-04-09)
PROC: 5A1D70Z Performance of Urinary Filtration, Intermittent, Less than 6 Hours Per Day (ICD-10-PCS; 2019-04-10)
DX: A41.9 Sepsis, unspecified organism (principal); J18.9 Pneumonia, unspecified organism; N17.0 Acute kidney failure with tubular necrosis; N18.6 End stage renal disease; N17.9 Acute kidney failure, unspecified; E87.2 Acidosis; E87.1 Hypo-osmolality and hyponatremia; I13.2 Hypertensive heart and chronic kidney disease with heart failure and with stage 5 chronic kidney disease, or end stage renal disease; I42.9 Cardiomyopathy, unspecified; I50.22 Chronic systolic (congestive) heart failure; I69.354 Hemiplegia and hemiparesis following cerebral infarction affecting left non-dominant side; I48.92 Unspecified atrial flutter; E86.0 Dehydration; M10.9 Gout, unspecified; I25.10 Atherosclerotic heart disease of native coronary artery without angina pectoris; E11.22 Type 2 diabetes mellitus with diabetic chronic kidney disease; Z99.2 Dependence on renal dialysis; Z79.4 Long term (current) use of insulin; D69.6 Thrombocytopenia, unspecified; E83.39 Other disorders of phosphorus metabolism; R33.9 Retention of urine, unspecified; R19.7 Diarrhea, unspecified; R65.20 Severe sepsis without septic shock; G47.33 Obstructive sleep apnea (adult) (pediatric); K57.30 Diverticulosis of large intestine without perforation or abscess without bleeding; I25.2 Old myocardial infarction; Z95.0 Presence of cardiac pacemaker; I73.9 Peripheral vascular disease, unspecified; I48.0 Paroxysmal atrial fibrillation; Z86.74 Personal history of sudden cardiac arrest; Z95.5 Presence of coronary angioplasty implant and graft; Z96.651 Presence of right artificial knee joint; Z96.642 Presence of left artificial hip joint; E87.5 Hyperkalemia; I69.392 Facial weakness following cerebral infarction; I69.398 Other sequelae of cerebral infarction; E03.9 Hypothyroidism, unspecified; Z79.52 Long term (current) use of systemic steroids
CPT/HCPCS: 36415; 36556; 36558; 36600; 70450; 71045; 71046; 71250; 74176; 74470; 76770; 76937; 77001; 80048; 80053; 81001; 81050; 82270; 82550; 82553; 82575; 82607; 82746; 82805; 82948; 83090; 83605; 83735; 83880; 83921; 84100; 84156; 84436; 84443; 84479; 84484; 84550; 85025; 85610; 85730; 86704; 86706; 87040; 87045; 87070; 87205; 87340; 87493; 90962; 93005; 94640; 94660; 97139; 99152; 99153; 99284; C1769; J0456; J0690; J0692; J1170; J1644; J1756; J1940; J2001; J2150; J2250; J2405; J2550; J2920; J3010; J3370; J3411; J3475; J3480; J7030; J7040; J7050; J7070; Q4081; Q9967

== ENCOUNTER 2019-07-01 15:15 | Observation (INO) | payer MEDICARE ==
[~2019-07-01] VITALS: Ht 170.2 cm; Wt 72.6 kg
[~2019-07-01 15:15] MED LIST changes: +CYCLOBENZAPRINE5 MG PO; +DIGOXIN250 MCG PO; +FLOMAX0.4 MG PO; +THIAMINE H100 MG/1 M PO; +TOPROL XL25 MG PO; +ULTRAM50 MG PO
--- OUTSIDE RECORDS SUMMARY | 2019-07-01 15:19 | XMS REPORT | Summary of Care ---
Author Author CALVIN Logan, ABBI Organization Unknown Address Unknown Phone Unavailable Care Team Providers Care Cupola Melter Helper Name Role Phone ABBI MINAYA M.D. Unavailable [...] not documented Status: Procedures Procedure Dates Details [U] XRAY HIP UNILATERAL WITH PELVIS WHEN PERFORMED 1 VW LEFT [id number] Date: 06-Apr-2019 Immunization Name Dates Details Immunizations not documented Social History Name Dates Details Unknown if ever smoked Vital Signs Date Test Result Details No Known Vitals to report Results Date Description Value Details Results not documented Plan of Care Name Dates Details Planned Observations Planned Goals not documented Interventions Provided Labs/Procedures/Imaging* [U] XRAY HIP UNILATERAL WITH PELVIS WHEN PERFORMED 1 VW LEFT [id number]; To Be Done: 09 Apr 2019 Instructions Name Dates Details Instructions not documented Encounters Appointment; ABBI MINAYA M.D. Encounter Diagnosis: Problem not documented On: 30-Oct-2018 8:30 Appointment; ABBI MINAYA M.D. Encounter Diagnosis: Problem not documented On: 27-Nov-2018 11:00 Appointment; ABBI MINAYA M.D. Encounter Diagnosis: Problem not documented On: 08-Jan-2019 11:00 Appointment; ABBI MINAYA M.D. Encounter Diagnosis: Problem not documented On: 09-Apr-2019 11:00
[2019-07-01] MEDS ORDERED: ASPIRIN 81 MG CHEW TAB PO ONE (16:00)
--- NOTE | 2019-07-01 16:00 | NUR ---
rec'd pt in rm 1 from dialysis via [facility] for chest pain. placed on the monitor. denies any chest pain at this time.
--- NOTE | 2019-07-01 16:44 | Diagnostic Imaging Report ---
EXAMINATION: CHEST SINGLE (PORTABLE) INDICATION: Chest pain COMPARISON: Chest radiograph 03/27/2019 FINDINGS: LINES/TUBES:Left chest pacer and right IJ tunneled hemodialysis catheter unchanged. LUNGS:The lungs are moderately inflated. There is perihilar fullness and indistinctness of the pulmonary vasculature. PLEURA:No pleural effusion or pneumothorax. MEDIASTINUM:Cardiomediastinal silhouette is stably enlarged. Atherosclerotic calcifications of the thoracic aorta. BONES/SOFT TISSUES:No acute osseous injury. ABDOMEN:No free air under the diaphragm. IMPRESSION: Cardiomegaly and mild pulmonary edema. Signed by: Boyd Wilhelm MD on 07/01/2019 4:41 PM
[2019-07-01 17:47] LABS: BASOPHILS # (AUTO) 0.1 (0.0-0.1); EOSINOPHILS # (AUTO) 0.5 (0.0-0.4); EOSINOPHILS % 7.2 % (0.0-6.0); HEMATOCRIT 40.2 % (38.2-49.6); HEMOGLOBIN 13.2 g/dL (14.0-18.0); LYMPHOCYTES # (AUTO) 1.2 (1.0-3.2); LYMPHOCYTES % 16.5 % (18.0-39.1); MEAN CORPUSCULAR HEMOGLOBIN 33.6 pg (28-32); MEAN CORPUSCULAR HGB CONC 32.6 g/dL (31-35); MEAN CORPUSCULAR VOLUME 103.1 fL (81-99); MONOCYTES # (AUTO) 0.7 (0.2-0.8); NEUTROPHILS # (AUTO) 4.5 (2.1-6.9); PLATELET COUNT 150 x10e3/uL (140-360); RED BLOOD COUNT 3.93 x10e6/uL (4.3-5.7); RED CELL DISTRIBUTION WIDTH 13.2 % (11.7-14.4)
[2019-07-01 17:49] LABS: ANION GAP 12.9 mmol/L (8-16); CREATININE, SERUM 2.37 mg/dL (0.72-1.25); MAGNESIUM 2.1 MG/DL (1.3-2.1); POTASSIUM 3.9 mmol/L (3.5-5.1)
[2019-07-01 17:50] LABS: ALBUMIN 3.4 g/dL (3.5-5.0); ALBUMIN/GLOBULIN RATIO 0.8 (0.8-2.0); CREATINE KINASE MB 10.2 ng/mL (0-5.0)
[2019-07-01 17:52] LABS: INR 0.96; PARTIAL THROMBOPLASTIN TIME 78.8 seconds (23.8-35.5); PROTHROMBIN TIME 13.3 seconds (11.9-14.5)
[2019-07-01] MEDS ORDERED: NITROGLYCERIN 0.4 MG SUBL SL PRN (18:45)
[2019-07-01] MEDS ORDERED: ONDANSETRON HCL INJ 2MG/ML 2ML 2 MG/ML VIAL IV PRN (18:45)
--- NOTE | 2019-07-01 18:57 | NUR ---
pt updated on pending admit
[2019-07-01] MEDS: FAMOTIDINE 20 MG/2 ML VIAL IV SCH (19:56)
[2019-07-01 20:31] VITALS: BP 157/65
--- NOTE | 2019-07-01 22:25 | NUR ---
PT IS TRANSFERRED FROM ER AOX3 .DENIES CHEST PAIN .PT HAS TELE #4 PACING RT CHEST JOANA CATHETER FOR DIALYSIS . RESPIRATIONS ARE EVEN AND UNLABORED RT AC 20 G S/L .CALL LIGHT WITH IN REACH . ASSESSMENT DONE .ORIENTED THE PT TO THE ENVIRONMENT .CONTINUE TO MONITOR
[2019-07-02] VITALS: BP 131/64
[2019-07-02 00:09] VITALS: BP 157/65
[2019-07-02 04:00] VITALS: BP 120/59
[2019-07-02] MEDS: FAMOTIDINE 20 MG/2 ML VIAL IV SCH (06:30)
--- NOTE | 2019-07-02 06:37 | NUR ---
PT RESTED DURING THE NIGHT .DENIES CHEST PAIN .CALL LIGHT WITH IN REACH .CONTINUE TO MONITOR
[2019-07-02 06:53] LABS: BASOPHILS # (AUTO) 0.1 (0.0-0.1); BASOPHILS % 0.8 % (0.0-1.0); EOSINOPHILS # (AUTO) 0.5 (0.0-0.4); EOSINOPHILS % 7.1 % (0.0-6.0); HEMOGLOBIN 12.5 g/dL (14.0-18.0); LYMPHOCYTES # (AUTO) 0.9 (1.0-3.2); LYMPHOCYTES % 13.1 % (18.0-39.1); MEAN CORPUSCULAR HEMOGLOBIN 33.2 pg (28-32); MEAN CORPUSCULAR HGB CONC 32.1 g/dL (31-35); MEAN CORPUSCULAR VOLUME 103.7 fL (81-99); MONOCYTES # (AUTO) 0.7 (0.2-0.8); MONOCYTES % 11.1 % (4.4-11.3); NEUTROPHILS # (AUTO) 4.5 (2.1-6.9); NEUTROPHILS % 67.6 % (38.7-80.0); PLATELET COUNT 136 x10e3/uL (140-360); RED BLOOD COUNT 3.76 x10e6/uL (4.3-5.7); RED CELL DISTRIBUTION WIDTH 13.4 % (11.7-14.4)
--- NOTE | 2019-07-02 07:05 | NUR ---
BEDSIDE REPORT GIVEN TO THE ONCOMING NURSE
[2019-07-02 07:13] LABS: ALBUMIN/GLOBULIN RATIO 0.8 (0.8-2.0); ANION GAP 13.2 mmol/L (8-16); CALCIUM 8.9 mg/dL (8.4-10.2); CHOL/HDL RATIO 3.8 (3.9-4.7); CREATININE, SERUM 2.5 mg/dL (0.72-1.25); POTASSIUM 4.2 mmol/L (3.5-5.1)
--- NOTE | 2019-07-02 07:30 | NUR ---
PT UP IN BED ,DENIES CHEST PAIN ,
[2019-07-02 07:35] VITALS: BP 146/70
[2019-07-02 07:38] LABS: CREATINE KINASE MB 4.9 ng/mL (0-5.0)
[2019-07-02 08:00] VITALS: BP 146/70
[2019-07-02] MEDS ORDERED: ASPIRIN 81 MG ENTERIC COATED PO SCH (09:00)
--- NOTE | 2019-07-02 09:32 | NUR ---
DR ALICEA HERE DISCHARGED PT HOME.
--- NOTE | 2019-07-02 10:30 | NUR ---
PT DISCHARGED HOME ,IV DCD WITHOUT REDNESSOR SWELLING,PRESCRIPTIONS AND INSTRUCTIONS GIVEN COPY ON CHART.TRANSPORTED TO AUTO VIA W/C
--- NOTE | 2019-07-02 19:11 | Discharge Summary ---
PRIMARY CARE PHYSICIAN: Dr. Darrell Franco. CHIEF COMPLAINT: Right side chest pain with right arm pain, increased with right arm movement. HISTORY: The patient is a 73-year-old male, thought he may have pulled something heavy, developed some right-sided chest pain. When he moves his right upper extremity, it is pulling on the right chest muscle pain. The pain is similar. He came in complaining of chest pain with negative cardiac enzymes. It is noncardiac pain. On physical examination, the patient is otherwise stable. He is on dialysis on Friday, , and Friday. The patient has been in the past. He is stable to go home today. Resume home medication. MD MACK Rubio/NANO /[id number]
== END 2019-07-02 10:48 | disposition home or self-care (01) ==
LOC: ER 15:15 → ERHOLD 19:20 → MED/SURG3 21:55
PROVIDERS: ADMIT Internal Medicine; ATTEND Internal Medicine
DX: R07.2 Precordial pain (principal); I12.0 Hypertensive chronic kidney disease with stage 5 chronic kidney disease or end stage renal disease; N18.6 End stage renal disease; Z99.2 Dependence on renal dialysis; I25.10 Atherosclerotic heart disease of native coronary artery without angina pectoris; Z96.642 Presence of left artificial hip joint; Z96.651 Presence of right artificial knee joint; Z82.49 Family history of ischemic heart disease and other diseases of the circulatory system; Z88.5 Allergy status to narcotic agent; Z88.8 Allergy status to other drugs, medicaments and biological substances; M79.601 Pain in right arm
CPT/HCPCS: 36415 ×2; 71045; 80053 ×2; 80061; 82550 ×2; 82553 ×2; 83735; 83880; 84484 ×2; 85025 ×2; 85610; 85730; 93005; 99284; G0378 ×2

== ENCOUNTER 2019-09-30 05:15 | Emergency (ER) | payer MEDICARE, OTHER ==
[~2019-09-30] VITALS: Ht 170.2 cm; Wt 72.6 kg
--- OUTSIDE RECORDS SUMMARY | 2019-09-30 05:20 | XMS REPORT | Summary of Care ---
Author Author CHANEL MURILLO M.D. Unknown Address Unknown Phone Unavailable Care Team Providers Care Supervisor Cell Maintenance Name Role Phone CHANEL MURILLO M.D. Unavailable Unavailable JOBY GIBBS, JESUS Remy Unavailable Unavailable GILBERTO BOYD MD Unavailable Unavailable LIDIA GIBBS [place], CHANEL LANE Unavailable Unavailable Kathy Minaya MD Unavailable Unavailable Unavailable Unavailable Functional Status Name Dates Details Functional status health issues are not documented Status: Name Dates Details Cognitive status health issues are not documented Status: Problems Name Dates Details Fracture of femoral neck, left (820.8, S72.002A) Status: Active End stage renal disease (585.6, N18.6) Status: Active Postoperative examination (V67.00, Z09) Status: Active Medications Name Dates Details Sevelamer Carbonate TABS Active Ferrous Sulfate TABS * Refills: 0 Active Levothyroxine Sodium TABS * Refills: 0 Active traMADol HCl TABS * Refills: 0 Active Folic Acid TABS * Refills: 0 Active Digoxin TABS * Refills: 0 Active Pravastatin Sodium TABS * Refills: 0 Active Thiamine HCl TABS * Refills: 0 Active Flexeril TABS * Refills: 0 Active Tamsulosin HCl CAPS * Refills: 0 Active Metoprolol Succinate ER TB24 * Refills: 0 Active Allergies and Adverse Reactions Name Dates Details Morphine Derivatives (Allergy) Status: Active Past Medical History Name Dates Details History of arthritis (V13.4, Z87.39) Status: Resolved History of atrial fibrillation (V12.59, Z86.79) Status: Resolved History of chest pain (V13.89, Z87.898) Status: Resolved History of diabetes mellitus (V12.29, Z86.39) Status: Resolved History of hypercholesterolemia (V12.29, Z86.39) Status: Resolved History of hypertension (V12.59, Z86.79) Status: Resolved History of hypothyroidism (V12.29, Z86.39) Status: Resolved History of stroke (V12.54, Z86.73) Status: Resolved Past myocardial infarction (412, I25.2) Status: Resolved Procedures Procedure Dates Details History of Pacemaker insertion Completed History of Hip Surgery Completed History of Knee Replacement Completed History of Arm surgery Completed Immunization Name Dates Details Immunizations not documented Social History Name Dates Details - Status: Name Dates Details Former smoker Vital Signs Date Test Result Details No Known Vitals to report Results Date Description Value Details Results not documented Plan of Care Name Dates Details Planned Observations Planned Goals not documented Interventions Provided Plan* I evaluated Mr. Rico today post 1st stage creation of an AVF. The fistula has strong flow and ready for the 2nd stage. * Will now schedule him for a Right arm AVF Transposition. The procedure, risks and potential complications were reviewed with verbalized understanding. Instructions Name Dates Details Instructions not documented Encounters Appointment; KATYH MINAYA M.D. Encounter Diagnosis: Problem not documented On: 30-Oct-2018 8:30 Appointment; KATHY MINAYA M.D. Encounter Diagnosis: Problem not documented On: 27-Nov-2018 11:00 Appointment; KATHY MINAYA M.D. Encounter Diagnosis: Problem not documented On: 08-Jan-2019 11:00 Appointment; CHANEL MURILLO M.D. Encounter Diagnosis: Problem not documented On: 30-Jun-2019 10:00 Appointment; CHANEL MURILLO M.D. Encounter Diagnosis: Problem not documented On: 28-Jul-2019 8:00 Appointment; CHANEL MURILLO M.D. Encounter Diagnosis: Problem not documented On: 25-Aug-2019 8:45
[2019-09-30 05:49] LABS: BASOPHILS # (AUTO) 0.1 (0.0-0.1); EOSINOPHILS # (AUTO) 0.4 (0.0-0.4); EOSINOPHILS % 5.1 % (0.0-6.0); HEMATOCRIT 39.5 % (38.2-49.6); HEMOGLOBIN 12.5 g/dL (14.0-18.0); LYMPHOCYTES # (AUTO) 1.7 (1.0-3.2); LYMPHOCYTES % 22.7 % (18.0-39.1); MEAN CORPUSCULAR HEMOGLOBIN 32.7 pg (28-32); MEAN CORPUSCULAR HGB CONC 31.6 g/dL (31-35); MEAN CORPUSCULAR VOLUME 103.4 fL (81-99); MONOCYTES % 13.4 % (4.4-11.3); NEUTROPHILS # (AUTO) 4.2 (2.1-6.9); NEUTROPHILS % 57.1 % (38.7-80.0); PLATELET COUNT 190 x10e3/uL (140-360); RED BLOOD COUNT 3.82 x10e6/uL (4.3-5.7); RED CELL DISTRIBUTION WIDTH 14.3 % (11.7-14.4)
--- NOTE | 2019-09-30 06:03 | Diagnostic Imaging Report ---
EXAMINATION: CHEST SINGLE (PORTABLE) COMPARISON: Chest x-ray 07/01/2019 INDICATION: Chest port removed ^Shiley catheter DISCUSSION: Frontal view of the chest obtained at 0527 hours. HEART AND MEDIASTINUM: The heart is top normal in size LINES: Pacer/defibrillator wires terminate in the right atrium and right ventricle. Mild right IJ hemodialysis catheter has been removed. LUNGS: Low lung volumes and mild bibasilar atelectasis. Vascular markings are normal. No pneumonia or pulmonary edema. PLEURA: No pleural effusion or pneumothorax. BONES AND SOFT TISSUES: No focal osseous lesion. The soft tissues are normal. IMPRESSION: Removal of dialysis catheter without pneumothorax. Mild bibasilar atelectasis. Signed by: Dr. Eloisa Mathews MD on 09/30/2019 6:01 AM
[2019-09-30 06:08] LABS: ALBUMIN 3.7 g/dL (3.5-5.0); ALBUMIN/GLOBULIN RATIO 0.9 (0.8-2.0); ANION GAP 19.6 mmol/L (8-16); CREATININE, SERUM 6.06 mg/dL (0.72-1.25); POTASSIUM 3.6 mmol/L (3.5-5.1)
[2019-09-30 06:18] LABS: CREATINE KINASE MB 8.5 ng/mL (0-5.0)
[2019-09-30 07:03] LABS: INR 1.04; PROTHROMBIN TIME 14.2 seconds (11.9-14.5)
[2019-09-30] MEDS ORDERED: SODIUM CHLORIDE 0.9% 250ML 250 ML ONE (10:19)
[2019-09-30] MEDS ORDERED: MIDAZOLAM HCL 2 MG/2 ML VIAL ONE (10:48)
[2019-09-30] MEDS ORDERED: HEPARIN SOD (PORCINE) 1000 UNIT/ML SDV ONE (10:49)
[2019-09-30] MEDS ORDERED: FENTANYL CITRATE/PF 100MCG/2 ML INJ ONE (10:49)
[2019-09-30] MEDS ORDERED: CEFAZOLIN SOD 1 GM/NS 50ML 50 ML IV ONE (11:07)
[2019-09-30 11:48] VITALS: BP 118/59
--- NOTE | 2019-09-30 12:08 | Diagnostic Imaging Report ---
Exam: Tunnel Dialysis Catheter Insertion Clinical History: Renal failure Consent: Benefits and risks were explained to the patient who gave consent to the procedure. Complication: None immediate Total fluoroscopy time 2 minutes Total images 1 Sedation: The procedure was performed with conscious sedation. Continuous cardiorespiratory monitoring was performed by a registered nurse throughout the procedure. Total sedation time 15 minutes. Medication: Versed 1 mg, Fentanyl 50 ug Procedure: Sterile barrier technique was followed including cap, mask, sterile gown, sterile gloves, sterile sheet, hand hygiene and 2% chlorhexidine for cutaneous antisepsis. The right chest and neck were prepped and draped in usual sterile fashion. 2% lidocaine was used as local anesthetic. Under ultrasound guidance the right internal jugular vein, which was patent, was accessed using 21 g micropuncture needle. A hard copy of the image was obtained. A second incision was made in the right chest wall, follow by creation of a subcutaneous tunnel by blunt dissection. The tunnel dialysis catheter was pulled through the tunnel and inserted through the venotomy site until the tip is at the cavoatrial junction under fluoroscopic guidance. Both lumens flushed and aspirated easily and were heparinized. The catheter was secured using 2-0 Prolene and the venotomy site was closed using Dermabond. The patient tolerated the procedure well without any adverse reaction, and was transferred to the floor in stable condition. Impression: Successful tunnel dialysis catheter insertion. Signed by: Dr. Dick Maldonado MD on 09/30/2019 12:05 PM
== END 2019-09-30 12:57 | disposition home or self-care (01) ==
LOC: ER 05:15
DX: N18.6 End stage renal disease (principal); Z99.2 Dependence on renal dialysis
CPT/HCPCS: 36415; 36558; 71045; 74470; 76937; 77001; 80053; 82550; 82553; 84484; 85025; 85610; 99284; C1769; C1892; J0690; J1644; J2250; J3010; J7050